=== PATIENT | female | born 1955 | race Caucasian/White ===

== ENCOUNTER 2016-11-07 17:42 | Emergency (ER) | payer MEDICARE, MEDICAID ==
[~2016-11-07] VITALS: Ht 152.4 cm; Wt 68.2 kg
[~2016-11-07 17:42] MED LIST: BENZ2TAB10 PO; LEVO100 PO; LITH300C3 PO; LORA0.5T2 PO; PROP10 PO; RISP2 PO; RISPC375 IM; TEMA15CA PO
[2016-11-07] MEDS ORDERED: HALOPERIDOL LACTATE 5 MG/ML VIAL IM ONE (19:15)
[2016-11-07] MEDS ORDERED: LORazepam 2 MG/ML VIAL IM ONE (19:15)
[2016-11-07 19:30] LABS: BASOPHILS % (AUTO) 0.6 % (0.0-2.0); EOSINOPHILS % (AUTO) 2.2 % (1.0-6.0); HEMATOCRIT 36.8 % (36-46); HEMOGLOBIN 11.9 g/dL (12.0-16.0); LYMPHOCYTES # (AUTO) 2.3 K/uL (1.0-4.8); LYMPHOCYTES % (AUTO) 20.9 % (22.0-44.0); MEAN CORPUSCULAR HEMOGLOBIN 30.2 pg (26.0-34.0); MEAN CORPUSCULAR HGB CONC 32.2 G/dL (31.0-37.0); MEAN CORPUSCULAR VOLUME 94 fL (80-100); MONOCYTES # (AUTO) 0.9 K/uL (0.1-1.0); MONOCYTES % (AUTO) 8.3 % (2.0-9.0); NEUTROPHILS # (AUTO) 7.6 K/uL (1.8-7.7); PLATELET COUNT (AUTO) 306 K/uL (150-450); RED BLOOD CELL COUNT(AUTO) 3.93 MIL/uL (4.00-5.20); WHITE BLOOD COUNT (AUTO) 11.2 K/uL (4.5-11.0)
[2016-11-07 19:39] LABS: ANION GAP 9 mmol/L (8-16); CARBON DIOXIDE 25 mmol/L (22-29); CHLORIDE 104 mmol/L (98-107); CREATININE 1.34 mg/dL (0.60-1.30); GLOMERULAR FILTR. RATE CALC 40 mL/min (>60); POTASSIUM 3.9 mmol/L (3.5-5.1); SODIUM SERUM 138 mmol/L (136-145); UREA NITROGEN, BLOOD 9 mg/dL (7-18)
[2016-11-07 19:45] LABS: ALANINE AMINOTRANSFERASE 34 U/L (12-78); ASPARTATE AMINOTRANSFERASE 28 U/L (15-37); BILIRUBIN,TOTAL 0.5 mg/dL (0.1-1.0); TOTAL PROTEIN, SERUM 7.5 g/dL (6.4-8.2)
[2016-11-07 20:06] VITALS: BP 117/69
[2016-11-10] MEDS ORDERED: LITH300C3 PO (11:03)
== END 2016-11-07 20:11 | disposition home or self-care (01) ==
LOC: EMS 17:43
DX: F20.0 Paranoid schizophrenia (principal); F15.10 Other stimulant abuse, uncomplicated; N28.9 Disorder of kidney and ureter, unspecified; I10 Essential (primary) hypertension; J44.9 Chronic obstructive pulmonary disease, unspecified; K21.9 Gastro-esophageal reflux disease without esophagitis; E03.9 Hypothyroidism, unspecified; F17.210 Nicotine dependence, cigarettes, uncomplicated; Z91.040 Latex allergy status
CPT/HCPCS: 36415; 80053; 85025; 96372; 99284; G0480; J1630; J2060

== ENCOUNTER 2016-12-15 17:16 | Emergency (ER) | payer OTHER, MEDICAID ==
[~2016-12-15] VITALS: Ht 152.4 cm; Wt 61.4 kg
[2016-12-15] MEDS ORDERED: RisperiDONE MICROSPHERES 37.5 MG/2 ML SYRINGE IM ONE (19:00)
[2016-12-15 19:24] VITALS: BP 140/85
== END 2016-12-15 19:27 | disposition home or self-care (01) ==
LOC: EMS 17:19
DX: F20.0 Paranoid schizophrenia (principal); F32.9 Major depressive disorder, single episode, unspecified; F41.9 Anxiety disorder, unspecified; D64.9 Anemia, unspecified; J44.9 Chronic obstructive pulmonary disease, unspecified; I10 Essential (primary) hypertension; E03.9 Hypothyroidism, unspecified; K21.9 Gastro-esophageal reflux disease without esophagitis; M19.90 Unspecified osteoarthritis, unspecified site; F31.9 Bipolar disorder, unspecified; Z79.899 Other long term (current) drug therapy
CPT/HCPCS: 96372; 99284; J2794

== ENCOUNTER 2017-06-11 02:47 | Emergency (ER) | payer MEDICARE, OTHER ==
[~2017-06-11] VITALS: Ht 152.4 cm; Wt 68.2 kg
[~2017-06-11 02:47] MED LIST changes: -PROP10 PO; +PROP10TA72 PO; -RISP2 PO
[2017-06-11 02:58] VITALS: BP 153/77
[2017-06-11] MEDS ORDERED: CYCLOBENZAPRINE HCL 10 MG TABLET PO ONE (04:00)
[2017-06-11] MEDS ORDERED: KETOROLAC TROMETHAMINE 60 MG/2 ML VIAL IM ONE (04:00)
== END 2017-06-11 06:57 | disposition home or self-care (01) ==
LOC: EMS 02:50
DX: S39.012A Strain of muscle, fascia and tendon of lower back, initial encounter (principal); G89.29 Other chronic pain; K21.9 Gastro-esophageal reflux disease without esophagitis; E03.9 Hypothyroidism, unspecified; F17.210 Nicotine dependence, cigarettes, uncomplicated; I10 Essential (primary) hypertension; J44.9 Chronic obstructive pulmonary disease, unspecified; F32.9 Major depressive disorder, single episode, unspecified; F41.9 Anxiety disorder, unspecified; Z90.49 Acquired absence of other specified parts of digestive tract; W06.XXXA Fall from bed, initial encounter; Y93.89 Activity, other specified; Y92.89 Other specified places as the place of occurrence of the external cause; Y99.8 Other external cause status
CPT/HCPCS: 81002; 96372; 99283; J1885

== ENCOUNTER → 2017-10-28 | Outpatient (CLI) | payer MEDICARE, OTHER | END | disposition home or self-care (01) | LOC: RADPV 14:01 | PROVIDERS: ATTEND Podiatrist Foot & Ankle Surgery | DX: M19.071 Primary osteoarthritis, right ankle and foot (principal) ==

== ENCOUNTER 2018-02-19 11:23 | Emergency (ER) | payer MEDICARE, MEDICAID ==
[~2018-02-19] VITALS: Ht 152.4 cm; Wt 68.2 kg
[2018-02-19 11:25] VITALS: BP 126/86
== END 2018-02-19 15:44 | disposition left against medical advice (07) ==
LOC: EMS 11:26
DX: F69 Unspecified disorder of adult personality and behavior (principal); F41.9 Anxiety disorder, unspecified; F31.9 Bipolar disorder, unspecified; J44.9 Chronic obstructive pulmonary disease, unspecified; K21.9 Gastro-esophageal reflux disease without esophagitis; I10 Essential (primary) hypertension; E03.9 Hypothyroidism, unspecified; F20.9 Schizophrenia, unspecified; F17.210 Nicotine dependence, cigarettes, uncomplicated; Z90.49 Acquired absence of other specified parts of digestive tract; Z90.721 Acquired absence of ovaries, unilateral; Z53.21 Procedure and treatment not carried out due to patient leaving prior to being seen by health care provider

== ENCOUNTER 2018-07-05 13:36 | Emergency (ER) | payer MEDICARE, OTHER, SELFPAY ==
[~2018-07-05] VITALS: Ht 157.5 cm; Wt 55.9 kg
[2018-07-05 13:57] VITALS: BP 111/70
== END 2018-07-05 18:51 | disposition left against medical advice (07) ==
LOC: EMS 13:38
DX: Z53.21 Procedure and treatment not carried out due to patient leaving prior to being seen by health care provider (principal)
CPT/HCPCS: 93005

== ENCOUNTER 2018-07-07 13:15 | Inpatient (IN) | payer MEDICARE, MEDICAID ==
[~2018-07-07] VITALS: Ht 152.4 cm; Wt 59.0 kg
[2018-07-07 15:00] VITALS: BP 146/77
[2018-07-07 18:33] VITALS: BP 110/73
[2018-07-07] MEDS: PROPRANOLOL HCL 10 MG TABLET PO SCH (18:37)
[2018-07-07] MEDS: LITHIUM CARBONATE 300 MG CAPSULE PO SCH (18:37)
[2018-07-07] MEDS: RisperiDONE MICROSPHERES 37.5 MG/2 ML SYRINGE IM SCH (19:06)
[2018-07-07] MEDS ORDERED: MAGNESIUM HYDROXIDE SUSPENSION 30 ML UDCUP PO PRN (19:30)
[2018-07-07] MEDS ORDERED: ALBUTEROL SULFATE HFA 90 MCG/PUFF 8 GM INHALER IH PRN (19:30)
[2018-07-07] MEDS ORDERED: BACITRACIN 28.4 GM OINTMENT TP PRN (19:30)
[2018-07-07] MEDS ORDERED: CloNIDine HCL 0.1 MG TABLET PO PRN (19:30)
[2018-07-07] MEDS ORDERED: BENZOCAINE/MENTHOL LOZENGE MM PRN (19:30)
[2018-07-07] MEDS ORDERED: LOPERAMIDE HCL 2 MG CAPSULE PO PRN (19:30)
[2018-07-07] MEDS ORDERED: MAG HYDROX/AL HYDROX/SIMETH ES 30 ML SUSPENSION UDCUP PO PRN (19:30)
[2018-07-07] MEDS ORDERED: PETROLATUM,WHITE 71 GM JELLY TP PRN (19:30)
[2018-07-07] MEDS ORDERED: ONDANSETRON HCL 4 MG TABLET PO PRN (19:30)
[2018-07-07] MEDS ORDERED: TEMAZEPAM 15 MG CAPSULE PO SCH (21:00)
[2018-07-07] MEDS ORDERED: LORazepam 0.5 MG TABLET PO SCH (21:00)
[2018-07-07] MEDS: BENZTROPINE MESYLATE 2 MG TABLET PO SCH (21:00)
[2018-07-08] MEDS: LEVOTHYROXINE SODIUM 100 MCG TABLET PO SCH (07:04)
[2018-07-08 07:33] LABS: LITHIUM 1.26 mmol/L (0.60-1.20)
[2018-07-08 07:48] LABS: CHOL/HDL RATIO 1.9 (3.9-5.7); FREE T4 (FREE THYROXINE) 1.27 ng/dL (0.76-1.46); THYROID STIMULATING HORMONE 0.16 uIU/mL (0.36-3.74)
[2018-07-08 08:16] VITALS: BP 152/72
[2018-07-08] MEDS: OMEPRAZOLE 20 MG CAPSULE PO SCH (08:48)
[2018-07-08] MEDS: DOCUSATE SODIUM 100 MG CAPSULE PO SCH (08:48)
[2018-07-08] MEDS: PROPRANOLOL HCL 10 MG TABLET PO SCH ×3 (08:48→16:05)
[2018-07-08] MEDS: LITHIUM CARBONATE 300 MG CAPSULE PO SCH ×2 (08:48→16:05)
[2018-07-08 16:10] VITALS: BP 110/62
[2018-07-08] MEDS: BENZTROPINE MESYLATE 2 MG TABLET PO SCH (19:53)
[2018-07-09] MEDS: LEVOTHYROXINE SODIUM 100 MCG TABLET PO SCH (06:57)
[2018-07-09 08:05] VITALS: BP 141/71
[2018-07-09] MEDS: OMEPRAZOLE 20 MG CAPSULE PO SCH (08:38)
[2018-07-09] MEDS: PROPRANOLOL HCL 10 MG TABLET PO SCH ×3 (08:38→17:30)
[2018-07-09] MEDS: DOCUSATE SODIUM 100 MG CAPSULE PO SCH (08:38)
[2018-07-09 17:11] VITALS: BP 118/65
[2018-07-09] MEDS: BENZTROPINE MESYLATE 2 MG TABLET PO SCH (20:13)
[2018-07-10] MEDS: LEVOTHYROXINE SODIUM 100 MCG TABLET PO SCH (06:40)
[2018-07-10] MEDS: PROPRANOLOL HCL 10 MG TABLET PO SCH ×3 (07:53→17:18)
[2018-07-10] MEDS: OMEPRAZOLE 20 MG CAPSULE PO SCH (07:54)
[2018-07-10] MEDS: DOCUSATE SODIUM 100 MG CAPSULE PO SCH (07:54)
[2018-07-10 08:56] VITALS: BP 122/97
[2018-07-10 16:41] VITALS: BP 115/80
[2018-07-10] MEDS: ZOLPIDEM TARTRATE 10 MG TABLET PO PRN (20:12)
[2018-07-10] MEDS: BENZTROPINE MESYLATE 2 MG TABLET PO SCH (20:15)
[2018-07-11 00:04] VITALS: BP 119/84
[2018-07-11] MEDS: LEVOTHYROXINE SODIUM 100 MCG TABLET PO SCH (06:56)
[2018-07-11] MEDS: LORazepam 2 MG TABLET PO PRN ×2 (08:13→16:58)
[2018-07-11] MEDS: HALOPERIDOL 5 MG TABLET PO PRN (08:13)
[2018-07-11 08:18] VITALS: BP 134/83
[2018-07-11] MEDS: OMEPRAZOLE 20 MG CAPSULE PO SCH (10:19)
[2018-07-11] MEDS: PROPRANOLOL HCL 10 MG TABLET PO SCH ×3 (10:19→16:36)
[2018-07-11] MEDS: DOCUSATE SODIUM 100 MG CAPSULE PO SCH (10:19)
[2018-07-11 12:20] VITALS: BP 123/69
[2018-07-11 16:23] VITALS: BP 132/78
[2018-07-11] MEDS: LITHIUM CARBONATE 300 MG CAPSULE PO SCH (20:08)
[2018-07-11] MEDS: ZOLPIDEM TARTRATE 10 MG TABLET PO PRN (20:08)
[2018-07-11] MEDS: BENZTROPINE MESYLATE 2 MG TABLET PO SCH (20:08)
[2018-07-12 00:13] VITALS: BP 137/67
[2018-07-12 01:30] LABS: APPEARANCE,URINE CLEAR (CLEAR); BILIRUBIN,URINE NEGATIVE (NEGATIVE); GLUCOSE, URINE (UA) NEGATIVE (NEGATIVE); KETONES,URINE NEGATIVE (NEGATIVE); LEUKOCYTE ESTERASE ,URINE TRACE (NEGATIVE); NITRATE,URINE NEGATIVE (NEGATIVE); OCCULT BLOOD,URINE NEGATIVE (NEGATIVE); PH,URINE 6.5 (5.0-8.0); PROTEIN,URINE NEGATIVE (NEGATIVE); UROBILINOGEN,URINE 0.2 mg/dL (<=1.0)
[2018-07-12 01:44] LABS: BACTERIA,URINE Few /HPF (None Seen); RBC,URINE 0-2 /HPF (0-2); SQUAMOUS EPITHELIAL CELL,UR Few /LPF (None Seen); WBC,URINE 0-2 /HPF (0-5)
[2018-07-12 06:08] LABS: BASOPHILS % (AUTO) 0.7 % (0.0-2.0); HEMATOCRIT 34.9 % (36-46); HEMOGLOBIN 11.9 g/dL (12.0-16.0); LYMPHOCYTES # (AUTO) 2.1 K/uL (1.0-4.8); LYMPHOCYTES % (AUTO) 23.5 % (22.0-44.0); MEAN CORPUSCULAR HGB CONC 34.2 G/dL (31.0-37.0); MEAN CORPUSCULAR VOLUME 93 fL (80-100); MONOCYTES # (AUTO) 0.7 K/uL (0.1-1.0); MONOCYTES % (AUTO) 7.9 % (2.0-9.0); NEUTROPHILS # (AUTO) 5.8 K/uL (1.8-7.7); NEUTROPHILS % (AUTO) 64.9 % (40.0-70.0); PLATELET COUNT (AUTO) 264 K/uL (150-450); RED BLOOD CELL COUNT(AUTO) 3.74 MIL/uL (4.00-5.20); RED CELL DISTRIBUTION WIDTH 12.2 % (11.5-14.5)
[2018-07-12 06:25] LABS: ALBUMIN 3.3 g/dL (3.4-5.0); BILIRUBIN,TOTAL 0.2 mg/dL (0.1-1.0); CALCIUM, TOTAL 9.7 mg/dL (8.8-10.5); CREATININE 1.09 mg/dL (0.60-1.30); POTASSIUM 4.2 mmol/L (3.5-5.1); TOTAL PROTEIN, SERUM 6.6 g/dL (6.4-8.2)
[2018-07-12] MEDS: LEVOTHYROXINE SODIUM 100 MCG TABLET PO SCH (07:02)
[2018-07-12 08:04] VITALS: BP 124/67
[2018-07-12] MEDS: OMEPRAZOLE 20 MG CAPSULE PO SCH (08:35)
[2018-07-12] MEDS: PROPRANOLOL HCL 10 MG TABLET PO SCH ×3 (08:35→16:17)
[2018-07-12] MEDS: DOCUSATE SODIUM 100 MG CAPSULE PO SCH (08:35)
[2018-07-12] MEDS: LORazepam 2 MG TABLET PO PRN ×2 (09:29→16:17)
[2018-07-12] MEDS: HALOPERIDOL 5 MG TABLET PO PRN ×2 (13:02→17:43)
[2018-07-12 16:00] VITALS: BP 135/71
[2018-07-12] MEDS: BENZTROPINE MESYLATE 2 MG TABLET PO SCH (20:55)
[2018-07-12] MEDS: LITHIUM CARBONATE 300 MG CAPSULE PO SCH (20:55)
[2018-07-13] MEDS: LEVOTHYROXINE SODIUM 100 MCG TABLET PO SCH (07:08)
[2018-07-13 08:54] VITALS: BP 123/96
[2018-07-13] MEDS: OMEPRAZOLE 20 MG CAPSULE PO SCH (09:22)
[2018-07-13] MEDS: DOCUSATE SODIUM 100 MG CAPSULE PO SCH (09:22)
[2018-07-13] MEDS: PROPRANOLOL HCL 10 MG TABLET PO SCH ×3 (09:23→17:00)
[2018-07-13 18:21] VITALS: BP 108/64
[2018-07-13] MEDS: IBUPROFEN 600 MG TABLET PO PRN (18:21)
[2018-07-13 19:11] VITALS: BP 105/55
[2018-07-13] MEDS: BENZTROPINE MESYLATE 2 MG TABLET PO SCH (21:36)
[2018-07-13] MEDS: LITHIUM CARBONATE 300 MG CAPSULE PO SCH (21:36)
[2018-07-13] MEDS: ZOLPIDEM TARTRATE 10 MG TABLET PO PRN (21:37)
[2018-07-14] MEDS: LORazepam 2 MG TABLET PO PRN (06:22)
[2018-07-14] MEDS: LEVOTHYROXINE SODIUM 100 MCG TABLET PO SCH (07:37)
[2018-07-14] MEDS: PROPRANOLOL HCL 10 MG TABLET PO SCH ×3 (08:55→16:32)
[2018-07-14] MEDS: DOCUSATE SODIUM 100 MG CAPSULE PO SCH (08:55)
[2018-07-14] MEDS: OMEPRAZOLE 20 MG CAPSULE PO SCH (08:55)
[2018-07-14 12:35] VITALS: BP 98/47
[2018-07-14 16:04] VITALS: BP 95/57
[2018-07-14] MEDS: LITHIUM CARBONATE 300 MG CAPSULE PO SCH (20:08)
[2018-07-14] MEDS: BENZTROPINE MESYLATE 2 MG TABLET PO SCH (20:08)
[2018-07-15 00:19] VITALS: BP 130/67
[2018-07-15] MEDS: LORazepam 2 MG TABLET PO PRN ×2 (00:21→08:41)
[2018-07-15] MEDS: IBUPROFEN 600 MG TABLET PO PRN (05:18)
[2018-07-15 05:20] VITALS: BP 101/48
[2018-07-15] MEDS: LEVOTHYROXINE SODIUM 100 MCG TABLET PO SCH (06:52)
[2018-07-15 08:00] VITALS: BP 119/72
[2018-07-15] MEDS: PROPRANOLOL HCL 10 MG TABLET PO SCH ×3 (08:41→16:33)
[2018-07-15] MEDS: OMEPRAZOLE 20 MG CAPSULE PO SCH (08:41)
[2018-07-15] MEDS: DOCUSATE SODIUM 100 MG CAPSULE PO SCH (08:41)
[2018-07-15 13:30] VITALS: BP 120/70
[2018-07-15 16:37] VITALS: BP 126/65
[2018-07-15] MEDS: LITHIUM CARBONATE 300 MG CAPSULE PO SCH (20:12)
[2018-07-15] MEDS: BENZTROPINE MESYLATE 2 MG TABLET PO SCH (20:12)
[2018-07-15] MEDS: ZOLPIDEM TARTRATE 10 MG TABLET PO PRN (21:16)
[2018-07-16] MEDS: LEVOTHYROXINE SODIUM 100 MCG TABLET PO SCH (07:27)
[2018-07-16 08:05] VITALS: BP 141/80
[2018-07-16] MEDS: DOCUSATE SODIUM 100 MG CAPSULE PO SCH (08:50)
[2018-07-16] MEDS: OMEPRAZOLE 20 MG CAPSULE PO SCH (08:50)
[2018-07-16] MEDS: PROPRANOLOL HCL 10 MG TABLET PO SCH ×3 (08:50→16:35)
[2018-07-16] MEDS: HALOPERIDOL 5 MG TABLET PO PRN (16:36)
[2018-07-16] MEDS: LORazepam 2 MG TABLET PO PRN (18:17)
[2018-07-16 18:32] VITALS: BP 145/91
[2018-07-16] MEDS: LITHIUM CARBONATE 300 MG CAPSULE PO SCH (20:38)
[2018-07-16] MEDS: BENZTROPINE MESYLATE 2 MG TABLET PO SCH (20:38)
[2018-07-16] MEDS: ZOLPIDEM TARTRATE 10 MG TABLET PO PRN (20:39)
[2018-07-17] MEDS: LEVOTHYROXINE SODIUM 100 MCG TABLET PO SCH (07:01)
[2018-07-17] MEDS: OMEPRAZOLE 20 MG CAPSULE PO SCH (08:22)
[2018-07-17] MEDS: PROPRANOLOL HCL 10 MG TABLET PO SCH ×3 (08:22→16:14)
[2018-07-17] MEDS: DOCUSATE SODIUM 100 MG CAPSULE PO SCH (08:22)
[2018-07-17 09:15] VITALS: BP 134/68
[2018-07-17] MEDS: ACETAMINOPHEN 325 MG TABLET PO PRN (12:18)
[2018-07-17 12:20] VITALS: BP 130/74
[2018-07-17 16:02] VITALS: BP 136/78
[2018-07-17] MEDS: LITHIUM CARBONATE 300 MG CAPSULE PO SCH (21:07)
[2018-07-17] MEDS: BENZTROPINE MESYLATE 2 MG TABLET PO SCH (21:07)
[2018-07-17] MEDS: HALOPERIDOL 5 MG TABLET PO PRN (21:41)
[2018-07-17] MEDS ORDERED: ZOLPIDEM TARTRATE 10 MG TABLET PO PRN (23:15)
[2018-07-17] MEDS: LORazepam 2 MG TABLET PO PRN (23:28)
[2018-07-18 02:49] VITALS: BP 124/74
[2018-07-18] MEDS: LEVOTHYROXINE SODIUM 100 MCG TABLET PO SCH (06:56)
[2018-07-18 08:19] VITALS: BP 110/71
[2018-07-18] MEDS: OMEPRAZOLE 20 MG CAPSULE PO SCH (08:31)
[2018-07-18] MEDS: DOCUSATE SODIUM 100 MG CAPSULE PO SCH (08:31)
[2018-07-18] MEDS: PROPRANOLOL HCL 10 MG TABLET PO SCH ×3 (08:31→16:10)
[2018-07-18] MEDS: IBUPROFEN 600 MG TABLET PO PRN (08:34)
[2018-07-18 12:31] VITALS: BP 112/65
[2018-07-18] MEDS: LORazepam 2 MG TABLET PO PRN ×2 (12:36→20:43)
[2018-07-18 16:45] VITALS: BP 126/60
[2018-07-18] MEDS: LITHIUM CARBONATE 300 MG CAPSULE PO SCH (20:00)
[2018-07-18] MEDS: BENZTROPINE MESYLATE 2 MG TABLET PO SCH (20:00)
[2018-07-19] VITALS (10 sets, daily range): BP systolic 104–123; BP diastolic 54–80
[2018-07-19] MEDS: ACETAMINOPHEN 325 MG TABLET PO PRN (00:55)
[2018-07-19] MEDS: LEVOTHYROXINE SODIUM 100 MCG TABLET PO SCH (06:47)
[2018-07-19] MEDS: PROPRANOLOL HCL 10 MG TABLET PO SCH ×3 (09:22→16:38)
[2018-07-19] MEDS: DOCUSATE SODIUM 100 MG CAPSULE PO SCH (09:22)
[2018-07-19] MEDS: IBUPROFEN 600 MG TABLET PO PRN (09:22)
[2018-07-19] MEDS: OMEPRAZOLE 20 MG CAPSULE PO SCH (09:22)
[2018-07-19] MEDS: BENZTROPINE MESYLATE 2 MG TABLET PO SCH (20:48)
[2018-07-19] MEDS: LITHIUM CARBONATE 300 MG CAPSULE PO SCH (20:48)
[2018-07-20 00:24] VITALS: BP 134/80
[2018-07-20] MEDS: IBUPROFEN 600 MG TABLET PO PRN (04:18)
[2018-07-20] MEDS: LEVOTHYROXINE SODIUM 100 MCG TABLET PO SCH (06:42)
[2018-07-20 08:00] VITALS: BP 139/78
[2018-07-20] MEDS: PROPRANOLOL HCL 10 MG TABLET PO SCH ×3 (08:31→17:39)
[2018-07-20] MEDS: DOCUSATE SODIUM 100 MG CAPSULE PO SCH (08:31)
[2018-07-20] MEDS: OMEPRAZOLE 20 MG CAPSULE PO SCH (08:31)
[2018-07-20 14:19] VITALS: BP 132/84
[2018-07-20] MEDS: LORazepam 2 MG TABLET PO PRN (14:20)
[2018-07-20 16:50] VITALS: BP 129/68
[2018-07-20] MEDS: BENZTROPINE MESYLATE 2 MG TABLET PO SCH (20:24)
[2018-07-20] MEDS: LITHIUM CARBONATE 300 MG CAPSULE PO SCH (20:24)
[2018-07-21 00:05] VITALS: BP 140/61
[2018-07-21] MEDS: IBUPROFEN 600 MG TABLET PO PRN (00:24)
[2018-07-21] MEDS: LEVOTHYROXINE SODIUM 100 MCG TABLET PO SCH (07:15)
[2018-07-21 08:50] VITALS: BP 128/74
[2018-07-21] MEDS: PROPRANOLOL HCL 10 MG TABLET PO SCH ×2 (09:01→13:11)
[2018-07-21] MEDS: DOCUSATE SODIUM 100 MG CAPSULE PO SCH (09:01)
[2018-07-21] MEDS: OMEPRAZOLE 20 MG CAPSULE PO SCH (09:01)
[2018-07-21] MEDS: LORazepam 2 MG TABLET PO PRN (09:04)
[2018-07-21] MEDS: RisperiDONE MICROSPHERES 37.5 MG/2 ML SYRINGE IM SCH (10:26)
[2018-07-21] MEDS ORDERED: OMEP20 PO ×2 (14:09→14:12)
[2018-07-21] MEDS ORDERED: DSS100 PO (14:10)
== END 2018-07-21 16:00 | disposition home or self-care (01) | DRG 885 ==
LOC: 3EX 14:32
PROVIDERS: ADMIT Psychiatry & Neurology Psychiatry; ATTEND Psychiatry & Neurology Psychiatry
DX: F25.9 Schizoaffective disorder, unspecified (principal); K21.9 Gastro-esophageal reflux disease without esophagitis; E03.9 Hypothyroidism, unspecified; I10 Essential (primary) hypertension; F32.9 Major depressive disorder, single episode, unspecified; G40.909 Epilepsy, unspecified, not intractable, without status epilepticus; K59.00 Constipation, unspecified; Z91.040 Latex allergy status; Z56.0 Unemployment, unspecified
CPT/HCPCS: 70450; 73521; 84436; 84439; 84443; 97116; 97161; 97166; 97530; 97535; G0378; J2794

== ENCOUNTER 2018-10-09 12:14 | Inpatient (IN) | payer MEDICARE, MEDICAID ==
[~2018-10-09] VITALS: Ht 149.9 cm; Wt 58.5 kg
[~2018-10-09 12:14] MED LIST changes: +DSS100 PO; -LORA0.5T2 PO; +OMEP20 PO; -TEMA15CA PO
[2018-10-09] MEDS ORDERED: LORazepam 2 MG/ML VIAL ONE (12:42)
[2018-10-09] MEDS ORDERED: DiphenhydrAMINE HCL 50 MG/ML VIAL ONE (12:42)
[2018-10-09] MEDS ORDERED: HALOPERIDOL LACTATE 5 MG/ML VIAL ONE (12:43)
[2018-10-09] MEDS ORDERED: LORazepam 2 MG/ML VIAL IM ONE (12:45)
[2018-10-09] MEDS ORDERED: HALOPERIDOL LACTATE 5 MG/ML VIAL IM ONE (12:45)
[2018-10-09] MEDS ORDERED: DiphenhydrAMINE HCL 50 MG/ML VIAL IM ONE (12:45)
[2018-10-09 13:43] VITALS: BP 144/73
[2018-10-09] MEDS ORDERED: TEMA15CA PO (14:39)
[2018-10-09] MEDS ORDERED: ATOR20TA86 PO (14:39)
[2018-10-09] MEDS ORDERED: LITH300C3 PO (14:40)
[2018-10-09] MEDS ORDERED: LORA0.5T2 PO (14:40)
[2018-10-09] MEDS ORDERED: -PHARMACY VACCINE NOTE- MISC ONE (14:45)
[2018-10-09 16:15] VITALS: BP 128/81
[2018-10-09] MEDS: PROPRANOLOL HCL 10 MG TABLET PO SCH (16:24)
[2018-10-09] MEDS: LORazepam 2 MG TABLET PO PRN (16:24)
[2018-10-09] MEDS: RisperiDONE MICROSPHERES 37.5 MG/2 ML SYRINGE IM SCH (16:25)
[2018-10-09] MEDS: LITHIUM CARBONATE 300 MG CAPSULE PO SCH (16:58)
[2018-10-09] MEDS: BENZTROPINE MESYLATE 2 MG TABLET PO SCH (21:00)
[2018-10-09] MEDS ORDERED: MAGNESIUM HYDROXIDE SUSPENSION 30 ML UDCUP PO PRN (21:15)
[2018-10-09] MEDS ORDERED: ONDANSETRON HCL 4 MG TABLET PO PRN (21:15)
[2018-10-09] MEDS ORDERED: ALBUTEROL SULFATE HFA 90 MCG/PUFF 8 GM INHALER IH PRN (21:15)
[2018-10-09] MEDS ORDERED: BACITRACIN 28.4 GM OINTMENT TP PRN (21:15)
[2018-10-09] MEDS ORDERED: MAG HYDROX/AL HYDROX/SIMETH ES 30 ML SUSPENSION UDCUP PO PRN (21:15)
[2018-10-09] MEDS ORDERED: PETROLATUM,WHITE 28 GM JELLY TP PRN (21:15)
[2018-10-09] MEDS ORDERED: BENZOCAINE/MENTHOL LOZENGE MM PRN (21:15)
[2018-10-09] MEDS ORDERED: CloNIDine HCL 0.1 MG TABLET PO PRN (21:15)
[2018-10-09] MEDS ORDERED: LOPERAMIDE HCL 2 MG CAPSULE PO PRN (21:15)
[2018-10-10 00:10] VITALS: BP 124/79
[2018-10-10] MEDS: HALOPERIDOL 5 MG TABLET PO PRN ×2 (00:53→12:41)
[2018-10-10] MEDS: LORazepam 2 MG TABLET PO PRN ×3 (00:53→12:41)
[2018-10-10] MEDS: LEVOTHYROXINE SODIUM 100 MCG TABLET PO SCH (07:19)
[2018-10-10] MEDS: DOCUSATE SODIUM 100 MG CAPSULE PO SCH (08:11)
[2018-10-10] MEDS: LITHIUM CARBONATE 300 MG CAPSULE PO SCH ×2 (08:12→16:57)
[2018-10-10] MEDS: OMEPRAZOLE 20 MG CAPSULE PO SCH (08:12)
[2018-10-10] MEDS: PROPRANOLOL HCL 10 MG TABLET PO SCH ×3 (08:12→16:57)
[2018-10-10 12:40] VITALS: BP 135/67
[2018-10-10 16:30] VITALS: BP 143/89
[2018-10-10] MEDS: ZOLPIDEM TARTRATE 10 MG TABLET PO PRN (20:43)
[2018-10-10] MEDS: BENZTROPINE MESYLATE 2 MG TABLET PO SCH (20:43)
[2018-10-10] MEDS: ATORVASTATIN CALCIUM 20 MG TABLET PO SCH (20:43)
[2018-10-11 00:30] VITALS: BP 131/86
[2018-10-11] MEDS: HALOPERIDOL 5 MG TABLET PO PRN ×2 (00:45→08:57)
[2018-10-11] MEDS: LORazepam 2 MG TABLET PO PRN ×4 (00:45→22:49)
[2018-10-11] MEDS: LEVOTHYROXINE SODIUM 100 MCG TABLET PO SCH (06:54)
[2018-10-11 08:10] VITALS: BP 112/62
[2018-10-11] MEDS: PROPRANOLOL HCL 10 MG TABLET PO SCH ×3 (08:13→16:41)
[2018-10-11] MEDS: LITHIUM CARBONATE 300 MG CAPSULE PO SCH ×2 (08:13→16:41)
[2018-10-11] MEDS: DOCUSATE SODIUM 100 MG CAPSULE PO SCH (08:13)
[2018-10-11] MEDS: ACETAMINOPHEN 325 MG TABLET PO PRN ×3 (08:14→20:40)
[2018-10-11] MEDS: OMEPRAZOLE 20 MG CAPSULE PO SCH (08:14)
[2018-10-11 12:40] VITALS: BP 136/62
[2018-10-11 16:16] VITALS: BP 140/73
[2018-10-11] MEDS: BENZTROPINE MESYLATE 2 MG TABLET PO SCH (20:40)
[2018-10-11] MEDS: ATORVASTATIN CALCIUM 20 MG TABLET PO SCH (20:40)
[2018-10-11] MEDS: ZOLPIDEM TARTRATE 10 MG TABLET PO PRN (20:55)
[2018-10-12 00:43] VITALS: BP 130/86
[2018-10-12] MEDS: IBUPROFEN 600 MG TABLET PO PRN (00:48)
[2018-10-12] MEDS: LEVOTHYROXINE SODIUM 100 MCG TABLET PO SCH (06:30)
[2018-10-12 09:00] VITALS: BP 136/84
[2018-10-12] MEDS: PROPRANOLOL HCL 10 MG TABLET PO SCH ×3 (09:00→17:25)
[2018-10-12] MEDS: LITHIUM CARBONATE 300 MG CAPSULE PO SCH ×2 (09:00→17:25)
[2018-10-12] MEDS: OMEPRAZOLE 20 MG CAPSULE PO SCH (09:00)
[2018-10-12] MEDS: LORazepam 2 MG TABLET PO PRN ×2 (09:01→23:00)
[2018-10-12] MEDS: DOCUSATE SODIUM 100 MG CAPSULE PO SCH (09:01)
[2018-10-12] MEDS ORDERED: LORazepam 2 MG/ML VIAL IM ONE (11:30)
[2018-10-12] MEDS ORDERED: HALOPERIDOL LACTATE 5 MG/ML VIAL IM ONE ×2 (11:30→11:45)
[2018-10-12 12:30] VITALS: BP 128/78
[2018-10-12 17:24] VITALS: BP 139/86
[2018-10-12] MEDS: BENZTROPINE MESYLATE 2 MG TABLET PO SCH (20:38)
[2018-10-12] MEDS: ATORVASTATIN CALCIUM 20 MG TABLET PO SCH (20:38)
[2018-10-13 00:08] VITALS: BP 129/82
[2018-10-13] MEDS: HALOPERIDOL 5 MG TABLET PO PRN ×2 (00:17→05:47)
[2018-10-13] MEDS: LORazepam 2 MG TABLET PO PRN ×3 (04:22→16:18)
[2018-10-13] MEDS: LEVOTHYROXINE SODIUM 100 MCG TABLET PO SCH (06:12)
[2018-10-13 08:13] VITALS: BP 140/90
[2018-10-13] MEDS: DOCUSATE SODIUM 100 MG CAPSULE PO SCH (08:13)
[2018-10-13] MEDS: PROPRANOLOL HCL 10 MG TABLET PO SCH ×3 (08:13→16:18)
[2018-10-13] MEDS: IBUPROFEN 600 MG TABLET PO PRN (08:13)
[2018-10-13] MEDS: LITHIUM CARBONATE 300 MG CAPSULE PO SCH ×2 (08:13→16:18)
[2018-10-13] MEDS: OMEPRAZOLE 20 MG CAPSULE PO SCH (08:13)
[2018-10-13 08:28] VITALS: BP 140/90
[2018-10-13 12:26] VITALS: BP 134/78
[2018-10-13 16:18] VITALS: BP 136/75
[2018-10-13] MEDS: ACETAMINOPHEN 325 MG TABLET PO PRN (16:18)
[2018-10-13] MEDS: BENZTROPINE MESYLATE 2 MG TABLET PO SCH (20:08)
[2018-10-13] MEDS: ATORVASTATIN CALCIUM 20 MG TABLET PO SCH (20:08)
[2018-10-13] MEDS: ZOLPIDEM TARTRATE 10 MG TABLET PO PRN (22:08)
[2018-10-14] MEDS: HALOPERIDOL 5 MG TABLET PO PRN (02:00)
[2018-10-14] MEDS: LORazepam 2 MG TABLET PO PRN ×2 (02:01→08:57)
[2018-10-14] MEDS: IBUPROFEN 600 MG TABLET PO PRN ×2 (05:32→18:05)
[2018-10-14 05:33] VITALS: BP 129/83
[2018-10-14] MEDS: LEVOTHYROXINE SODIUM 100 MCG TABLET PO SCH (05:45)
[2018-10-14 08:50] VITALS: BP 133/93
[2018-10-14] MEDS: OMEPRAZOLE 20 MG CAPSULE PO SCH (08:57)
[2018-10-14] MEDS: DOCUSATE SODIUM 100 MG CAPSULE PO SCH (08:57)
[2018-10-14] MEDS: PROPRANOLOL HCL 10 MG TABLET PO SCH ×3 (08:57→16:41)
[2018-10-14] MEDS: LITHIUM CARBONATE 300 MG CAPSULE PO SCH ×2 (08:57→16:41)
[2018-10-14 12:51] VITALS: BP 133/67
[2018-10-14] MEDS: ACETAMINOPHEN 325 MG TABLET PO PRN (12:51)
[2018-10-14 16:08] VITALS: BP 129/88
[2018-10-14 18:05] VITALS: BP 136/80
[2018-10-14] MEDS: BENZTROPINE MESYLATE 2 MG TABLET PO SCH (21:02)
[2018-10-14] MEDS: ATORVASTATIN CALCIUM 20 MG TABLET PO SCH (21:02)
[2018-10-15] MEDS: ZOLPIDEM TARTRATE 10 MG TABLET PO PRN (00:35)
[2018-10-15] MEDS: ACETAMINOPHEN 325 MG TABLET PO PRN ×2 (01:56→08:25)
[2018-10-15] MEDS: LEVOTHYROXINE SODIUM 100 MCG TABLET PO SCH (06:31)
[2018-10-15] MEDS: LORazepam 2 MG TABLET PO PRN ×2 (06:42→12:59)
[2018-10-15 08:25] VITALS: BP 121/88
[2018-10-15] MEDS: OMEPRAZOLE 20 MG CAPSULE PO SCH (08:25)
[2018-10-15] MEDS: LITHIUM CARBONATE 300 MG CAPSULE PO SCH ×2 (08:25→16:31)
[2018-10-15] MEDS: PROPRANOLOL HCL 10 MG TABLET PO SCH ×3 (08:25→16:31)
[2018-10-15] MEDS: DOCUSATE SODIUM 100 MG CAPSULE PO SCH (08:25)
[2018-10-15 08:59] LABS: LITHIUM 0.87 mmol/L (0.60-1.20)
[2018-10-15 09:29] LABS: APPEARANCE,URINE CLEAR (CLEAR); BILIRUBIN,URINE NEGATIVE (NEGATIVE); GLUCOSE, URINE (UA) NEGATIVE (NEGATIVE); KETONES,URINE NEGATIVE (NEGATIVE); LEUKOCYTE ESTERASE ,URINE NEGATIVE (NEGATIVE); NITRATE,URINE NEGATIVE (NEGATIVE); OCCULT BLOOD,URINE NEGATIVE (NEGATIVE); PH,URINE 6.5 (5.0-8.0); PROTEIN,URINE NEGATIVE (NEGATIVE); UROBILINOGEN,URINE 0.2 mg/dL (<=1.0)
[2018-10-15 09:31] LABS: ALBUMIN 4.1 g/dL (3.4-5.0); BILIRUBIN,TOTAL 0.3 mg/dL (0.1-1.0); CALCIUM, TOTAL 10.1 mg/dL (8.8-10.5); CHOL/HDL RATIO 2.1 (3.9-5.7); CREATININE 1.42 mg/dL (0.60-1.30); FREE T4 (FREE THYROXINE) 0.91 ng/dL (0.76-1.46); POTASSIUM 4.3 mmol/L (3.5-5.1); THYROID STIMULATING HORMONE 12.13 uIU/mL (0.36-3.74); TOTAL PROTEIN, SERUM 7.2 g/dL (6.4-8.2)
[2018-10-15 09:33] LABS: AMPHET/METH SCREEN,URINE NEGATIVE (NEGATIVE); BARBITURATE SCREEN, URINE NEGATIVE (NEGATIVE); BENZODIAZEPINES SCREEN,URINE NEGATIVE (NEGATIVE); CANNABINOID SCREEN,URINE NEGATIVE (NEGATIVE); COCAINE SCREEN,URINE NEGATIVE (NEGATIVE); METHADONE SCREEN, URINE NEGATIVE (NEGATIVE); OPIATE SCREEN,URINE NEGATIVE (NEGATIVE); PHENCYCLIDINE SCREEN,URINE NEGATIVE (NEGATIVE)
[2018-10-15 12:30] VITALS: BP 110/64
[2018-10-15] MEDS: IBUPROFEN 600 MG TABLET PO PRN (12:59)
[2018-10-15 16:09] VITALS: BP 118/79
[2018-10-15] MEDS ORDERED: LACTULOSE 20 GM/30 ML SOLUTION UDCUP PO ONE (18:00)
[2018-10-15] MEDS: ATORVASTATIN CALCIUM 20 MG TABLET PO SCH (20:35)
[2018-10-15] MEDS: BENZTROPINE MESYLATE 2 MG TABLET PO SCH (20:35)
[2018-10-16] MEDS: LEVOTHYROXINE SODIUM 125 MCG TABLET PO SCH (06:37)
[2018-10-16] MEDS ORDERED: LACTULOSE 20 GM/30 ML SOLUTION UDCUP PO ONE (09:00)
[2018-10-16 09:10] VITALS: BP 140/90
[2018-10-16] MEDS: OMEPRAZOLE 20 MG CAPSULE PO SCH (09:13)
[2018-10-16] MEDS: DOCUSATE SODIUM 100 MG CAPSULE PO SCH (09:13)
[2018-10-16] MEDS: PROPRANOLOL HCL 10 MG TABLET PO SCH ×3 (09:13→16:41)
[2018-10-16] MEDS: LORazepam 2 MG TABLET PO PRN (09:13)
[2018-10-16] MEDS: LITHIUM CARBONATE 300 MG CAPSULE PO SCH ×2 (09:13→16:41)
[2018-10-16 12:15] VITALS: BP 126/76
[2018-10-16 16:38] VITALS: BP 132/81
[2018-10-16] MEDS: BENZTROPINE MESYLATE 2 MG TABLET PO SCH (20:33)
[2018-10-16] MEDS: ATORVASTATIN CALCIUM 20 MG TABLET PO SCH (20:33)
[2018-10-16] MEDS: ZOLPIDEM TARTRATE 10 MG TABLET PO PRN (22:52)
[2018-10-17] MEDS: LORazepam 2 MG TABLET PO PRN ×2 (05:45→16:46)
[2018-10-17] MEDS: LEVOTHYROXINE SODIUM 125 MCG TABLET PO SCH (05:45)
[2018-10-17 08:20] VITALS: BP 126/86
[2018-10-17 08:28] LABS: BASOPHILS % (AUTO) 0.6 % (0.0-2.0); EOSINOPHILS % (AUTO) 2.4 % (1.0-6.0); HEMATOCRIT 34.5 % (36-46); HEMOGLOBIN 11.4 g/dL (12.0-16.0); LYMPHOCYTES # (AUTO) 1.9 K/uL (1.0-4.8); LYMPHOCYTES % (AUTO) 27.3 % (22.0-44.0); MEAN CORPUSCULAR HEMOGLOBIN 30.4 pg (26.0-34.0); MEAN CORPUSCULAR HGB CONC 33.1 G/dL (31.0-37.0); MEAN CORPUSCULAR VOLUME 92 fL (80-100); MONOCYTES # (AUTO) 0.6 K/uL (0.1-1.0); MONOCYTES % (AUTO) 8.5 % (2.0-9.0); NEUTROPHILS # (AUTO) 4.1 K/uL (1.8-7.7); NEUTROPHILS % (AUTO) 61.2 % (40.0-70.0); PLATELET COUNT (AUTO) 254 K/uL (150-450); RED BLOOD CELL COUNT(AUTO) 3.76 MIL/uL (4.00-5.20); RED CELL DISTRIBUTION WIDTH 12.7 % (11.5-14.5)
[2018-10-17] MEDS: PROPRANOLOL HCL 10 MG TABLET PO SCH ×3 (08:31→16:46)
[2018-10-17] MEDS: OMEPRAZOLE 20 MG CAPSULE PO SCH (08:31)
[2018-10-17] MEDS: LITHIUM CARBONATE 300 MG CAPSULE PO SCH ×2 (08:31→16:46)
[2018-10-17] MEDS: DOCUSATE SODIUM 100 MG CAPSULE PO SCH (08:32)
[2018-10-17 08:40] LABS: HEMOGLOBIN A1C 6.1 % (4.5-6.2)
[2018-10-17 11:14] LABS: CALCIUM, TOTAL 10.5 mg/dL (8.8-10.5); CHOL/HDL RATIO 2.2 (3.9-5.7); CREATININE 1.49 mg/dL (0.60-1.30); POTASSIUM 4.2 mmol/L (3.5-5.1)
[2018-10-17 12:30] VITALS: BP 127/80
[2018-10-17 16:21] VITALS: BP 127/88
[2018-10-17] MEDS: BENZTROPINE MESYLATE 2 MG TABLET PO SCH (20:22)
[2018-10-17] MEDS: ATORVASTATIN CALCIUM 20 MG TABLET PO SCH (20:22)
[2018-10-17] MEDS: ZOLPIDEM TARTRATE 10 MG TABLET PO PRN (22:48)
[2018-10-18] MEDS: IBUPROFEN 600 MG TABLET PO PRN (00:11)
[2018-10-18] MEDS: LORazepam 2 MG TABLET PO PRN ×2 (00:11→08:07)
[2018-10-18 04:05] VITALS: BP 130/66
[2018-10-18] MEDS: HALOPERIDOL 5 MG TABLET PO PRN (04:19)
[2018-10-18] MEDS: LEVOTHYROXINE SODIUM 125 MCG TABLET PO SCH (06:54)
[2018-10-18] MEDS: OMEPRAZOLE 20 MG CAPSULE PO SCH (08:07)
[2018-10-18] MEDS: PROPRANOLOL HCL 10 MG TABLET PO SCH ×3 (08:07→16:34)
[2018-10-18] MEDS: DOCUSATE SODIUM 100 MG CAPSULE PO SCH (08:07)
[2018-10-18] MEDS: LITHIUM CARBONATE 300 MG CAPSULE PO SCH ×2 (08:07→16:34)
[2018-10-18 08:26] VITALS: BP 122/77
[2018-10-18 12:20] VITALS: BP 121/80
[2018-10-18 16:33] VITALS: BP 119/76
[2018-10-18] MEDS: BENZTROPINE MESYLATE 2 MG TABLET PO SCH (20:41)
[2018-10-18] MEDS: ATORVASTATIN CALCIUM 20 MG TABLET PO SCH (20:41)
[2018-10-19 02:50] VITALS: BP 135/87
[2018-10-19] MEDS: LORazepam 2 MG TABLET PO PRN ×2 (03:04→09:03)
[2018-10-19] MEDS: LEVOTHYROXINE SODIUM 125 MCG TABLET PO SCH (07:05)
[2018-10-19 08:21] VITALS: BP 132/80
[2018-10-19] MEDS: OMEPRAZOLE 20 MG CAPSULE PO SCH (09:03)
[2018-10-19] MEDS: DOCUSATE SODIUM 100 MG CAPSULE PO SCH (09:03)
[2018-10-19] MEDS: PROPRANOLOL HCL 10 MG TABLET PO SCH ×3 (09:03→17:15)
[2018-10-19] MEDS: LITHIUM CARBONATE 300 MG CAPSULE PO SCH ×2 (09:03→17:15)
[2018-10-19 10:42] VITALS: BP 124/78
[2018-10-19] MEDS: ACETAMINOPHEN 325 MG TABLET PO PRN ×2 (10:42→22:49)
[2018-10-19 12:18] VITALS: BP 112/78
[2018-10-19 16:08] VITALS: BP 125/75
[2018-10-19] MEDS: BENZTROPINE MESYLATE 2 MG TABLET PO SCH (20:12)
[2018-10-19] MEDS: ATORVASTATIN CALCIUM 20 MG TABLET PO SCH (20:12)
[2018-10-19 22:49] VITALS: BP 118/74
[2018-10-19] MEDS: ZOLPIDEM TARTRATE 10 MG TABLET PO PRN (22:49)
[2018-10-20] MEDS: LORazepam 2 MG TABLET PO PRN (00:28)
[2018-10-20] MEDS: LEVOTHYROXINE SODIUM 125 MCG TABLET PO SCH (07:15)
[2018-10-20 09:05] VITALS: BP 111/61
[2018-10-20] MEDS: OMEPRAZOLE 20 MG CAPSULE PO SCH (09:08)
[2018-10-20] MEDS: PROPRANOLOL HCL 10 MG TABLET PO SCH ×3 (09:08→17:04)
[2018-10-20] MEDS: LITHIUM CARBONATE 300 MG CAPSULE PO SCH ×2 (09:08→17:04)
[2018-10-20] MEDS: DOCUSATE SODIUM 100 MG CAPSULE PO SCH (09:08)
[2018-10-20 12:30] VITALS: BP 112/66
[2018-10-20 16:04] VITALS: BP 119/76
[2018-10-20] MEDS: ACETAMINOPHEN 325 MG TABLET PO PRN (19:12)
[2018-10-20] MEDS: ATORVASTATIN CALCIUM 20 MG TABLET PO SCH (20:53)
[2018-10-20] MEDS: BENZTROPINE MESYLATE 2 MG TABLET PO SCH (20:53)
[2018-10-20] MEDS: ZOLPIDEM TARTRATE 10 MG TABLET PO PRN (23:09)
[2018-10-21 02:07] VITALS: BP 135/80
[2018-10-21] MEDS: LORazepam 2 MG TABLET PO PRN ×2 (02:12→08:26)
[2018-10-21] MEDS: HALOPERIDOL 5 MG TABLET PO PRN (02:12)
[2018-10-21] MEDS: LEVOTHYROXINE SODIUM 125 MCG TABLET PO SCH (06:42)
[2018-10-21 08:14] VITALS: BP 130/79
[2018-10-21] MEDS: LITHIUM CARBONATE 300 MG CAPSULE PO SCH ×2 (08:26→16:45)
[2018-10-21] MEDS: OMEPRAZOLE 20 MG CAPSULE PO SCH (08:26)
[2018-10-21] MEDS: PROPRANOLOL HCL 10 MG TABLET PO SCH ×3 (08:26→16:45)
[2018-10-21] MEDS: DOCUSATE SODIUM 100 MG CAPSULE PO SCH (08:26)
[2018-10-21] MEDS: ACETAMINOPHEN 325 MG TABLET PO PRN (08:35)
[2018-10-21 12:35] VITALS: BP 124/81
[2018-10-21 16:07] VITALS: BP 116/67
[2018-10-21] MEDS: BENZTROPINE MESYLATE 2 MG TABLET PO SCH (20:36)
[2018-10-21] MEDS: ATORVASTATIN CALCIUM 20 MG TABLET PO SCH (20:37)
[2018-10-21] MEDS: ZOLPIDEM TARTRATE 10 MG TABLET PO PRN (20:55)
[2018-10-22] MEDS: LEVOTHYROXINE SODIUM 125 MCG TABLET PO SCH (06:49)
[2018-10-22 08:26] VITALS: BP 115/85
[2018-10-22] MEDS: PROPRANOLOL HCL 10 MG TABLET PO SCH ×3 (09:11→16:19)
[2018-10-22] MEDS: LORazepam 2 MG TABLET PO PRN (09:11)
[2018-10-22] MEDS: OMEPRAZOLE 20 MG CAPSULE PO SCH (09:11)
[2018-10-22] MEDS: DOCUSATE SODIUM 100 MG CAPSULE PO SCH (09:11)
[2018-10-22] MEDS: LITHIUM CARBONATE 300 MG CAPSULE PO SCH ×2 (09:11→16:18)
[2018-10-22 12:19] VITALS: BP 132/75
[2018-10-22 16:32] VITALS: BP_SYST 113; BP_SYST 119; BP_DIAS 62; BP_DIAS 69
[2018-10-22 19:47] VITALS: BP 114/64
[2018-10-22] MEDS: ACETAMINOPHEN 325 MG TABLET PO PRN (19:47)
[2018-10-22] MEDS: BENZTROPINE MESYLATE 2 MG TABLET PO SCH (20:07)
[2018-10-22] MEDS: ATORVASTATIN CALCIUM 20 MG TABLET PO SCH (20:07)
[2018-10-23] MEDS: LEVOTHYROXINE SODIUM 125 MCG TABLET PO SCH (06:57)
[2018-10-23] MEDS: OMEPRAZOLE 20 MG CAPSULE PO SCH (08:03)
[2018-10-23] MEDS: LITHIUM CARBONATE 300 MG CAPSULE PO SCH ×2 (08:03→17:13)
[2018-10-23] MEDS: PROPRANOLOL HCL 10 MG TABLET PO SCH ×3 (08:03→17:13)
[2018-10-23] MEDS: LORazepam 2 MG TABLET PO PRN (08:04)
[2018-10-23] MEDS: DOCUSATE SODIUM 100 MG CAPSULE PO SCH (08:04)
[2018-10-23] MEDS: RisperiDONE MICROSPHERES 37.5 MG/2 ML SYRINGE IM SCH (09:14)
[2018-10-23 09:18] VITALS: BP 128/78
[2018-10-23 12:45] VITALS: BP 133/81
[2018-10-23 17:10] VITALS: BP 139/85
[2018-10-23] MEDS: BENZTROPINE MESYLATE 2 MG TABLET PO SCH (20:06)
[2018-10-23] MEDS: ATORVASTATIN CALCIUM 20 MG TABLET PO SCH (20:06)
[2018-10-24 00:05] VITALS: BP 129/87
[2018-10-24] MEDS: LORazepam 2 MG TABLET PO PRN (00:12)
[2018-10-24] MEDS: ZOLPIDEM TARTRATE 10 MG TABLET PO PRN ×2 (00:12→22:02)
[2018-10-24] MEDS: ACETAMINOPHEN 325 MG TABLET PO PRN ×3 (00:13→16:52)
[2018-10-24] MEDS: LEVOTHYROXINE SODIUM 125 MCG TABLET PO SCH (06:30)
[2018-10-24 08:19] LABS: BAND NEUTROPHILS % (MANUAL) 0 % (0-5)
[2018-10-24 08:25] VITALS: BP 140/77
[2018-10-24 08:43] LABS: HEMATOCRIT 35.6 % (36-46); HEMOGLOBIN 11.6 g/dL (12.0-16.0); MEAN CORPUSCULAR HEMOGLOBIN 30.2 pg (26.0-34.0); MEAN CORPUSCULAR HGB CONC 32.6 G/dL (31.0-37.0); MEAN CORPUSCULAR VOLUME 93 fL (80-100); PLATELET COUNT (AUTO) 261 K/uL (150-450); RED BLOOD CELL COUNT(AUTO) 3.85 MIL/uL (4.00-5.20); RED CELL DISTRIBUTION WIDTH 12.6 % (11.5-14.5)
[2018-10-24 08:53] LABS: LITHIUM 0.79 mmol/L (0.60-1.20)
[2018-10-24 09:08] LABS: CALCIUM, TOTAL 9.9 mg/dL (8.8-10.5); CREATININE 1.44 mg/dL (0.60-1.30); PHOSPHORUS 4.4 mg/dL (2.5-4.9); POTASSIUM 4.3 mmol/L (3.5-5.1)
[2018-10-24] MEDS: PROPRANOLOL HCL 10 MG TABLET PO SCH ×3 (09:09→16:52)
[2018-10-24] MEDS: OMEPRAZOLE 20 MG CAPSULE PO SCH (09:09)
[2018-10-24] MEDS: DOCUSATE SODIUM 100 MG CAPSULE PO SCH (09:09)
[2018-10-24] MEDS: LITHIUM CARBONATE 300 MG CAPSULE PO SCH ×2 (09:09→16:52)
[2018-10-24 09:16] LABS: BASOPHILS % (MANUAL) 1 % (0-2); EOSINOPHILS % (MANUAL) 2 % (1-6); LYMPHOCYTES % (MANUAL) 23 % (22-44); MONOCYTES % (MANUAL) 6 % (2-9); SEGMENTED NEUTROPHILS % 68 % (40-70)
[2018-10-24 10:53] VITALS: BP 126/82
[2018-10-24 16:48] VITALS: BP 139/90
[2018-10-24] MEDS: BENZTROPINE MESYLATE 2 MG TABLET PO SCH (20:37)
[2018-10-24] MEDS: ATORVASTATIN CALCIUM 20 MG TABLET PO SCH (20:37)
[2018-10-25 02:22] VITALS: BP 121/77
[2018-10-25] MEDS: LORazepam 2 MG TABLET PO PRN ×2 (02:23→15:40)
[2018-10-25] MEDS: ACETAMINOPHEN 325 MG TABLET PO PRN ×2 (02:23→16:09)
[2018-10-25] MEDS: LEVOTHYROXINE SODIUM 125 MCG TABLET PO SCH (05:57)
[2018-10-25 08:18] VITALS: BP 116/60
[2018-10-25] MEDS: LITHIUM CARBONATE 300 MG CAPSULE PO SCH ×2 (09:03→16:59)
[2018-10-25] MEDS: DOCUSATE SODIUM 100 MG CAPSULE PO SCH (09:03)
[2018-10-25] MEDS: PROPRANOLOL HCL 10 MG TABLET PO SCH ×3 (09:03→16:59)
[2018-10-25] MEDS: OMEPRAZOLE 20 MG CAPSULE PO SCH (09:03)
[2018-10-25 12:30] VITALS: BP 123/89
[2018-10-25 16:07] VITALS: BP 119/70
[2018-10-25 16:59] VITALS: BP 126/80
[2018-10-25] MEDS: BENZTROPINE MESYLATE 2 MG TABLET PO SCH (20:40)
[2018-10-25] MEDS: ATORVASTATIN CALCIUM 20 MG TABLET PO SCH (20:40)
[2018-10-26 04:06] VITALS: BP 101/67
[2018-10-26] MEDS: ACETAMINOPHEN 325 MG TABLET PO PRN ×3 (04:07→16:45)
[2018-10-26] MEDS: LEVOTHYROXINE SODIUM 125 MCG TABLET PO SCH (06:02)
[2018-10-26 08:35] VITALS: BP 120/70
[2018-10-26] MEDS: OMEPRAZOLE 20 MG CAPSULE PO SCH (08:39)
[2018-10-26] MEDS: LITHIUM CARBONATE 300 MG CAPSULE PO SCH ×2 (08:39→16:45)
[2018-10-26] MEDS: PROPRANOLOL HCL 10 MG TABLET PO SCH ×3 (08:39→16:45)
[2018-10-26] MEDS: DOCUSATE SODIUM 100 MG CAPSULE PO SCH (08:39)
[2018-10-26 12:40] VITALS: BP 123/78
[2018-10-26 16:45] VITALS: BP 115/83
[2018-10-26] MEDS: ATORVASTATIN CALCIUM 20 MG TABLET PO SCH (20:36)
[2018-10-26] MEDS: BENZTROPINE MESYLATE 2 MG TABLET PO SCH (20:36)
[2018-10-27] MEDS: LEVOTHYROXINE SODIUM 125 MCG TABLET PO SCH (06:55)
[2018-10-27] MEDS: OMEPRAZOLE 20 MG CAPSULE PO SCH (08:09)
[2018-10-27] MEDS: DOCUSATE SODIUM 100 MG CAPSULE PO SCH (08:09)
[2018-10-27] MEDS: LITHIUM CARBONATE 300 MG CAPSULE PO SCH ×2 (08:10→16:40)
[2018-10-27] MEDS: LORazepam 2 MG TABLET PO PRN (08:10)
[2018-10-27] MEDS: PROPRANOLOL HCL 10 MG TABLET PO SCH ×3 (08:10→16:40)
[2018-10-27 08:15] VITALS: BP 123/71
[2018-10-27 12:39] VITALS: BP 119/70
[2018-10-27] MEDS: ACETAMINOPHEN 325 MG TABLET PO PRN (12:40)
[2018-10-27 16:34] VITALS: BP 126/84
[2018-10-27] MEDS: BENZTROPINE MESYLATE 2 MG TABLET PO SCH (20:19)
[2018-10-27] MEDS: ATORVASTATIN CALCIUM 20 MG TABLET PO SCH (20:19)
[2018-10-28] MEDS: LEVOTHYROXINE SODIUM 125 MCG TABLET PO SCH (06:36)
[2018-10-28 07:00] VITALS: BP 110/72
[2018-10-28 08:13] VITALS: BP 111/77
[2018-10-28] MEDS: DOCUSATE SODIUM 100 MG CAPSULE PO SCH (08:46)
[2018-10-28] MEDS: LITHIUM CARBONATE 300 MG CAPSULE PO SCH ×2 (08:46→16:37)
[2018-10-28] MEDS: PROPRANOLOL HCL 10 MG TABLET PO SCH ×3 (08:46→16:36)
[2018-10-28] MEDS: OMEPRAZOLE 20 MG CAPSULE PO SCH (08:46)
[2018-10-28] MEDS: ACETAMINOPHEN 325 MG TABLET PO PRN ×2 (08:47→20:16)
[2018-10-28 12:15] VITALS: BP 117/62
[2018-10-28 16:11] VITALS: BP 128/69
[2018-10-28] MEDS: ZOLPIDEM TARTRATE 10 MG TABLET PO PRN (20:45)
[2018-10-28] MEDS: BENZTROPINE MESYLATE 2 MG TABLET PO SCH (20:45)
[2018-10-28] MEDS: ATORVASTATIN CALCIUM 20 MG TABLET PO SCH (20:45)
[2018-10-29 03:08] VITALS: BP 113/67
[2018-10-29] MEDS: LEVOTHYROXINE SODIUM 125 MCG TABLET PO SCH (06:38)
[2018-10-29] MEDS: DOCUSATE SODIUM 100 MG CAPSULE PO SCH (08:16)
[2018-10-29] MEDS: OMEPRAZOLE 20 MG CAPSULE PO SCH (08:16)
[2018-10-29] MEDS: PROPRANOLOL HCL 10 MG TABLET PO SCH ×3 (08:16→16:37)
[2018-10-29] MEDS: LITHIUM CARBONATE 300 MG CAPSULE PO SCH ×2 (08:16→16:37)
[2018-10-29 08:17] VITALS: BP 128/86
[2018-10-29] MEDS: ACETAMINOPHEN 325 MG TABLET PO PRN ×2 (08:17→17:29)
[2018-10-29 12:30] VITALS: BP 126/70
[2018-10-29 16:31] VITALS: BP 127/77
[2018-10-29] MEDS: ATORVASTATIN CALCIUM 20 MG TABLET PO SCH (20:48)
[2018-10-29] MEDS: ZOLPIDEM TARTRATE 10 MG TABLET PO PRN (20:48)
[2018-10-29] MEDS: BENZTROPINE MESYLATE 2 MG TABLET PO SCH (20:48)
[2018-10-30 01:45] VITALS: BP 116/70
[2018-10-30] MEDS: LEVOTHYROXINE SODIUM 125 MCG TABLET PO SCH (06:34)
[2018-10-30 08:20] VITALS: BP 130/73
[2018-10-30] MEDS: PROPRANOLOL HCL 10 MG TABLET PO SCH ×3 (08:46→16:40)
[2018-10-30] MEDS: DOCUSATE SODIUM 100 MG CAPSULE PO SCH (08:46)
[2018-10-30] MEDS: LITHIUM CARBONATE 300 MG CAPSULE PO SCH ×2 (08:46→16:40)
[2018-10-30] MEDS: OMEPRAZOLE 20 MG CAPSULE PO SCH (08:46)
[2018-10-30 12:13] VITALS: BP 135/72
[2018-10-30 16:37] VITALS: BP 157/81
[2018-10-30] MEDS: ATORVASTATIN CALCIUM 20 MG TABLET PO SCH (20:53)
[2018-10-30] MEDS: BENZTROPINE MESYLATE 2 MG TABLET PO SCH (20:53)
[2018-10-30] MEDS: ZOLPIDEM TARTRATE 10 MG TABLET PO PRN (23:14)
[2018-10-30] MEDS: ACETAMINOPHEN 325 MG TABLET PO PRN (23:41)
[2018-10-31 04:19] VITALS: BP 124/69
[2018-10-31] MEDS: LEVOTHYROXINE SODIUM 125 MCG TABLET PO SCH (06:36)
[2018-10-31] MEDS: LITHIUM CARBONATE 300 MG CAPSULE PO SCH ×2 (08:14→16:33)
[2018-10-31] MEDS: PROPRANOLOL HCL 10 MG TABLET PO SCH ×3 (08:14→16:33)
[2018-10-31] MEDS: OMEPRAZOLE 20 MG CAPSULE PO SCH (08:14)
[2018-10-31] MEDS: DOCUSATE SODIUM 100 MG CAPSULE PO SCH (08:14)
[2018-10-31 08:17] VITALS: BP 124/72
[2018-10-31 10:56] VITALS: BP 118/74
[2018-10-31] MEDS: ACETAMINOPHEN 325 MG TABLET PO PRN ×2 (10:56→16:42)
[2018-10-31 12:45] VITALS: BP 112/65
[2018-10-31 16:12] VITALS: BP 128/74
[2018-10-31] MEDS: ATORVASTATIN CALCIUM 20 MG TABLET PO SCH (20:35)
[2018-10-31] MEDS: BENZTROPINE MESYLATE 2 MG TABLET PO SCH (20:35)
[2018-10-31] MEDS: ZOLPIDEM TARTRATE 10 MG TABLET PO PRN (23:29)
[2018-11-01 00:11] VITALS: BP 134/72
[2018-11-01] MEDS: LEVOTHYROXINE SODIUM 125 MCG TABLET PO SCH (06:26)
[2018-11-01] MEDS: PROPRANOLOL HCL 10 MG TABLET PO SCH ×3 (08:51→16:43)
[2018-11-01] MEDS: DOCUSATE SODIUM 100 MG CAPSULE PO SCH (08:51)
[2018-11-01] MEDS: LITHIUM CARBONATE 300 MG CAPSULE PO SCH ×2 (08:51→16:43)
[2018-11-01] MEDS: OMEPRAZOLE 20 MG CAPSULE PO SCH (08:51)
[2018-11-01 09:07] VITALS: BP 119/89
[2018-11-01 12:10] VITALS: BP 111/70
[2018-11-01 16:39] VITALS: BP 140/77
[2018-11-01 20:09] VITALS: BP 128/72
[2018-11-01] MEDS: ATORVASTATIN CALCIUM 20 MG TABLET PO SCH (20:09)
[2018-11-01] MEDS: BENZTROPINE MESYLATE 2 MG TABLET PO SCH (20:09)
[2018-11-01] MEDS: ACETAMINOPHEN 325 MG TABLET PO PRN (20:09)
[2018-11-01] MEDS: ZOLPIDEM TARTRATE 10 MG TABLET PO PRN (21:17)
[2018-11-02 01:43] VITALS: BP 106/69
[2018-11-02] MEDS: LEVOTHYROXINE SODIUM 125 MCG TABLET PO SCH (05:24)
[2018-11-02] MEDS: ACETAMINOPHEN 325 MG TABLET PO PRN ×2 (06:02→16:18)
[2018-11-02 08:14] LABS: BAND NEUTROPHILS % (MANUAL) 0 % (0-5)
[2018-11-02 08:25] LABS: HEMATOCRIT 35.3 % (36-46); HEMOGLOBIN 11.5 g/dL (12.0-16.0); MEAN CORPUSCULAR HEMOGLOBIN 30.6 pg (26.0-34.0); MEAN CORPUSCULAR HGB CONC 32.6 G/dL (31.0-37.0); MEAN CORPUSCULAR VOLUME 94 fL (80-100); PLATELET COUNT (AUTO) 338 K/uL (150-450); RED BLOOD CELL COUNT(AUTO) 3.76 MIL/uL (4.00-5.20)
[2018-11-02 08:44] LABS: CALCIUM, TOTAL 9.8 mg/dL (8.8-10.5); CREATININE 1.54 mg/dL (0.60-1.30); MAGNESIUM 2.1 mg/dL (1.80-2.40); PHOSPHORUS 3.8 mg/dL (2.5-4.9)
[2018-11-02 08:50] VITALS: BP 112/64
[2018-11-02] MEDS: OMEPRAZOLE 20 MG CAPSULE PO SCH (08:50)
[2018-11-02] MEDS: PROPRANOLOL HCL 10 MG TABLET PO SCH ×3 (08:50→16:18)
[2018-11-02] MEDS: LITHIUM CARBONATE 300 MG CAPSULE PO SCH ×2 (08:50→16:18)
[2018-11-02] MEDS: DOCUSATE SODIUM 100 MG CAPSULE PO SCH (08:50)
[2018-11-02 09:20] LABS: EOSINOPHILS % (MANUAL) 3 % (1-6); LYMPHOCYTES % (MANUAL) 22 % (22-44); MONOCYTES % (MANUAL) 8 % (2-9); SEGMENTED NEUTROPHILS % 67 % (40-70)
[2018-11-02 12:25] VITALS: BP 132/74
[2018-11-02 16:18] VITALS: BP 129/82
[2018-11-02] MEDS: ATORVASTATIN CALCIUM 20 MG TABLET PO SCH (20:47)
[2018-11-02] MEDS: BENZTROPINE MESYLATE 2 MG TABLET PO SCH (20:47)
[2018-11-02] MEDS: ZOLPIDEM TARTRATE 10 MG TABLET PO PRN (21:11)
[2018-11-03 06:00] VITALS: BP 106/60
[2018-11-03] MEDS: LEVOTHYROXINE SODIUM 125 MCG TABLET PO SCH (06:22)
[2018-11-03 08:18] VITALS: BP 136/75
[2018-11-03] MEDS: OMEPRAZOLE 20 MG CAPSULE PO SCH (08:21)
[2018-11-03] MEDS: PROPRANOLOL HCL 10 MG TABLET PO SCH ×3 (08:21→16:15)
[2018-11-03] MEDS: DOCUSATE SODIUM 100 MG CAPSULE PO SCH (08:21)
[2018-11-03] MEDS: LITHIUM CARBONATE 300 MG CAPSULE PO SCH ×2 (08:21→16:15)
[2018-11-03 12:20] VITALS: BP 110/72
[2018-11-03 14:07] VITALS: BP 116/70
[2018-11-03] MEDS: ACETAMINOPHEN 325 MG TABLET PO PRN (14:07)
[2018-11-03 16:21] VITALS: BP 121/67
[2018-11-03] MEDS: ATORVASTATIN CALCIUM 20 MG TABLET PO SCH (20:27)
[2018-11-03] MEDS: BENZTROPINE MESYLATE 2 MG TABLET PO SCH (20:27)
[2018-11-03] MEDS: ZOLPIDEM TARTRATE 10 MG TABLET PO PRN (20:36)
[2018-11-04] MEDS: LEVOTHYROXINE SODIUM 125 MCG TABLET PO SCH (07:06)
[2018-11-04 07:28] LABS: BASOPHILS % (AUTO) 0.5 % (0.0-2.0); EOSINOPHILS % (AUTO) 2.5 % (1.0-6.0); HEMATOCRIT 32.3 % (36-46); HEMOGLOBIN 10.8 g/dL (12.0-16.0); LYMPHOCYTES # (AUTO) 1.8 K/uL (1.0-4.8); LYMPHOCYTES % (AUTO) 29.8 % (22.0-44.0); MEAN CORPUSCULAR HEMOGLOBIN 30.9 pg (26.0-34.0); MEAN CORPUSCULAR HGB CONC 33.5 G/dL (31.0-37.0); MEAN CORPUSCULAR VOLUME 92 fL (80-100); MONOCYTES # (AUTO) 0.6 K/uL (0.1-1.0); MONOCYTES % (AUTO) 9.4 % (2.0-9.0); NEUTROPHILS # (AUTO) 3.6 K/uL (1.8-7.7); NEUTROPHILS % (AUTO) 57.8 % (40.0-70.0); PLATELET COUNT (AUTO) 302 K/uL (150-450)
[2018-11-04 07:43] LABS: CALCIUM, TOTAL 9.8 mg/dL (8.8-10.5); CREATININE 1.51 mg/dL (0.60-1.30); MAGNESIUM 2.3 mg/dL (1.80-2.40); PHOSPHORUS 4.1 mg/dL (2.5-4.9); POTASSIUM 5.1 mmol/L (3.5-5.1)
[2018-11-04 08:04] LABS: APPEARANCE,URINE CLEAR (CLEAR); BILIRUBIN,URINE NEGATIVE (NEGATIVE); GLUCOSE, URINE (UA) NEGATIVE (NEGATIVE); KETONES,URINE NEGATIVE (NEGATIVE); LEUKOCYTE ESTERASE ,URINE NEGATIVE (NEGATIVE); NITRATE,URINE NEGATIVE (NEGATIVE); OCCULT BLOOD,URINE NEGATIVE (NEGATIVE); PROTEIN,URINE NEGATIVE (NEGATIVE); UROBILINOGEN,URINE 0.2 mg/dL (<=1.0)
[2018-11-04 08:07] VITALS: BP 129/73
[2018-11-04] MEDS: LITHIUM CARBONATE 300 MG CAPSULE PO SCH ×2 (08:41→16:20)
[2018-11-04] MEDS: DOCUSATE SODIUM 100 MG CAPSULE PO SCH (08:41)
[2018-11-04] MEDS: PROPRANOLOL HCL 10 MG TABLET PO SCH ×3 (08:41→16:20)
[2018-11-04] MEDS: OMEPRAZOLE 20 MG CAPSULE PO SCH (08:41)
[2018-11-04] MEDS: ACETAMINOPHEN 325 MG TABLET PO PRN (08:55)
[2018-11-04 13:05] VITALS: BP 116/78
[2018-11-04 16:40] VITALS: BP 114/73
[2018-11-04] MEDS: BENZTROPINE MESYLATE 2 MG TABLET PO SCH (20:34)
[2018-11-04] MEDS: ZOLPIDEM TARTRATE 10 MG TABLET PO PRN (20:34)
[2018-11-04] MEDS: ATORVASTATIN CALCIUM 20 MG TABLET PO SCH (20:34)
[2018-11-05 04:15] VITALS: BP 126/74
[2018-11-05] MEDS: LEVOTHYROXINE SODIUM 125 MCG TABLET PO SCH (06:59)
[2018-11-05] MEDS: LITHIUM CARBONATE 300 MG CAPSULE PO SCH ×2 (08:08→16:12)
[2018-11-05] MEDS: DOCUSATE SODIUM 100 MG CAPSULE PO SCH (08:08)
[2018-11-05] MEDS: OMEPRAZOLE 20 MG CAPSULE PO SCH (08:09)
[2018-11-05] MEDS: PROPRANOLOL HCL 10 MG TABLET PO SCH ×3 (08:09→16:12)
[2018-11-05 08:18] VITALS: BP 131/73
[2018-11-05 12:10] VITALS: BP 132/80
[2018-11-05 16:34] VITALS: BP 132/64
[2018-11-05] MEDS: BENZTROPINE MESYLATE 2 MG TABLET PO SCH (20:33)
[2018-11-05] MEDS: ATORVASTATIN CALCIUM 20 MG TABLET PO SCH (20:33)
[2018-11-05] MEDS: ZOLPIDEM TARTRATE 10 MG TABLET PO PRN (20:55)
[2018-11-06 01:14] VITALS: BP 126/70
[2018-11-06] MEDS: LEVOTHYROXINE SODIUM 125 MCG TABLET PO SCH (07:07)
[2018-11-06 08:32] VITALS: BP 100/74
[2018-11-06] MEDS: LITHIUM CARBONATE 300 MG CAPSULE PO SCH ×2 (09:16→16:24)
[2018-11-06] MEDS: DOCUSATE SODIUM 100 MG CAPSULE PO SCH (09:16)
[2018-11-06] MEDS: OMEPRAZOLE 20 MG CAPSULE PO SCH (09:16)
[2018-11-06] MEDS: PROPRANOLOL HCL 10 MG TABLET PO SCH ×3 (09:20→16:23)
[2018-11-06 10:58] VITALS: BP 125/75
[2018-11-06] MEDS: ACETAMINOPHEN 325 MG TABLET PO PRN (10:58)
[2018-11-06 16:27] VITALS: BP 141/84
[2018-11-06] MEDS: RisperiDONE MICROSPHERES 37.5 MG/2 ML SYRINGE IM SCH (17:04)
[2018-11-06] MEDS: BENZTROPINE MESYLATE 2 MG TABLET PO SCH (20:26)
[2018-11-06] MEDS: ATORVASTATIN CALCIUM 20 MG TABLET PO SCH (20:27)
[2018-11-06] MEDS: ZOLPIDEM TARTRATE 10 MG TABLET PO PRN (20:52)
[2018-11-07 02:10] VITALS: BP 127/75
[2018-11-07] MEDS: LEVOTHYROXINE SODIUM 125 MCG TABLET PO SCH (06:45)
[2018-11-07 08:26] VITALS: BP 136/70
[2018-11-07] MEDS: OMEPRAZOLE 20 MG CAPSULE PO SCH (09:39)
[2018-11-07] MEDS: LITHIUM CARBONATE 300 MG CAPSULE PO SCH ×2 (09:39→16:38)
[2018-11-07] MEDS: PROPRANOLOL HCL 10 MG TABLET PO SCH ×3 (09:39→16:38)
[2018-11-07] MEDS: DOCUSATE SODIUM 100 MG CAPSULE PO SCH (09:39)
[2018-11-07 10:00] VITALS: BP 117/66
[2018-11-07] MEDS: ACETAMINOPHEN 325 MG TABLET PO PRN (10:08)
[2018-11-07 16:16] VITALS: BP 113/69
[2018-11-07] MEDS: ATORVASTATIN CALCIUM 20 MG TABLET PO SCH (21:08)
[2018-11-07] MEDS: BENZTROPINE MESYLATE 2 MG TABLET PO SCH (21:09)
[2018-11-07] MEDS: ZOLPIDEM TARTRATE 10 MG TABLET PO PRN (21:09)
[2018-11-08 00:12] VITALS: BP 119/72
[2018-11-08] MEDS: LEVOTHYROXINE SODIUM 125 MCG TABLET PO SCH (07:15)
[2018-11-08 08:14] VITALS: BP 110/85
[2018-11-08] MEDS: DOCUSATE SODIUM 100 MG CAPSULE PO SCH (08:48)
[2018-11-08] MEDS: LITHIUM CARBONATE 300 MG CAPSULE PO SCH ×2 (08:48→17:06)
[2018-11-08] MEDS: OMEPRAZOLE 20 MG CAPSULE PO SCH (08:48)
[2018-11-08] MEDS: PROPRANOLOL HCL 10 MG TABLET PO SCH ×3 (08:48→17:06)
[2018-11-08 12:10] VITALS: BP 132/84
[2018-11-08 16:17] VITALS: BP 130/74
[2018-11-08] MEDS: ACETAMINOPHEN 325 MG TABLET PO PRN (17:26)
[2018-11-08] MEDS: BENZTROPINE MESYLATE 2 MG TABLET PO SCH (20:27)
[2018-11-08] MEDS: ATORVASTATIN CALCIUM 20 MG TABLET PO SCH (20:27)
[2018-11-08] MEDS: ZOLPIDEM TARTRATE 10 MG TABLET PO PRN (20:35)
[2018-11-09 04:48] VITALS: BP 117/80
[2018-11-09] MEDS: LEVOTHYROXINE SODIUM 125 MCG TABLET PO SCH (06:41)
[2018-11-09 08:24] VITALS: BP 140/93
[2018-11-09] MEDS: DOCUSATE SODIUM 100 MG CAPSULE PO SCH (08:34)
[2018-11-09] MEDS: PROPRANOLOL HCL 10 MG TABLET PO SCH ×3 (08:34→16:33)
[2018-11-09] MEDS: LITHIUM CARBONATE 300 MG CAPSULE PO SCH ×2 (08:34→16:33)
[2018-11-09] MEDS: OMEPRAZOLE 20 MG CAPSULE PO SCH (08:34)
[2018-11-09] MEDS: ACETAMINOPHEN 325 MG TABLET PO PRN ×2 (08:47→16:49)
[2018-11-09 12:35] VITALS: BP 121/74
[2018-11-09 16:43] VITALS: BP 139/78
[2018-11-09] MEDS: BENZTROPINE MESYLATE 2 MG TABLET PO SCH (20:46)
[2018-11-09] MEDS: ATORVASTATIN CALCIUM 20 MG TABLET PO SCH (20:46)
[2018-11-09] MEDS: ZOLPIDEM TARTRATE 10 MG TABLET PO PRN (20:46)
[2018-11-10 00:10] VITALS: BP 111/69
[2018-11-10] MEDS: LEVOTHYROXINE SODIUM 125 MCG TABLET PO SCH (06:53)
[2018-11-10 08:20] VITALS: BP 110/69
[2018-11-10] MEDS: DOCUSATE SODIUM 100 MG CAPSULE PO SCH (08:29)
[2018-11-10] MEDS: OMEPRAZOLE 20 MG CAPSULE PO SCH (08:29)
[2018-11-10] MEDS: LITHIUM CARBONATE 300 MG CAPSULE PO SCH ×2 (08:29→16:55)
[2018-11-10] MEDS: PROPRANOLOL HCL 10 MG TABLET PO SCH ×3 (08:29→16:55)
[2018-11-10] MEDS: ACETAMINOPHEN 325 MG TABLET PO PRN ×2 (09:04→14:30)
[2018-11-10 12:20] VITALS: BP 136/77
[2018-11-10 14:30] VITALS: BP 114/76
[2018-11-10 16:17] VITALS: BP 111/74
[2018-11-10] MEDS: ZOLPIDEM TARTRATE 10 MG TABLET PO PRN (20:22)
[2018-11-10] MEDS: ATORVASTATIN CALCIUM 20 MG TABLET PO SCH (20:22)
[2018-11-10] MEDS: BENZTROPINE MESYLATE 2 MG TABLET PO SCH (20:22)
[2018-11-11 06:31] VITALS: BP 120/74
[2018-11-11] MEDS: LEVOTHYROXINE SODIUM 125 MCG TABLET PO SCH (06:49)
[2018-11-11] MEDS: OMEPRAZOLE 20 MG CAPSULE PO SCH (08:20)
[2018-11-11] MEDS: DOCUSATE SODIUM 100 MG CAPSULE PO SCH (08:20)
[2018-11-11] MEDS: LITHIUM CARBONATE 300 MG CAPSULE PO SCH ×2 (08:20→16:05)
[2018-11-11] MEDS: PROPRANOLOL HCL 10 MG TABLET PO SCH ×3 (08:20→16:04)
[2018-11-11 08:25] VITALS: BP 117/74
[2018-11-11] MEDS: ACETAMINOPHEN 325 MG TABLET PO PRN ×2 (08:32→16:05)
[2018-11-11 12:25] VITALS: BP 132/77
[2018-11-11 16:05] VITALS: BP 136/76
[2018-11-11] MEDS: ATORVASTATIN CALCIUM 20 MG TABLET PO SCH (20:16)
[2018-11-11] MEDS: BENZTROPINE MESYLATE 2 MG TABLET PO SCH (20:16)
[2018-11-11] MEDS: ZOLPIDEM TARTRATE 10 MG TABLET PO PRN (20:33)
[2018-11-12 06:01] VITALS: BP 106/66
[2018-11-12] MEDS: LEVOTHYROXINE SODIUM 125 MCG TABLET PO SCH (06:18)
[2018-11-12 08:09] VITALS: BP 124/75
[2018-11-12] MEDS: PROPRANOLOL HCL 10 MG TABLET PO SCH ×3 (08:23→16:15)
[2018-11-12] MEDS: DOCUSATE SODIUM 100 MG CAPSULE PO SCH (08:23)
[2018-11-12] MEDS: LITHIUM CARBONATE 300 MG CAPSULE PO SCH ×2 (08:23→16:15)
[2018-11-12] MEDS: OMEPRAZOLE 20 MG CAPSULE PO SCH (08:23)
[2018-11-12] MEDS: ACETAMINOPHEN 325 MG TABLET PO PRN ×2 (08:45→16:15)
[2018-11-12 12:19] VITALS: BP 116/60
[2018-11-12 16:15] VITALS: BP 135/71
[2018-11-12] MEDS: BENZTROPINE MESYLATE 2 MG TABLET PO SCH (20:50)
[2018-11-12] MEDS: ZOLPIDEM TARTRATE 10 MG TABLET PO PRN (20:50)
[2018-11-12] MEDS: ATORVASTATIN CALCIUM 20 MG TABLET PO SCH (20:50)
[2018-11-13 02:40] VITALS: BP 136/67
[2018-11-13] MEDS: LEVOTHYROXINE SODIUM 125 MCG TABLET PO SCH (07:14)
[2018-11-13 08:00] VITALS: BP 109/71
[2018-11-13] MEDS: PROPRANOLOL HCL 10 MG TABLET PO SCH ×3 (08:50→16:39)
[2018-11-13] MEDS: DOCUSATE SODIUM 100 MG CAPSULE PO SCH (08:51)
[2018-11-13] MEDS: LITHIUM CARBONATE 300 MG CAPSULE PO SCH ×2 (08:51→16:39)
[2018-11-13] MEDS: OMEPRAZOLE 20 MG CAPSULE PO SCH (08:51)
[2018-11-13 10:06] VITALS: BP 111/77
[2018-11-13] MEDS: ACETAMINOPHEN 325 MG TABLET PO PRN ×3 (10:07→20:53)
[2018-11-13 16:00] VITALS: BP 124/83
[2018-11-13] MEDS: ATORVASTATIN CALCIUM 20 MG TABLET PO SCH (20:41)
[2018-11-13] MEDS: BENZTROPINE MESYLATE 2 MG TABLET PO SCH (20:41)
[2018-11-13] MEDS: ZOLPIDEM TARTRATE 10 MG TABLET PO PRN (20:53)
[2018-11-14 01:27] VITALS: BP 144/78
[2018-11-14] MEDS: LEVOTHYROXINE SODIUM 125 MCG TABLET PO SCH (06:49)
[2018-11-14] MEDS: PROPRANOLOL HCL 10 MG TABLET PO SCH ×2 (08:15→12:21)
[2018-11-14] MEDS: DOCUSATE SODIUM 100 MG CAPSULE PO SCH (08:15)
[2018-11-14] MEDS: OMEPRAZOLE 20 MG CAPSULE PO SCH (08:15)
[2018-11-14] MEDS: LITHIUM CARBONATE 300 MG CAPSULE PO SCH (08:15)
[2018-11-14 08:19] VITALS: BP 128/74
[2018-11-14] MEDS: ACETAMINOPHEN 325 MG TABLET PO PRN ×2 (08:19→12:55)
[2018-11-14] MEDS ORDERED: DSS100 PO ×2 (08:31→12:41)
[2018-11-14 12:20] VITALS: BP 128/72
== END 2018-11-14 15:30 | disposition home or self-care (01) | DRG 885 ==
LOC: B2X 12:42
PROVIDERS: ADMIT Psychiatry & Neurology Psychiatry; ATTEND Psychiatry & Neurology Psychiatry
DX: F25.9 Schizoaffective disorder, unspecified (principal); N18.3 Chronic kidney disease, stage 3 (moderate); E03.9 Hypothyroidism, unspecified; D72.829 Elevated white blood cell count, unspecified; G40.909 Epilepsy, unspecified, not intractable, without status epilepticus; I12.9 Hypertensive chronic kidney disease with stage 1 through stage 4 chronic kidney disease, or unspecified chronic kidney disease; K21.9 Gastro-esophageal reflux disease without esophagitis; K59.00 Constipation, unspecified
CPT/HCPCS: 80307; 83036; 83735; 84100; 84439; 84443; 85007; 85032; 87081; G0482; J1200; J1630; J2060; J2794

== ENCOUNTER 2019-08-22 14:54 | Inpatient (IN) | payer MEDICARE, MEDICAID ==
[~2019-08-22] VITALS: Ht 152.4 cm; Wt 58.1 kg
[~2019-08-22 14:54] MED LIST changes: +ATOR20TA86 PO
[2019-08-22] MEDS ORDERED: HALOPERIDOL 5 MG TABLET PO PRN (15:45)
[2019-08-22 16:30] VITALS: BP 113/75
[2019-08-23] MEDS ORDERED: PETROLATUM,WHITE 28 GM JELLY TP PRN (06:00)
[2019-08-23] MEDS ORDERED: ONDANSETRON HCL 4 MG TABLET PO PRN (06:00)
[2019-08-23] MEDS ORDERED: IBUPROFEN 600 MG TABLET PO PRN (06:00)
[2019-08-23] MEDS ORDERED: ACETAMINOPHEN 325 MG TABLET PO PRN (06:00)
[2019-08-23] MEDS ORDERED: BACITRACIN 28.4 GM OINTMENT TP PRN (06:00)
[2019-08-23] MEDS ORDERED: ALBUTEROL SULFATE HFA 90 MCG/PUFF 8 GM INHALER IH PRN (06:00)
[2019-08-23] MEDS ORDERED: CloNIDine HCL 0.1 MG TABLET PO PRN (06:00)
[2019-08-23] MEDS ORDERED: MAGNESIUM HYDROXIDE SUSPENSION 30 ML UDCUP PO PRN (06:00)
[2019-08-23] MEDS ORDERED: BENZOCAINE/MENTHOL LOZENGE MM PRN (06:00)
[2019-08-23] MEDS ORDERED: MAG HYDROX/AL HYDROX/SIMETH ES 30 ML SUSPENSION UDCUP PO PRN (06:00)
[2019-08-23] MEDS ORDERED: OMEPRAZOLE 20 MG CAPSULE PO PRN (06:00)
[2019-08-23] MEDS ORDERED: DOCUSATE SODIUM 100 MG CAPSULE PO PRN (06:00)
[2019-08-23] MEDS ORDERED: LOPERAMIDE HCL 2 MG CAPSULE PO PRN (06:00)
[2019-08-23] MEDS: LEVOTHYROXINE SODIUM 125 MCG TABLET PO SCH (06:44)
[2019-08-23 06:55] VITALS: BP 153/98
[2019-08-23 07:58] LABS: BASOPHILS % (AUTO) 0.6 % (0.0-2.0); EOSINOPHILS % (AUTO) 2.5 % (1.0-6.0); HEMOGLOBIN 10.6 g/dL (12.0-16.0); LYMPHOCYTES # (AUTO) 2.4 K/uL (1.0-4.8); LYMPHOCYTES % (AUTO) 29.6 % (22.0-44.0); MEAN CORPUSCULAR HEMOGLOBIN 31.9 pg (26.0-34.0); MEAN CORPUSCULAR HGB CONC 33.1 G/dL (31.0-37.0); MEAN CORPUSCULAR VOLUME 97 fL (80-100); MONOCYTES # (AUTO) 0.6 K/uL (0.1-1.0); MONOCYTES % (AUTO) 7.5 % (2.0-9.0); NEUTROPHILS # (AUTO) 4.9 K/uL (1.8-7.7); NEUTROPHILS % (AUTO) 59.8 % (40.0-70.0); PLATELET COUNT (AUTO) 297 K/uL (150-450); RED BLOOD CELL COUNT(AUTO) 3.31 MIL/uL (4.00-5.20); RED CELL DISTRIBUTION WIDTH 15.4 % (11.5-14.5)
[2019-08-23 08:20] LABS: ALBUMIN 3.5 g/dL (3.4-5.0); BILIRUBIN,TOTAL 0.3 mg/dL (0.1-1.0); CALCIUM, TOTAL 9.6 mg/dL (8.8-10.5); CREATININE 1.37 mg/dL (0.60-1.30); FREE T4 (FREE THYROXINE) 1.08 ng/dL (0.76-1.46); POTASSIUM 4.8 mmol/L (3.5-5.1); THYROID STIMULATING HORMONE 13.68 uIU/mL (0.36-3.74); TOTAL PROTEIN, SERUM 6.5 g/dL (6.4-8.2)
[2019-08-23 08:24] LABS: HEMOGLOBIN A1C 5.7 % (3.8-5.6)
[2019-08-23 08:48] VITALS: BP 124/82
[2019-08-23] MEDS ORDERED: OMEPRAZOLE 20 MG CAPSULE PO SCH (09:00)
[2019-08-23] MEDS: PROPRANOLOL HCL 10 MG TABLET PO SCH ×3 (09:04→17:44)
[2019-08-23] MEDS: DOCUSATE SODIUM 100 MG CAPSULE PO SCH (09:05)
[2019-08-23] MEDS: LITHIUM CARBONATE 300 MG CAPSULE PO SCH ×2 (09:06→17:44)
[2019-08-23] MEDS: LORazepam 2 MG TABLET PO PRN (09:46)
[2019-08-23 17:44] VITALS: BP 143/81
[2019-08-23] MEDS: BENZTROPINE MESYLATE 2 MG TABLET PO SCH (20:38)
[2019-08-23] MEDS: ATORVASTATIN CALCIUM 20 MG TABLET PO SCH (20:38)
[2019-08-23] MEDS: ZOLPIDEM TARTRATE 10 MG TABLET PO PRN (22:44)
[2019-08-24 00:45] VITALS: BP 125/72
[2019-08-24] MEDS: LORazepam 2 MG TABLET PO PRN ×2 (00:59→21:19)
[2019-08-24] MEDS: LEVOTHYROXINE SODIUM 125 MCG TABLET PO SCH (06:26)
[2019-08-24 08:20] VITALS: BP 153/77
[2019-08-24] MEDS: PROPRANOLOL HCL 10 MG TABLET PO SCH ×3 (08:48→16:09)
[2019-08-24] MEDS: LITHIUM CARBONATE 300 MG CAPSULE PO SCH ×2 (08:49→16:09)
[2019-08-24] MEDS: DOCUSATE SODIUM 100 MG CAPSULE PO SCH (08:49)
[2019-08-24] MEDS ORDERED: ATORVASTATIN CALCIUM 20 MG TABLET PO SCH (09:00)
[2019-08-24 17:17] VITALS: BP 127/80
[2019-08-24] MEDS: BENZTROPINE MESYLATE 2 MG TABLET PO SCH (20:34)
[2019-08-24] MEDS: ATORVASTATIN CALCIUM 20 MG TABLET PO SCH (20:34)
[2019-08-25 00:49] VITALS: BP 125/72
[2019-08-25] MEDS: ZOLPIDEM TARTRATE 10 MG TABLET PO PRN ×2 (02:42→21:50)
[2019-08-25] MEDS: LEVOTHYROXINE SODIUM 125 MCG TABLET PO SCH (06:29)
[2019-08-25 08:24] VITALS: BP 133/80
[2019-08-25] MEDS: PROPRANOLOL HCL 10 MG TABLET PO SCH ×3 (08:50→18:15)
[2019-08-25] MEDS: LITHIUM CARBONATE 300 MG CAPSULE PO SCH ×2 (08:50→18:15)
[2019-08-25] MEDS: DOCUSATE SODIUM 100 MG CAPSULE PO SCH (08:50)
[2019-08-25] MEDS: LORazepam 2 MG TABLET PO PRN (09:23)
[2019-08-25 16:27] VITALS: BP 134/83
[2019-08-25] MEDS: BENZTROPINE MESYLATE 2 MG TABLET PO SCH (21:50)
[2019-08-25] MEDS: ATORVASTATIN CALCIUM 20 MG TABLET PO SCH (21:50)
[2019-08-26 02:37] VITALS: BP 128/82
[2019-08-26 03:46] VITALS: BP 134/90
[2019-08-26] MEDS: LORazepam 2 MG TABLET PO PRN ×2 (03:54→21:42)
[2019-08-26] MEDS: LEVOTHYROXINE SODIUM 125 MCG TABLET PO SCH (06:48)
[2019-08-26 08:00] VITALS: BP 112/84
[2019-08-26] MEDS: LITHIUM CARBONATE 300 MG CAPSULE PO SCH ×2 (10:06→16:42)
[2019-08-26] MEDS: DOCUSATE SODIUM 100 MG CAPSULE PO SCH (10:06)
[2019-08-26] MEDS: PROPRANOLOL HCL 10 MG TABLET PO SCH ×3 (10:06→16:42)
[2019-08-26 16:21] VITALS: BP 110/65
[2019-08-26] MEDS: ATORVASTATIN CALCIUM 20 MG TABLET PO SCH (21:27)
[2019-08-26] MEDS: BENZTROPINE MESYLATE 2 MG TABLET PO SCH (21:27)
[2019-08-27 01:53] VITALS: BP 133/82
[2019-08-27] MEDS: LEVOTHYROXINE SODIUM 125 MCG TABLET PO SCH (06:45)
[2019-08-27 09:03] VITALS: BP 138/71
[2019-08-27] MEDS: DOCUSATE SODIUM 100 MG CAPSULE PO SCH (09:10)
[2019-08-27] MEDS: LITHIUM CARBONATE 300 MG CAPSULE PO SCH ×2 (09:10→16:43)
[2019-08-27] MEDS: PROPRANOLOL HCL 10 MG TABLET PO SCH ×3 (10:12→16:43)
[2019-08-27 16:12] VITALS: BP 141/90
[2019-08-27] MEDS: LORazepam 2 MG TABLET PO PRN (18:30)
[2019-08-27] MEDS: ATORVASTATIN CALCIUM 20 MG TABLET PO SCH (20:38)
[2019-08-27] MEDS: BENZTROPINE MESYLATE 2 MG TABLET PO SCH (20:38)
[2019-08-28 01:50] VITALS: BP 141/94
[2019-08-28] MEDS: LORazepam 2 MG TABLET PO PRN (01:52)
[2019-08-28] MEDS: LEVOTHYROXINE SODIUM 125 MCG TABLET PO SCH (06:18)
[2019-08-28 08:17] VITALS: BP 140/90
[2019-08-28] MEDS: LITHIUM CARBONATE 300 MG CAPSULE PO SCH ×2 (09:07→16:16)
[2019-08-28] MEDS: PROPRANOLOL HCL 10 MG TABLET PO SCH ×3 (09:07→16:16)
[2019-08-28] MEDS: DOCUSATE SODIUM 100 MG CAPSULE PO SCH (09:07)
[2019-08-28 16:25] VITALS: BP 128/79
[2019-08-28] MEDS: ATORVASTATIN CALCIUM 20 MG TABLET PO SCH (20:16)
[2019-08-28] MEDS: BENZTROPINE MESYLATE 2 MG TABLET PO SCH (20:16)
[2019-08-29 04:28] VITALS: BP 138/90
[2019-08-29] MEDS: LORazepam 2 MG TABLET PO PRN (04:35)
[2019-08-29] MEDS: LEVOTHYROXINE SODIUM 125 MCG TABLET PO SCH (06:19)
[2019-08-29 08:45] VITALS: BP 161/75
[2019-08-29] MEDS: LITHIUM CARBONATE 300 MG CAPSULE PO SCH ×2 (08:48→16:40)
[2019-08-29] MEDS: DOCUSATE SODIUM 100 MG CAPSULE PO SCH (08:48)
[2019-08-29] MEDS: PROPRANOLOL HCL 10 MG TABLET PO SCH ×3 (08:48→16:40)
[2019-08-29 16:17] VITALS: BP 141/70
[2019-08-29] MEDS: BENZTROPINE MESYLATE 2 MG TABLET PO SCH (20:37)
[2019-08-29] MEDS: ATORVASTATIN CALCIUM 20 MG TABLET PO SCH (20:37)
[2019-08-30 00:47] VITALS: BP 141/73
[2019-08-30] MEDS: LEVOTHYROXINE SODIUM 125 MCG TABLET PO SCH (06:27)
[2019-08-30] MEDS: PROPRANOLOL HCL 10 MG TABLET PO SCH ×3 (08:48→16:36)
[2019-08-30] MEDS: LITHIUM CARBONATE 300 MG CAPSULE PO SCH ×2 (08:48→16:36)
[2019-08-30] MEDS: DOCUSATE SODIUM 100 MG CAPSULE PO SCH (08:48)
[2019-08-30] MEDS: MULTIVITAMINS WITH IRON TABLET PO SCH (08:48)
[2019-08-30 08:51] VITALS: BP 142/83
[2019-08-30 16:27] VITALS: BP 143/87
[2019-08-30] MEDS: LORazepam 2 MG TABLET PO PRN (18:59)
[2019-08-30] MEDS: ATORVASTATIN CALCIUM 20 MG TABLET PO SCH (20:38)
[2019-08-30] MEDS: BENZTROPINE MESYLATE 2 MG TABLET PO SCH (20:38)
[2019-08-31] MEDS: LORazepam 2 MG TABLET PO PRN (00:13)
[2019-08-31] MEDS: ZOLPIDEM TARTRATE 10 MG TABLET PO PRN (00:13)
[2019-08-31 00:36] VITALS: BP 140/75
[2019-08-31] MEDS: LEVOTHYROXINE SODIUM 125 MCG TABLET PO SCH (06:33)
[2019-08-31] MEDS: DOCUSATE SODIUM 100 MG CAPSULE PO SCH (08:25)
[2019-08-31] MEDS: LITHIUM CARBONATE 300 MG CAPSULE PO SCH ×2 (08:25→16:42)
[2019-08-31] MEDS: PROPRANOLOL HCL 10 MG TABLET PO SCH ×3 (08:25→16:42)
[2019-08-31] MEDS: MULTIVITAMINS WITH IRON TABLET PO SCH (08:25)
[2019-08-31 08:45] VITALS: BP 135/87
[2019-08-31 17:33] VITALS: BP 138/82
[2019-08-31] MEDS: ATORVASTATIN CALCIUM 20 MG TABLET PO SCH (20:45)
[2019-08-31] MEDS: BENZTROPINE MESYLATE 2 MG TABLET PO SCH (20:46)
[2019-09-01 00:23] VITALS: BP 127/85
[2019-09-01] MEDS: ZOLPIDEM TARTRATE 10 MG TABLET PO PRN ×2 (00:25→23:46)
[2019-09-01] MEDS: LORazepam 2 MG TABLET PO PRN (00:25)
[2019-09-01 00:49] VITALS: BP 127/104
[2019-09-01] MEDS: LEVOTHYROXINE SODIUM 125 MCG TABLET PO SCH (06:05)
[2019-09-01 08:11] VITALS: BP 124/61
[2019-09-01] MEDS: DOCUSATE SODIUM 100 MG CAPSULE PO SCH (08:56)
[2019-09-01] MEDS: MULTIVITAMINS WITH IRON TABLET PO SCH (08:56)
[2019-09-01] MEDS: LITHIUM CARBONATE 300 MG CAPSULE PO SCH ×2 (08:56→16:36)
[2019-09-01] MEDS: PROPRANOLOL HCL 10 MG TABLET PO SCH ×3 (08:56→16:37)
[2019-09-01 16:06] VITALS: BP 138/97
[2019-09-01] MEDS: ATORVASTATIN CALCIUM 20 MG TABLET PO SCH (20:41)
[2019-09-01] MEDS: BENZTROPINE MESYLATE 2 MG TABLET PO SCH (20:41)
[2019-09-02 00:15] VITALS: BP 136/86
[2019-09-02 03:00] VITALS: BP 130/85
[2019-09-02] MEDS: LORazepam 2 MG TABLET PO PRN (03:18)
[2019-09-02] MEDS: LEVOTHYROXINE SODIUM 125 MCG TABLET PO SCH (06:41)
[2019-09-02] MEDS: PROPRANOLOL HCL 10 MG TABLET PO SCH ×3 (09:51→16:40)
[2019-09-02] MEDS: LITHIUM CARBONATE 300 MG CAPSULE PO SCH ×2 (09:51→16:40)
[2019-09-02] MEDS: MULTIVITAMINS WITH IRON TABLET PO SCH (09:51)
[2019-09-02] MEDS: DOCUSATE SODIUM 100 MG CAPSULE PO SCH (09:51)
[2019-09-02 16:08] VITALS: BP 124/78
[2019-09-02] MEDS: ATORVASTATIN CALCIUM 20 MG TABLET PO SCH (20:31)
[2019-09-02] MEDS: BENZTROPINE MESYLATE 2 MG TABLET PO SCH (20:31)
[2019-09-03 01:52] VITALS: BP 108/62
[2019-09-03] MEDS: LEVOTHYROXINE SODIUM 125 MCG TABLET PO SCH (06:30)
[2019-09-03 08:07] VITALS: BP 135/89
[2019-09-03] MEDS: LITHIUM CARBONATE 300 MG CAPSULE PO SCH ×2 (10:12→16:57)
[2019-09-03] MEDS: DOCUSATE SODIUM 100 MG CAPSULE PO SCH (10:12)
[2019-09-03] MEDS: PROPRANOLOL HCL 10 MG TABLET PO SCH ×3 (10:12→16:57)
[2019-09-03] MEDS: MULTIVITAMINS WITH IRON TABLET PO SCH (10:12)
[2019-09-03 16:26] VITALS: BP 140/84
[2019-09-03] MEDS: ATORVASTATIN CALCIUM 20 MG TABLET PO SCH (20:32)
[2019-09-03] MEDS: BENZTROPINE MESYLATE 2 MG TABLET PO SCH (20:32)
[2019-09-04 01:49] VITALS: BP 137/78
[2019-09-04] MEDS: ZOLPIDEM TARTRATE 10 MG TABLET PO PRN (01:50)
[2019-09-04] MEDS: LEVOTHYROXINE SODIUM 125 MCG TABLET PO SCH (06:28)
[2019-09-04 08:24] VITALS: BP 140/79
[2019-09-04] MEDS: LITHIUM CARBONATE 300 MG CAPSULE PO SCH ×2 (08:26→16:34)
[2019-09-04] MEDS: MULTIVITAMINS WITH IRON TABLET PO SCH (08:26)
[2019-09-04] MEDS: DOCUSATE SODIUM 100 MG CAPSULE PO SCH (08:26)
[2019-09-04] MEDS: PROPRANOLOL HCL 10 MG TABLET PO SCH ×3 (08:26→16:34)
[2019-09-04] MEDS: LORazepam 2 MG TABLET PO PRN ×2 (13:02→18:17)
[2019-09-04 16:15] VITALS: BP 121/73
[2019-09-04] MEDS: BENZTROPINE MESYLATE 2 MG TABLET PO SCH (20:37)
[2019-09-04] MEDS: ATORVASTATIN CALCIUM 20 MG TABLET PO SCH (20:37)
[2019-09-05 01:07] VITALS: BP 149/67
[2019-09-05] MEDS: LEVOTHYROXINE SODIUM 125 MCG TABLET PO SCH (06:50)
[2019-09-05 08:27] VITALS: BP 131/84
[2019-09-05] MEDS: LORazepam 2 MG TABLET PO PRN (08:43)
[2019-09-05] MEDS: MULTIVITAMINS WITH IRON TABLET PO SCH (09:00)
[2019-09-05] MEDS: PROPRANOLOL HCL 10 MG TABLET PO SCH ×3 (09:50→16:36)
[2019-09-05] MEDS: LITHIUM CARBONATE 300 MG CAPSULE PO SCH ×2 (09:50→16:36)
[2019-09-05] MEDS: DOCUSATE SODIUM 100 MG CAPSULE PO SCH (09:51)
[2019-09-05 16:33] VITALS: BP 126/84
[2019-09-05] MEDS: BENZTROPINE MESYLATE 2 MG TABLET PO SCH (20:33)
[2019-09-05] MEDS: ATORVASTATIN CALCIUM 20 MG TABLET PO SCH (20:33)
[2019-09-06 00:33] VITALS: BP 125/107
[2019-09-06 00:55] VITALS: BP 146/105
[2019-09-06] MEDS: LEVOTHYROXINE SODIUM 125 MCG TABLET PO SCH (07:02)
[2019-09-06 07:15] VITALS: BP 135/100
[2019-09-06] MEDS: LITHIUM CARBONATE 300 MG CAPSULE PO SCH ×2 (08:12→16:31)
[2019-09-06] MEDS: PROPRANOLOL HCL 10 MG TABLET PO SCH ×3 (08:12→16:32)
[2019-09-06] MEDS: MULTIVITAMINS WITH IRON TABLET PO SCH (08:12)
[2019-09-06] MEDS: DOCUSATE SODIUM 100 MG CAPSULE PO SCH (08:12)
[2019-09-06 08:13] VITALS: BP 120/88
[2019-09-06] MEDS ORDERED: RisperiDONE MICROSPHERES 37.5 MG/2 ML SYRINGE IM ONE (16:00)
[2019-09-06 16:15] VITALS: BP 112/79
[2019-09-06] MEDS: ATORVASTATIN CALCIUM 20 MG TABLET PO SCH (20:34)
[2019-09-06] MEDS: BENZTROPINE MESYLATE 2 MG TABLET PO SCH (20:34)
[2019-09-07 00:39] VITALS: BP 122/77
[2019-09-07] MEDS: LEVOTHYROXINE SODIUM 125 MCG TABLET PO SCH (07:16)
[2019-09-07 08:14] VITALS: BP 130/75
[2019-09-07] MEDS: MULTIVITAMINS WITH IRON TABLET PO SCH (09:23)
[2019-09-07] MEDS: PROPRANOLOL HCL 10 MG TABLET PO SCH ×3 (09:23→16:07)
[2019-09-07] MEDS: LITHIUM CARBONATE 300 MG CAPSULE PO SCH ×2 (09:23→16:07)
[2019-09-07] MEDS: DOCUSATE SODIUM 100 MG CAPSULE PO SCH (09:23)
[2019-09-07 16:27] VITALS: BP 136/72
[2019-09-07] MEDS: LORazepam 2 MG TABLET PO PRN (17:41)
[2019-09-07] MEDS: ATORVASTATIN CALCIUM 20 MG TABLET PO SCH (21:01)
[2019-09-07] MEDS: BENZTROPINE MESYLATE 2 MG TABLET PO SCH (21:01)
[2019-09-08 00:42] VITALS: BP 125/76
[2019-09-08] MEDS: LEVOTHYROXINE SODIUM 125 MCG TABLET PO SCH (06:46)
[2019-09-08 08:54] VITALS: BP 95/51
[2019-09-08 09:00] VITALS: BP 127/83
[2019-09-08] MEDS: MULTIVITAMINS WITH IRON TABLET PO SCH (09:11)
[2019-09-08] MEDS: DOCUSATE SODIUM 100 MG CAPSULE PO SCH (09:11)
[2019-09-08] MEDS: PROPRANOLOL HCL 10 MG TABLET PO SCH ×2 (09:11→12:57)
[2019-09-08] MEDS: LITHIUM CARBONATE 300 MG CAPSULE PO SCH (09:11)
== END 2019-09-08 13:20 | disposition home or self-care (01) | DRG 885 ==
LOC: B2X 16:20
PROVIDERS: ADMIT Psychiatry & Neurology Psychiatry; ATTEND Psychiatry & Neurology Psychiatry
DX: F25.9 Schizoaffective disorder, unspecified (principal); F41.9 Anxiety disorder, unspecified; K21.9 Gastro-esophageal reflux disease without esophagitis; R25.1 Tremor, unspecified; Z59.0 Homelessness
CPT/HCPCS: 83036; 84436; 84439; 84443; J2794

== ENCOUNTER 2020-01-23 16:01 | Inpatient (IN) | payer MEDICARE, MEDICAID ==
[~2020-01-23] VITALS: Ht 152.4 cm; Wt 51.1 kg
[~2020-01-23 16:01] MED LIST changes: +AMLO2.5T96 PO; -DSS100 PO; -LEVO100 PO; +LEVO125 PO; +MVITFE PO; -PROP10TA72 PO
[2020-01-23] MEDS ORDERED: BENZTROPINE MESYLATE 1 MG/ML 2 ML VIAL IM ONE (16:15)
[2020-01-23 16:40] LABS: BASOPHILS % (AUTO) 0.1 % (0.0-2.0); EOSINOPHILS % (AUTO) 0.9 % (1.0-6.0); HEMATOCRIT 36.1 % (36-46); LYMPHOCYTES # (AUTO) 1.8 K/uL (1.0-4.8); LYMPHOCYTES % (AUTO) 14.2 % (22.0-44.0); MEAN CORPUSCULAR HGB CONC 33.3 G/dL (31.0-37.0); MEAN CORPUSCULAR VOLUME 96 fL (80-100); MONOCYTES # (AUTO) 0.8 K/uL (0.1-1.0); MONOCYTES % (AUTO) 6.4 % (2.0-9.0); NEUTROPHILS # (AUTO) 9.8 K/uL (1.8-7.7); NEUTROPHILS % (AUTO) 78.4 % (40.0-70.0); PLATELET COUNT (AUTO) 255 K/uL (150-450); RED BLOOD CELL COUNT(AUTO) 3.77 MIL/uL (4.00-5.20); RED CELL DISTRIBUTION WIDTH 14.1 % (11.5-14.5)
[2020-01-23 16:50] LABS: ANION GAP 9 mmol/L (8-16); CALCIUM, TOTAL 10.4 mg/dL (8.8-10.5); CARBON DIOXIDE 23 mmol/L (22-29); CHLORIDE 106 mmol/L (98-107); CREATININE 1.84 mg/dL (0.60-1.30); GLOMERULAR FILTR. RATE CALC 28 mL/min (>60); GLUCOSE,RANDOM 115 mg/dL (70-110); POTASSIUM 3.7 mmol/L (3.5-5.1); SODIUM SERUM 138 mmol/L (136-145); UREA NITROGEN, BLOOD 12 mg/dL (7-18)
[2020-01-23 16:57] LABS: ALANINE AMINOTRANSFERASE 25 U/L (12-78); ALBUMIN 4.2 g/dL (3.4-5.0); ALKALINE PHOSPHATASE 123 U/L (46-116); ASPARTATE AMINOTRANSFERASE 14 U/L (15-37); BILIRUBIN,TOTAL 0.4 mg/dL (0.1-1.0); TOTAL PROTEIN, SERUM 8.2 g/dL (6.4-8.2)
[2020-01-23] MEDS ORDERED: LORazepam 1 MG TABLET PO PRN (21:30)
[2020-01-23] MEDS ORDERED: OLANZapine 5 MG RAPDIS TABLET PO PRN (21:30)
[2020-01-23] MEDS ORDERED: LORazepam 2 MG TABLET PO PRN (21:30)
[2020-01-24 01:41] VITALS: BP 137/94
[2020-01-24] MEDS ORDERED: -PHARMACY VACCINE NOTE- MISC ONE (02:45)
[2020-01-24] MEDS ORDERED: PNEUMOCOCCAL VACCINE POLYVALENT 0.5 ML VIAL [PPSV23] IM ONE (02:45)
[2020-01-24 06:32] LABS: CHOL/HDL RATIO 2.3 (3.9-5.7)
[2020-01-24] MEDS ORDERED: ONDANSETRON HCL 4 MG TABLET PO PRN (07:45)
[2020-01-24] MEDS ORDERED: ALBUTEROL SULFATE HFA 90 MCG/PUFF 8 GM INHALER IH PRN (07:45)
[2020-01-24] MEDS ORDERED: IBUPROFEN 600 MG TABLET PO PRN (07:45)
[2020-01-24] MEDS ORDERED: DOCUSATE SODIUM 100 MG CAPSULE PO PRN (07:45)
[2020-01-24] MEDS ORDERED: MAG HYDROX/AL HYDROX/SIMETH ES 30 ML SUSPENSION UDCUP PO PRN (07:45)
[2020-01-24] MEDS ORDERED: MAGNESIUM HYDROXIDE SUSPENSION 30 ML UDCUP PO PRN (07:45)
[2020-01-24] MEDS ORDERED: BACITRACIN 28.4 GM OINTMENT TP PRN (07:45)
[2020-01-24] MEDS ORDERED: PETROLATUM,WHITE 28 GM JELLY TP PRN (07:45)
[2020-01-24] MEDS ORDERED: ACETAMINOPHEN 325 MG TABLET PO PRN (07:45)
[2020-01-24] MEDS ORDERED: LOPERAMIDE HCL 2 MG CAPSULE PO PRN (07:45)
[2020-01-24] MEDS ORDERED: CloNIDine HCL 0.1 MG TABLET PO PRN (07:45)
[2020-01-24] MEDS ORDERED: OMEPRAZOLE 20 MG CAPSULE PO PRN (07:45)
[2020-01-24] MEDS ORDERED: BENZOCAINE/MENTHOL LOZENGE MM PRN (07:45)
[2020-01-24 08:00] VITALS: BP 118/81
[2020-01-24] MEDS: MULTIVITAMINS WITH IRON TABLET PO SCH (08:37)
[2020-01-24] MEDS: AmLODIPine BESYLATE 2.5 MG TABLET PO SCH (08:37)
[2020-01-24] MEDS: BENZTROPINE MESYLATE 1 MG TABLET PO SCH (16:18)
[2020-01-24] MEDS: LITHIUM CARBONATE 300 MG CAPSULE PO SCH (16:18)
[2020-01-24 16:48] VITALS: BP 109/64
[2020-01-24] MEDS: ATORVASTATIN CALCIUM 20 MG TABLET PO SCH (20:12)
[2020-01-25 06:38] LABS: CALCIUM, TOTAL 10.3 mg/dL (8.8-10.5); CREATININE 1.51 mg/dL (0.60-1.30); POTASSIUM 4.5 mmol/L (3.5-5.1)
[2020-01-25] MEDS: LEVOTHYROXINE SODIUM 125 MCG TABLET PO SCH (06:40)
[2020-01-25 08:00] VITALS: BP 117/72
[2020-01-25] MEDS: LITHIUM CARBONATE 300 MG CAPSULE PO SCH ×2 (08:49→20:15)
[2020-01-25] MEDS: BENZTROPINE MESYLATE 1 MG TABLET PO SCH ×2 (08:49→16:19)
[2020-01-25] MEDS: MULTIVITAMINS WITH IRON TABLET PO SCH (08:49)
[2020-01-25] MEDS: AmLODIPine BESYLATE 2.5 MG TABLET PO SCH (08:49)
[2020-01-25 09:43] LABS: GLUCOMETER DEV NAME(LOC) 3EX.; GLUCOSE,POINT OF CARE 105 MG/DL (70-110)
[2020-01-25 16:47] VITALS: BP 130/81
[2020-01-25] MEDS: ATORVASTATIN CALCIUM 20 MG TABLET PO SCH (20:15)
[2020-01-26] MEDS: LEVOTHYROXINE SODIUM 125 MCG TABLET PO SCH (06:48)
[2020-01-26 08:00] VITALS: BP 128/79
[2020-01-26] MEDS: BENZTROPINE MESYLATE 1 MG TABLET PO SCH ×2 (08:28→16:40)
[2020-01-26] MEDS: MULTIVITAMINS WITH IRON TABLET PO SCH (08:29)
[2020-01-26] MEDS: AmLODIPine BESYLATE 2.5 MG TABLET PO SCH (10:12)
[2020-01-26 16:08] VITALS: BP 119/75
[2020-01-26] MEDS: LITHIUM CARBONATE 300 MG CAPSULE PO SCH (20:07)
[2020-01-26] MEDS: ATORVASTATIN CALCIUM 20 MG TABLET PO SCH (20:07)
[2020-01-27] MEDS: LEVOTHYROXINE SODIUM 125 MCG TABLET PO SCH (07:16)
[2020-01-27 08:00] VITALS: BP 133/77
[2020-01-27] MEDS: MULTIVITAMINS WITH IRON TABLET PO SCH (08:36)
[2020-01-27] MEDS: AmLODIPine BESYLATE 2.5 MG TABLET PO SCH (08:36)
[2020-01-27] MEDS: BENZTROPINE MESYLATE 1 MG TABLET PO SCH ×2 (08:36→17:21)
[2020-01-27 16:30] VITALS: BP 124/74
[2020-01-27] MEDS: LITHIUM CARBONATE 300 MG CAPSULE PO SCH (20:40)
[2020-01-27] MEDS: ATORVASTATIN CALCIUM 20 MG TABLET PO SCH (20:40)
[2020-01-28 07:11] LABS: MAGNESIUM 2.1 mg/dL (1.80-2.40); PHOSPHORUS 4.3 mg/dL (2.5-4.9)
[2020-01-28] MEDS: LEVOTHYROXINE SODIUM 125 MCG TABLET PO SCH (07:11)
[2020-01-28 08:00] VITALS: BP 117/69
[2020-01-28] MEDS: MULTIVITAMINS WITH IRON TABLET PO SCH (09:08)
[2020-01-28] MEDS: BENZTROPINE MESYLATE 1 MG TABLET PO SCH ×2 (09:08→16:59)
[2020-01-28] MEDS: AmLODIPine BESYLATE 2.5 MG TABLET PO SCH (09:09)
[2020-01-28 17:02] VITALS: BP 119/74
[2020-01-28] MEDS: ATORVASTATIN CALCIUM 20 MG TABLET PO SCH (20:13)
[2020-01-28] MEDS: LITHIUM CARBONATE 300 MG CAPSULE PO SCH (20:13)
[2020-01-29] MEDS: LEVOTHYROXINE SODIUM 125 MCG TABLET PO SCH (06:32)
[2020-01-29 08:00] VITALS: BP 109/78
[2020-01-29] MEDS: AmLODIPine BESYLATE 2.5 MG TABLET PO SCH (08:43)
[2020-01-29] MEDS: BENZTROPINE MESYLATE 1 MG TABLET PO SCH ×2 (08:43→16:08)
[2020-01-29] MEDS: MULTIVITAMINS WITH IRON TABLET PO SCH (08:43)
[2020-01-29 16:00] VITALS: BP 109/74
[2020-01-29] MEDS: LITHIUM CARBONATE 300 MG CAPSULE PO SCH (20:17)
[2020-01-29] MEDS: ATORVASTATIN CALCIUM 20 MG TABLET PO SCH (20:17)
[2020-01-30] MEDS: LEVOTHYROXINE SODIUM 125 MCG TABLET PO SCH (06:46)
[2020-01-30 09:00] VITALS: BP 107/74
[2020-01-30] MEDS: BENZTROPINE MESYLATE 1 MG TABLET PO SCH ×2 (09:57→16:04)
[2020-01-30] MEDS: AmLODIPine BESYLATE 2.5 MG TABLET PO SCH (09:58)
[2020-01-30] MEDS: MULTIVITAMINS WITH IRON TABLET PO SCH (09:58)
[2020-01-30 16:00] VITALS: BP 95/54
[2020-01-30] MEDS: LITHIUM CARBONATE 300 MG CAPSULE PO SCH (20:16)
[2020-01-30] MEDS: ATORVASTATIN CALCIUM 20 MG TABLET PO SCH (20:16)
[2020-01-31 06:34] LABS: HEMATOCRIT 33.9 % (36-46); HEMOGLOBIN 11.7 g/dL (12.0-16.0); MEAN CORPUSCULAR HEMOGLOBIN 32.9 pg (26.0-34.0); MEAN CORPUSCULAR HGB CONC 34.6 G/dL (31.0-37.0); MEAN CORPUSCULAR VOLUME 95 fL (80-100); PLATELET COUNT (AUTO) 284 K/uL (150-450); RED BLOOD CELL COUNT(AUTO) 3.57 MIL/uL (4.00-5.20); RED CELL DISTRIBUTION WIDTH 13.2 % (11.5-14.5)
[2020-01-31] MEDS: LEVOTHYROXINE SODIUM 125 MCG TABLET PO SCH (06:34)
[2020-01-31 07:00] LABS: CALCIUM, TOTAL 9.7 mg/dL (8.8-10.5); CREATININE 1.59 mg/dL (0.60-1.30); MAGNESIUM 2.1 mg/dL (1.80-2.40); PHOSPHORUS 3.4 mg/dL (2.5-4.9); POTASSIUM 4.4 mmol/L (3.5-5.1)
[2020-01-31 07:32] LABS: BAND NEUTROPHILS % (MANUAL) 1 % (0-5); EOSINOPHILS % (MANUAL) 2 % (1-6); LYMPHOCYTES % (MANUAL) 35 % (22-44); MONOCYTES % (MANUAL) 1 % (2-9); SEGMENTED NEUTROPHILS % 61 % (40-70)
[2020-01-31 08:00] VITALS: BP 108/65
[2020-01-31] MEDS: AmLODIPine BESYLATE 2.5 MG TABLET PO SCH (08:01)
[2020-01-31] MEDS: MULTIVITAMINS WITH IRON TABLET PO SCH (08:01)
[2020-01-31] MEDS: BENZTROPINE MESYLATE 1 MG TABLET PO SCH ×2 (08:01→16:41)
[2020-01-31 16:19] VITALS: BP 119/76
[2020-01-31] MEDS: LITHIUM CARBONATE 300 MG CAPSULE PO SCH (20:03)
[2020-01-31] MEDS: ATORVASTATIN CALCIUM 20 MG TABLET PO SCH (20:03)
[2020-02-01] MEDS: LEVOTHYROXINE SODIUM 125 MCG TABLET PO SCH (06:31)
[2020-02-01] MEDS: BENZTROPINE MESYLATE 1 MG TABLET PO SCH ×2 (08:15→16:20)
[2020-02-01] MEDS: AmLODIPine BESYLATE 2.5 MG TABLET PO SCH (08:15)
[2020-02-01] MEDS: MULTIVITAMINS WITH IRON TABLET PO SCH (08:15)
[2020-02-01 16:40] VITALS: BP 114/74
[2020-02-01] MEDS: ATORVASTATIN CALCIUM 20 MG TABLET PO SCH (20:04)
[2020-02-01] MEDS: LITHIUM CARBONATE 300 MG CAPSULE PO SCH (20:04)
[2020-02-02] MEDS: LEVOTHYROXINE SODIUM 125 MCG TABLET PO SCH (07:00)
[2020-02-02] MEDS: BENZTROPINE MESYLATE 1 MG TABLET PO SCH ×2 (08:40→16:14)
[2020-02-02] MEDS: MULTIVITAMINS WITH MINERALS, THERAPEUTIC TABLET PO SCH (08:40)
[2020-02-02] MEDS: AmLODIPine BESYLATE 2.5 MG TABLET PO SCH (08:41)
[2020-02-02 09:40] VITALS: BP 91/64
[2020-02-02 16:00] VITALS: BP 98/61
[2020-02-02] MEDS: ATORVASTATIN CALCIUM 20 MG TABLET PO SCH (20:11)
[2020-02-02] MEDS: LITHIUM CARBONATE 300 MG CAPSULE PO SCH (20:11)
[2020-02-03] MEDS: LEVOTHYROXINE SODIUM 125 MCG TABLET PO SCH (06:20)
[2020-02-03 08:00] VITALS: BP 112/52
[2020-02-03] MEDS: BENZTROPINE MESYLATE 1 MG TABLET PO SCH ×2 (08:38→16:11)
[2020-02-03] MEDS: MULTIVITAMINS WITH MINERALS, THERAPEUTIC TABLET PO SCH (08:38)
[2020-02-03] MEDS: AmLODIPine BESYLATE 2.5 MG TABLET PO SCH (08:39)
[2020-02-03 16:47] VITALS: BP 99/62
[2020-02-03] MEDS: ATORVASTATIN CALCIUM 20 MG TABLET PO SCH (20:11)
[2020-02-03] MEDS: LITHIUM CARBONATE 300 MG CAPSULE PO SCH (20:12)
[2020-02-03] MEDS ORDERED: BENZ1TAB10 PO (21:46)
[2020-02-03] MEDS ORDERED: LITH300C3 PO (21:47)
[2020-02-04] MEDS: LEVOTHYROXINE SODIUM 125 MCG TABLET PO SCH (06:27)
[2020-02-04] MEDS: MULTIVITAMINS WITH MINERALS, THERAPEUTIC TABLET PO SCH (08:06)
[2020-02-04] MEDS: BENZTROPINE MESYLATE 1 MG TABLET PO SCH ×2 (08:06→16:59)
[2020-02-04] MEDS: AmLODIPine BESYLATE 2.5 MG TABLET PO SCH (08:06)
[2020-02-04] MEDS ORDERED: MULT-1239 PO (08:50)
[2020-02-04 09:23] VITALS: BP 108/63
[2020-02-06] MEDS ORDERED: RisperiDONE MICROSPHERES 37.5 MG/2 ML SYRINGE IM SCH (09:00)
== END 2020-02-04 18:45 | disposition home or self-care (01) | DRG 885 ==
LOC: EMS 16:01 → 3EX 21:32
PROVIDERS: ADMIT Psychiatry & Neurology Psychiatry; ATTEND Psychiatry & Neurology Psychiatry
DX: F31.9 Bipolar disorder, unspecified (principal); N18.4 Chronic kidney disease, stage 4 (severe); F20.9 Schizophrenia, unspecified; K21.9 Gastro-esophageal reflux disease without esophagitis; F41.9 Anxiety disorder, unspecified; E03.9 Hypothyroidism, unspecified; J43.9 Emphysema, unspecified; R73.03 Prediabetes; I12.9 Hypertensive chronic kidney disease with stage 1 through stage 4 chronic kidney disease, or unspecified chronic kidney disease; F17.210 Nicotine dependence, cigarettes, uncomplicated; M19.90 Unspecified osteoarthritis, unspecified site; K59.00 Constipation, unspecified; G47.00 Insomnia, unspecified; E78.5 Hyperlipidemia, unspecified; F19.10 Other psychoactive substance abuse, uncomplicated; R25.1 Tremor, unspecified; Z59.0 Homelessness; Z82.3 Family history of stroke
CPT/HCPCS: 70450; 83735; 84100; 85007; G0378; G0480; J0515

== ENCOUNTER 2020-07-05 08:20 | Inpatient (IN) | payer MEDICARE ==
[~2020-07-05] VITALS: Ht 154.9 cm; Wt 54.9 kg
[~2020-07-05 08:20] MED LIST changes: +BENZ1TAB10 PO; -BENZ2TAB10 PO; +MULT-1239 PO; -MVITFE PO; -OMEP20 PO
[2020-07-05 09:43] LABS: BASOPHILS % (AUTO) 0.4 % (0.0-2.0); EOSINOPHILS % (AUTO) 2.2 % (1.0-6.0); HEMOGLOBIN 12.9 g/dL (12.0-16.0); LYMPHOCYTES # (AUTO) 2.4 K/uL (1.0-4.8); LYMPHOCYTES % (AUTO) 24.9 % (22.0-44.0); MEAN CORPUSCULAR HEMOGLOBIN 32.5 pg (26.0-34.0); MEAN CORPUSCULAR HGB CONC 33.1 G/dL (31.0-37.0); MEAN CORPUSCULAR VOLUME 98 fL (80-100); MONOCYTES # (AUTO) 0.5 K/uL (0.1-1.0); MONOCYTES % (AUTO) 5.2 % (2.0-9.0); NEUTROPHILS # (AUTO) 6.4 K/uL (1.8-7.7); NEUTROPHILS % (AUTO) 67.3 % (40.0-70.0); PLATELET COUNT (AUTO) 343 K/uL (150-450); RED BLOOD CELL COUNT(AUTO) 3.98 MIL/uL (4.00-5.20); RED CELL DISTRIBUTION WIDTH 13.4 % (11.5-14.5)
[2020-07-05 10:00] LABS: ANION GAP 14 mmol/L (8-16); CARBON DIOXIDE 24 mmol/L (22-29); CHLORIDE 103 mmol/L (98-107); CREATININE 1.94 mg/dL (0.60-1.30); GLOMERULAR FILTR. RATE CALC 26 mL/min (>60); GLUCOSE,RANDOM 103 mg/dL (70-110); POTASSIUM 4.1 mmol/L (3.5-5.1); SODIUM SERUM 141 mmol/L (136-145); UREA NITROGEN, BLOOD 20 mg/dL (7-18)
[2020-07-05 10:06] LABS: ALANINE AMINOTRANSFERASE 99 U/L (12-78); ALBUMIN 4.9 g/dL (3.4-5.0); ALKALINE PHOSPHATASE 74 U/L (46-116); ASPARTATE AMINOTRANSFERASE 121 U/L (15-37); BILIRUBIN,TOTAL 0.5 mg/dL (0.1-1.0); TOTAL PROTEIN, SERUM 8.5 g/dL (6.4-8.2)
[2020-07-05 10:24] LABS: COVID AG,FIA SOURCE NASOPHARYNGEAL
[2020-07-05] MEDS ORDERED: LORazepam 2 MG TABLET PO PRN (11:00)
[2020-07-05] MEDS ORDERED: PNEUMOCOCCAL VACCINE POLYVALENT 0.5 ML VIAL [PPSV23] IM ONE (13:45)
[2020-07-05 16:00] VITALS: BP 139/82
[2020-07-06] MEDS ORDERED: LEVOTHYROXINE SODIUM 125 MCG TABLET PO ONE (06:30)
[2020-07-06 08:49] VITALS: BP 131/89
[2020-07-06] MEDS: AmLODIPine BESYLATE 5 MG TABLET PO SCH (09:17)
[2020-07-06] MEDS: ATORVASTATIN CALCIUM 20 MG TABLET PO SCH (09:17)
[2020-07-06] MEDS: LITHIUM CARBONATE 300 MG CAPSULE PO SCH (16:44)
[2020-07-06] MEDS: BENZTROPINE MESYLATE 1 MG TABLET PO SCH (16:44)
[2020-07-06 18:43] VITALS: BP 122/75
[2020-07-06] MEDS: RisperiDONE MICROSPHERES 37.5 MG/2 ML SYRINGE IM SCH (19:24)
[2020-07-07] MEDS: HALOPERIDOL 5 MG TABLET PO PRN (08:08)
[2020-07-07] MEDS: ATORVASTATIN CALCIUM 20 MG TABLET PO SCH (08:08)
[2020-07-07] MEDS: BENZTROPINE MESYLATE 1 MG TABLET PO SCH ×2 (08:08→16:44)
[2020-07-07] MEDS: LITHIUM CARBONATE 300 MG CAPSULE PO SCH ×2 (08:08→16:44)
[2020-07-07] MEDS: AmLODIPine BESYLATE 5 MG TABLET PO SCH (08:10)
[2020-07-07 08:31] LABS: CHOL/HDL RATIO 1.5 (3.9-5.7)
[2020-07-07 16:00] VITALS: BP 130/69
[2020-07-08] VITALS (8 sets, daily range): BP systolic 128–155; BP diastolic 71–90
[2020-07-08] MEDS: ATORVASTATIN CALCIUM 20 MG TABLET PO SCH (08:59)
[2020-07-08] MEDS: LITHIUM CARBONATE 300 MG CAPSULE PO SCH ×2 (08:59→16:00)
[2020-07-08] MEDS: BENZTROPINE MESYLATE 1 MG TABLET PO SCH ×2 (09:00→16:00)
[2020-07-08] MEDS: AmLODIPine BESYLATE 5 MG TABLET PO SCH (09:01)
[2020-07-08] MEDS: ZOLPIDEM TARTRATE 10 MG TABLET PO PRN (20:29)
[2020-07-09 01:13] VITALS: BP 140/79
[2020-07-09 08:36] VITALS: BP 145/88
[2020-07-09] MEDS: ATORVASTATIN CALCIUM 20 MG TABLET PO SCH (08:45)
[2020-07-09] MEDS: BENZTROPINE MESYLATE 1 MG TABLET PO SCH ×2 (08:45→16:38)
[2020-07-09] MEDS: AmLODIPine BESYLATE 5 MG TABLET PO SCH (08:45)
[2020-07-09] MEDS: LITHIUM CARBONATE 300 MG CAPSULE PO SCH ×2 (08:45→16:38)
[2020-07-09 16:00] VITALS: BP 106/65
[2020-07-09] MEDS ORDERED: PETROLATUM,WHITE 28 GM JELLY TP PRN (16:45)
[2020-07-09] MEDS ORDERED: BENZOCAINE/MENTHOL LOZENGE PO PRN (16:45)
[2020-07-09] MEDS ORDERED: BACITRACIN 28 GM OINTMENT TP PRN (16:45)
[2020-07-09] MEDS ORDERED: DOCUSATE SODIUM 100 MG CAPSULE PO PRN (16:45)
[2020-07-09] MEDS ORDERED: ALBUTEROL SULFATE HFA 90 MCG/PUFF 8 GM INHALER IH PRN (16:45)
[2020-07-09] MEDS ORDERED: IBUPROFEN 600 MG TABLET PO PRN (16:45)
[2020-07-09] MEDS ORDERED: MAGNESIUM HYDROXIDE SUSPENSION 30 ML UDCUP PO PRN (16:45)
[2020-07-09] MEDS ORDERED: CloNIDine HCL 0.1 MG TABLET PO PRN (16:45)
[2020-07-09] MEDS ORDERED: LOPERAMIDE HCL 2 MG CAPSULE PO PRN (16:45)
[2020-07-10 02:00] VITALS: BP 116/71
[2020-07-10 02:28] LABS: COVID AG,FIA SOURCE NASAL SWAB
[2020-07-10 08:25] VITALS: BP 131/72
[2020-07-10] MEDS: BENZTROPINE MESYLATE 1 MG TABLET PO SCH ×2 (09:15→17:24)
[2020-07-10] MEDS: AmLODIPine BESYLATE 5 MG TABLET PO SCH (09:15)
[2020-07-10] MEDS: ATORVASTATIN CALCIUM 20 MG TABLET PO SCH (09:15)
[2020-07-10] MEDS: LITHIUM CARBONATE 300 MG CAPSULE PO SCH ×2 (09:16→17:24)
[2020-07-10] MEDS: OMEPRAZOLE 20 MG CAPSULE PO PRN (15:13)
[2020-07-10 16:01] VITALS: BP 141/81
[2020-07-10 23:40] LABS: APPEARANCE,URINE CLEAR (CLEAR); BILIRUBIN,URINE NEGATIVE (NEGATIVE); GLUCOSE, URINE (UA) NEGATIVE (NEGATIVE); KETONES,URINE NEGATIVE (NEGATIVE); LEUKOCYTE ESTERASE ,URINE NEGATIVE (NEGATIVE); NITRATE,URINE NEGATIVE (NEGATIVE); OCCULT BLOOD,URINE NEGATIVE (NEGATIVE); PH,URINE 6.5 (5.0-8.0); PROTEIN,URINE TRACE (NEGATIVE); UROBILINOGEN,URINE 0.2 mg/dL (<=1.0)
[2020-07-11 06:11] VITALS: BP 110/65
[2020-07-11 07:32] LABS: ALBUMIN 3.4 g/dL (3.4-5.0); BILIRUBIN,TOTAL 0.3 mg/dL (0.1-1.0); CALCIUM, TOTAL 9.7 mg/dL (8.8-10.5); CREATININE 2.02 mg/dL (0.60-1.30); PHOSPHORUS 2.9 mg/dL (2.5-4.9); POTASSIUM 4.4 mmol/L (3.5-5.1); TOTAL PROTEIN, SERUM 6.7 g/dL (6.4-8.2)
[2020-07-11 08:00] VITALS: BP 167/94
[2020-07-11] MEDS: AmLODIPine BESYLATE 5 MG TABLET PO SCH (08:51)
[2020-07-11] MEDS: ATORVASTATIN CALCIUM 20 MG TABLET PO SCH (08:51)
[2020-07-11] MEDS: BENZTROPINE MESYLATE 1 MG TABLET PO SCH ×2 (08:51→16:51)
[2020-07-11] MEDS: LITHIUM CARBONATE 300 MG CAPSULE PO SCH ×2 (08:51→16:51)
[2020-07-11 16:35] VITALS: BP 136/77
[2020-07-12] MEDS: ATORVASTATIN CALCIUM 20 MG TABLET PO SCH (08:39)
[2020-07-12] MEDS: LITHIUM CARBONATE 300 MG CAPSULE PO SCH ×2 (08:39→16:09)
[2020-07-12] MEDS: BENZTROPINE MESYLATE 1 MG TABLET PO SCH ×2 (08:41→16:09)
[2020-07-12] MEDS: AmLODIPine BESYLATE 5 MG TABLET PO SCH (08:41)
[2020-07-12 08:42] VITALS: BP 142/80
[2020-07-12 16:26] VITALS: BP 119/72
[2020-07-12] MEDS: ZOLPIDEM TARTRATE 10 MG TABLET PO PRN (20:15)
[2020-07-13 08:56] VITALS: BP 123/54
[2020-07-13] MEDS: ATORVASTATIN CALCIUM 20 MG TABLET PO SCH (09:34)
[2020-07-13] MEDS: BENZTROPINE MESYLATE 1 MG TABLET PO SCH ×2 (09:35→16:02)
[2020-07-13] MEDS: LITHIUM CARBONATE 300 MG CAPSULE PO SCH ×2 (09:35→16:02)
[2020-07-13] MEDS: AmLODIPine BESYLATE 5 MG TABLET PO SCH (09:35)
[2020-07-13 16:18] VITALS: BP 131/76
[2020-07-14] MEDS: BENZTROPINE MESYLATE 1 MG TABLET PO SCH ×2 (08:27→16:18)
[2020-07-14] MEDS: ATORVASTATIN CALCIUM 20 MG TABLET PO SCH (08:27)
[2020-07-14] MEDS: AmLODIPine BESYLATE 5 MG TABLET PO SCH (08:27)
[2020-07-14] MEDS: LITHIUM CARBONATE 300 MG CAPSULE PO SCH ×2 (08:27→16:17)
[2020-07-14 08:49] VITALS: BP 140/66
[2020-07-14 11:05] LABS: CALCIUM, TOTAL 10.1 mg/dL (8.8-10.5); CREATININE 1.78 mg/dL (0.60-1.30); MAGNESIUM 2.4 mg/dL (1.80-2.40); PHOSPHORUS 2.9 mg/dL (2.5-4.9); POTASSIUM 4.5 mmol/L (3.5-5.1)
[2020-07-14] MEDS: MAG HYDROX/AL HYDROX/SIMETH ES 30 ML SUSPENSION UDCUP PO PRN (14:58)
[2020-07-14 16:42] VITALS: BP 123/73
[2020-07-15 09:35] VITALS: BP 114/61
[2020-07-15] MEDS: LITHIUM CARBONATE 300 MG CAPSULE PO SCH ×2 (10:04→16:10)
[2020-07-15] MEDS: AmLODIPine BESYLATE 5 MG TABLET PO SCH (10:04)
[2020-07-15] MEDS: ATORVASTATIN CALCIUM 20 MG TABLET PO SCH (10:04)
[2020-07-15] MEDS: BENZTROPINE MESYLATE 1 MG TABLET PO SCH ×2 (10:04→16:13)
[2020-07-15 16:00] VITALS: BP 112/66
[2020-07-16 08:38] VITALS: BP 109/51
[2020-07-16] MEDS: ATORVASTATIN CALCIUM 20 MG TABLET PO SCH (09:22)
[2020-07-16] MEDS: AmLODIPine BESYLATE 5 MG TABLET PO SCH (09:22)
[2020-07-16] MEDS: LITHIUM CARBONATE 300 MG CAPSULE PO SCH ×2 (09:22→16:02)
[2020-07-16] MEDS: BENZTROPINE MESYLATE 1 MG TABLET PO SCH ×2 (09:23→16:02)
[2020-07-16 13:55] LABS: COVID AG,FIA SOURCE NASOPHARYNGEAL
[2020-07-16 16:30] VITALS: BP 127/67
[2020-07-17 03:05] VITALS: BP 127/72
[2020-07-17 07:46] LABS: CALCIUM, TOTAL 10.1 mg/dL (8.8-10.5); CREATININE 1.77 mg/dL (0.60-1.30); POTASSIUM 4.9 mmol/L (3.5-5.1)
[2020-07-17] MEDS: AmLODIPine BESYLATE 5 MG TABLET PO SCH (09:01)
[2020-07-17] MEDS: LITHIUM CARBONATE 300 MG CAPSULE PO SCH ×2 (09:02→16:46)
[2020-07-17] MEDS: BENZTROPINE MESYLATE 1 MG TABLET PO SCH ×2 (09:02→16:46)
[2020-07-17] MEDS: ATORVASTATIN CALCIUM 20 MG TABLET PO SCH (09:02)
[2020-07-17 09:31] VITALS: BP 103/58
[2020-07-17 12:37] VITALS: BP 102/63
[2020-07-17 16:00] VITALS: BP 126/77
[2020-07-18 00:16] VITALS: BP 116/70
[2020-07-18] MEDS: BENZTROPINE MESYLATE 1 MG TABLET PO SCH ×2 (09:45→17:04)
[2020-07-18] MEDS: LITHIUM CARBONATE 300 MG CAPSULE PO SCH ×2 (09:46→17:04)
[2020-07-18] MEDS: ATORVASTATIN CALCIUM 20 MG TABLET PO SCH (09:46)
[2020-07-18] MEDS: AmLODIPine BESYLATE 5 MG TABLET PO SCH (09:46)
[2020-07-18 10:40] VITALS: BP 125/79
[2020-07-19 03:27] VITALS: BP 118/68
[2020-07-19] MEDS: LEVOTHYROXINE SODIUM 125 MCG TABLET PO SCH (06:19)
[2020-07-19 08:00] VITALS: BP 129/77
[2020-07-19] MEDS: AmLODIPine BESYLATE 5 MG TABLET PO SCH (09:09)
[2020-07-19] MEDS: BENZTROPINE MESYLATE 1 MG TABLET PO SCH ×2 (09:10→16:32)
[2020-07-19] MEDS: LITHIUM CARBONATE 300 MG CAPSULE PO SCH ×2 (09:10→16:32)
[2020-07-19] MEDS: ATORVASTATIN CALCIUM 20 MG TABLET PO SCH (09:10)
[2020-07-19 23:30] VITALS: BP 128/62
[2020-07-19] MEDS: LORazepam 2 MG TABLET PO PRN (23:38)
[2020-07-19] MEDS: ZOLPIDEM TARTRATE 10 MG TABLET PO PRN (23:38)
[2020-07-20] MEDS: LEVOTHYROXINE SODIUM 125 MCG TABLET PO SCH (06:09)
[2020-07-20 08:00] VITALS: BP 142/71
[2020-07-20] MEDS: BENZTROPINE MESYLATE 1 MG TABLET PO SCH ×2 (08:52→16:26)
[2020-07-20] MEDS: ATORVASTATIN CALCIUM 20 MG TABLET PO SCH (08:52)
[2020-07-20] MEDS: LITHIUM CARBONATE 300 MG CAPSULE PO SCH ×2 (08:52→16:23)
[2020-07-20] MEDS: AmLODIPine BESYLATE 5 MG TABLET PO SCH (08:52)
[2020-07-20] MEDS: LORazepam 2 MG TABLET PO PRN ×2 (08:55→16:34)
[2020-07-20] MEDS: MAG HYDROX/AL HYDROX/SIMETH ES 30 ML SUSPENSION UDCUP PO PRN (09:21)
[2020-07-20] MEDS: RisperiDONE MICROSPHERES 37.5 MG/2 ML SYRINGE IM SCH (09:28)
[2020-07-20 16:13] VITALS: BP 133/70
[2020-07-20 20:15] VITALS: BP 115/90
[2020-07-20 20:45] VITALS: BP 119/62
[2020-07-21] MEDS: LEVOTHYROXINE SODIUM 125 MCG TABLET PO SCH (06:33)
[2020-07-21] MEDS: HALOPERIDOL 5 MG TABLET PO PRN (07:02)
[2020-07-21] MEDS: LORazepam 2 MG TABLET PO PRN (07:02)
[2020-07-21 09:25] VITALS: BP 99/52
[2020-07-21] MEDS: BENZTROPINE MESYLATE 1 MG TABLET PO SCH ×2 (09:53→17:14)
[2020-07-21] MEDS: LITHIUM CARBONATE 300 MG CAPSULE PO SCH ×2 (09:53→17:13)
[2020-07-21] MEDS: ATORVASTATIN CALCIUM 20 MG TABLET PO SCH (09:53)
[2020-07-21 10:08] VITALS: BP 100/63
[2020-07-21] MEDS: AmLODIPine BESYLATE 5 MG TABLET PO SCH (10:08)
[2020-07-21 16:15] VITALS: BP 101/60
[2020-07-21 19:08] LABS: CREATININE 1.89 mg/dL (0.60-1.30)
[2020-07-21 19:43] LABS: LITHIUM 1.29 mmol/L (0.60-1.20)
[2020-07-22 01:19] VITALS: BP 113/60
[2020-07-22] MEDS: LORazepam 2 MG TABLET PO PRN (05:35)
[2020-07-22] MEDS: LEVOTHYROXINE SODIUM 125 MCG TABLET PO SCH (06:32)
[2020-07-22 08:29] VITALS: BP 117/91
[2020-07-22] MEDS: AmLODIPine BESYLATE 5 MG TABLET PO SCH (09:46)
[2020-07-22] MEDS: ATORVASTATIN CALCIUM 20 MG TABLET PO SCH (09:46)
[2020-07-22] MEDS: BENZTROPINE MESYLATE 1 MG TABLET PO SCH ×2 (09:46→16:02)
[2020-07-22 16:06] VITALS: BP 115/78
[2020-07-23 00:30] VITALS: BP 137/75
[2020-07-23] MEDS: LEVOTHYROXINE SODIUM 125 MCG TABLET PO SCH (06:56)
[2020-07-23 08:00] VITALS: BP 134/81
[2020-07-23] MEDS: AmLODIPine BESYLATE 5 MG TABLET PO SCH (08:56)
[2020-07-23] MEDS: BENZTROPINE MESYLATE 1 MG TABLET PO SCH ×2 (08:56→16:05)
[2020-07-23] MEDS: ATORVASTATIN CALCIUM 20 MG TABLET PO SCH (08:56)
[2020-07-23] MEDS: LORazepam 2 MG TABLET PO PRN (08:57)
[2020-07-23 12:57] LABS: COVID AG,FIA SOURCE NASOPHARYNGEAL
[2020-07-23 16:05] VITALS: BP 126/82
[2020-07-23] MEDS: ZOLPIDEM TARTRATE 10 MG TABLET PO PRN (21:04)
[2020-07-24] MEDS: LEVOTHYROXINE SODIUM 125 MCG TABLET PO SCH (06:34)
[2020-07-24] MEDS: ATORVASTATIN CALCIUM 20 MG TABLET PO SCH (09:02)
[2020-07-24] MEDS: AmLODIPine BESYLATE 5 MG TABLET PO SCH (09:02)
[2020-07-24] MEDS: BENZTROPINE MESYLATE 1 MG TABLET PO SCH ×2 (09:02→16:21)
[2020-07-24 09:09] VITALS: BP 126/63
[2020-07-24 16:03] VITALS: BP 109/65
[2020-07-25] MEDS: LEVOTHYROXINE SODIUM 125 MCG TABLET PO SCH (06:37)
[2020-07-25 08:00] VITALS: BP 115/63
[2020-07-25] MEDS: ATORVASTATIN CALCIUM 20 MG TABLET PO SCH (09:25)
[2020-07-25] MEDS: AmLODIPine BESYLATE 5 MG TABLET PO SCH (09:25)
[2020-07-25] MEDS: BENZTROPINE MESYLATE 1 MG TABLET PO SCH ×2 (09:25→16:27)
[2020-07-25] MEDS: HALOPERIDOL 5 MG TABLET PO PRN (09:28)
[2020-07-25] MEDS: LORazepam 2 MG TABLET PO PRN (09:28)
[2020-07-25 16:00] VITALS: BP 127/69
[2020-07-26 00:40] VITALS: BP 116/72
[2020-07-26] MEDS: LORazepam 2 MG TABLET PO PRN (00:44)
[2020-07-26] MEDS: LEVOTHYROXINE SODIUM 125 MCG TABLET PO SCH (06:17)
[2020-07-26 08:00] VITALS: BP 117/75
[2020-07-26] MEDS: ATORVASTATIN CALCIUM 20 MG TABLET PO SCH (08:26)
[2020-07-26] MEDS: AmLODIPine BESYLATE 5 MG TABLET PO SCH (08:26)
[2020-07-26] MEDS: BENZTROPINE MESYLATE 1 MG TABLET PO SCH ×2 (08:26→16:37)
[2020-07-26 16:01] VITALS: BP 126/76
[2020-07-27] MEDS: LEVOTHYROXINE SODIUM 125 MCG TABLET PO SCH (06:20)
[2020-07-27 08:00] VITALS: BP 124/71
[2020-07-27] MEDS: ATORVASTATIN CALCIUM 20 MG TABLET PO SCH (10:59)
[2020-07-27] MEDS: HALOPERIDOL 5 MG TABLET PO PRN (11:00)
[2020-07-27] MEDS: BENZTROPINE MESYLATE 1 MG TABLET PO SCH ×2 (11:01→16:51)
[2020-07-27] MEDS: AmLODIPine BESYLATE 5 MG TABLET PO SCH (11:01)
[2020-07-27 16:32] VITALS: BP 106/54
[2020-07-28] MEDS: LEVOTHYROXINE SODIUM 125 MCG TABLET PO SCH (06:36)
[2020-07-28 08:00] VITALS: BP 134/82
[2020-07-28] MEDS: BENZTROPINE MESYLATE 1 MG TABLET PO SCH ×2 (10:28→16:43)
[2020-07-28] MEDS: ATORVASTATIN CALCIUM 20 MG TABLET PO SCH (10:28)
[2020-07-28] MEDS: AmLODIPine BESYLATE 5 MG TABLET PO SCH (10:28)
[2020-07-28 16:00] VITALS: BP 132/85
[2020-07-29] MEDS: LEVOTHYROXINE SODIUM 125 MCG TABLET PO SCH (06:53)
[2020-07-29 08:30] VITALS: BP 113/57
[2020-07-29] MEDS: ATORVASTATIN CALCIUM 20 MG TABLET PO SCH (09:37)
[2020-07-29] MEDS: BENZTROPINE MESYLATE 1 MG TABLET PO SCH ×2 (09:37→16:24)
[2020-07-29] MEDS: AmLODIPine BESYLATE 5 MG TABLET PO SCH (09:37)
[2020-07-29 16:19] VITALS: BP 106/61
[2020-07-30] MEDS: LORazepam 2 MG TABLET PO PRN ×2 (00:22→08:37)
[2020-07-30] MEDS: HALOPERIDOL 5 MG TABLET PO PRN ×2 (00:22→08:37)
[2020-07-30] MEDS: LEVOTHYROXINE SODIUM 125 MCG TABLET PO SCH (06:31)
[2020-07-30] MEDS: ATORVASTATIN CALCIUM 20 MG TABLET PO SCH (08:19)
[2020-07-30] MEDS: BENZTROPINE MESYLATE 1 MG TABLET PO SCH ×2 (08:20→16:27)
[2020-07-30] MEDS: AmLODIPine BESYLATE 5 MG TABLET PO SCH (08:20)
[2020-07-30 08:35] VITALS: BP 112/64
[2020-07-30 16:24] LABS: COVID AG,FIA SOURCE NASOPHARYNGEAL
[2020-07-30 16:35] VITALS: BP 102/65
[2020-07-31] MEDS: LEVOTHYROXINE SODIUM 125 MCG TABLET PO SCH (07:17)
[2020-07-31 08:00] VITALS: BP 116/65
[2020-07-31] MEDS: ATORVASTATIN CALCIUM 20 MG TABLET PO SCH (08:41)
[2020-07-31] MEDS: BENZTROPINE MESYLATE 1 MG TABLET PO SCH ×2 (08:42→16:15)
[2020-07-31] MEDS: AmLODIPine BESYLATE 5 MG TABLET PO SCH (08:42)
[2020-07-31 16:11] VITALS: BP 106/68
[2020-07-31] MEDS: LORazepam 2 MG TABLET PO PRN (22:28)
[2020-07-31] MEDS: HALOPERIDOL 5 MG TABLET PO PRN (22:28)
[2020-08-01] MEDS: ONDANSETRON HCL 4 MG TABLET PO PRN (02:20)
[2020-08-01 02:30] VITALS: BP 167/99
[2020-08-01 05:51] VITALS: BP 140/91
[2020-08-01] MEDS: LEVOTHYROXINE SODIUM 125 MCG TABLET PO SCH (06:59)
[2020-08-01 07:18] LABS: HEMATOCRIT 29.9 % (36-46); HEMOGLOBIN 10.5 g/dL (12.0-16.0); MEAN CORPUSCULAR HEMOGLOBIN 33.8 pg (26.0-34.0); MEAN CORPUSCULAR HGB CONC 34.9 G/dL (31.0-37.0); MEAN CORPUSCULAR VOLUME 97 fL (80-100); PLATELET COUNT (AUTO) 227 K/uL (150-450); RED BLOOD CELL COUNT(AUTO) 3.09 MIL/uL (4.00-5.20); RED CELL DISTRIBUTION WIDTH 13.3 % (11.5-14.5)
[2020-08-01 08:07] VITALS: BP 143/83
[2020-08-01] MEDS: AmLODIPine BESYLATE 5 MG TABLET PO SCH (08:14)
[2020-08-01] MEDS: ATORVASTATIN CALCIUM 20 MG TABLET PO SCH (08:14)
[2020-08-01] MEDS: BENZTROPINE MESYLATE 1 MG TABLET PO SCH ×2 (08:14→16:19)
[2020-08-01] MEDS: LORazepam 2 MG TABLET PO PRN ×2 (08:16→16:19)
[2020-08-01 08:34] LABS: CALCIUM, TOTAL 9.3 mg/dL (8.8-10.5); CREATININE 1.51 mg/dL (0.60-1.30); MAGNESIUM 2.1 mg/dL (1.80-2.40); PHOSPHORUS 4.1 mg/dL (2.5-4.9); POTASSIUM 4.2 mmol/L (3.5-5.1)
[2020-08-01 11:07] LABS: BAND NEUTROPHILS % (MANUAL) 1 % (0-5); LYMPHOCYTES % (MANUAL) 18 % (22-44); MONOCYTES % (MANUAL) 2 % (2-9); SEGMENTED NEUTROPHILS % 79 % (40-70)
[2020-08-01] MEDS: HALOPERIDOL 5 MG TABLET PO PRN (16:19)
[2020-08-01 16:41] VITALS: BP 134/80
[2020-08-02 04:18] VITALS: BP 112/89
[2020-08-02] MEDS: LEVOTHYROXINE SODIUM 125 MCG TABLET PO SCH (07:00)
[2020-08-02] MEDS: AmLODIPine BESYLATE 5 MG TABLET PO SCH (08:26)
[2020-08-02] MEDS: ATORVASTATIN CALCIUM 20 MG TABLET PO SCH (08:26)
[2020-08-02] MEDS: BENZTROPINE MESYLATE 1 MG TABLET PO SCH ×2 (08:26→17:19)
[2020-08-02 08:30] VITALS: BP 120/83
[2020-08-02] MEDS: LORazepam 2 MG TABLET PO PRN (08:55)
[2020-08-02 17:46] VITALS: BP 121/71
[2020-08-03] MEDS: LEVOTHYROXINE SODIUM 125 MCG TABLET PO SCH (07:19)
[2020-08-03] MEDS: ATORVASTATIN CALCIUM 20 MG TABLET PO SCH (08:07)
[2020-08-03] MEDS: BENZTROPINE MESYLATE 1 MG TABLET PO SCH ×2 (08:07→16:11)
[2020-08-03 08:08] VITALS: BP 110/62
[2020-08-03] MEDS: AmLODIPine BESYLATE 5 MG TABLET PO SCH (08:08)
[2020-08-03] MEDS: RisperiDONE MICROSPHERES 37.5 MG/2 ML SYRINGE IM SCH (09:00)
[2020-08-03 16:19] VITALS: BP 133/81
[2020-08-03 20:42] VITALS: BP 129/79
[2020-08-04] MEDS: LEVOTHYROXINE SODIUM 125 MCG TABLET PO SCH (06:33)
[2020-08-04] MEDS: AmLODIPine BESYLATE 5 MG TABLET PO SCH (08:09)
[2020-08-04] MEDS: ATORVASTATIN CALCIUM 20 MG TABLET PO SCH (08:09)
[2020-08-04] MEDS: BENZTROPINE MESYLATE 1 MG TABLET PO SCH ×2 (08:09→16:57)
[2020-08-04 08:46] VITALS: BP 137/85
[2020-08-04 16:10] VITALS: BP 121/75
[2020-08-05] MEDS: LEVOTHYROXINE SODIUM 125 MCG TABLET PO SCH (06:30)
[2020-08-05] MEDS: HALOPERIDOL 5 MG TABLET PO PRN (09:59)
[2020-08-05] MEDS: BENZTROPINE MESYLATE 1 MG TABLET PO SCH ×2 (09:59→16:44)
[2020-08-05] MEDS: AmLODIPine BESYLATE 5 MG TABLET PO SCH (09:59)
[2020-08-05] MEDS: ATORVASTATIN CALCIUM 20 MG TABLET PO SCH (09:59)
[2020-08-05 16:00] VITALS: BP 117/69
[2020-08-06 00:55] VITALS: BP 121/73
[2020-08-06] MEDS: LORazepam 2 MG TABLET PO PRN (00:57)
[2020-08-06] MEDS: LEVOTHYROXINE SODIUM 125 MCG TABLET PO SCH (06:25)
[2020-08-06] MEDS: ATORVASTATIN CALCIUM 20 MG TABLET PO SCH (08:05)
[2020-08-06] MEDS: AmLODIPine BESYLATE 5 MG TABLET PO SCH (08:05)
[2020-08-06] MEDS: BENZTROPINE MESYLATE 1 MG TABLET PO SCH ×2 (08:05→16:33)
[2020-08-06] MEDS: HALOPERIDOL 5 MG TABLET PO PRN ×2 (08:08→12:45)
[2020-08-06 09:20] VITALS: BP 127/78
[2020-08-06 13:33] LABS: COVID AG,FIA SOURCE NASOPHARYNGEAL
[2020-08-06 16:03] VITALS: BP 124/69
[2020-08-07] MEDS: LEVOTHYROXINE SODIUM 125 MCG TABLET PO SCH (07:04)
[2020-08-07] MEDS: AmLODIPine BESYLATE 5 MG TABLET PO SCH (08:24)
[2020-08-07] MEDS: BENZTROPINE MESYLATE 1 MG TABLET PO SCH ×2 (08:24→16:35)
[2020-08-07] MEDS: LORazepam 2 MG TABLET PO PRN (08:24)
[2020-08-07] MEDS: ATORVASTATIN CALCIUM 20 MG TABLET PO SCH (08:24)
[2020-08-07 08:44] VITALS: BP 135/79
[2020-08-07 16:04] VITALS: BP 140/76
[2020-08-08] MEDS: LEVOTHYROXINE SODIUM 125 MCG TABLET PO SCH (06:56)
[2020-08-08] MEDS: ATORVASTATIN CALCIUM 20 MG TABLET PO SCH (08:16)
[2020-08-08] MEDS: LORazepam 2 MG TABLET PO PRN (08:17)
[2020-08-08] MEDS: BENZTROPINE MESYLATE 1 MG TABLET PO SCH ×2 (08:17→17:26)
[2020-08-08] MEDS: AmLODIPine BESYLATE 5 MG TABLET PO SCH (08:17)
[2020-08-08 08:30] VITALS: BP 105/59
[2020-08-08 16:15] VITALS: BP 120/79
[2020-08-09] MEDS: LEVOTHYROXINE SODIUM 125 MCG TABLET PO SCH (06:56)
[2020-08-09 08:12] VITALS: BP 120/66
[2020-08-09] MEDS: AmLODIPine BESYLATE 5 MG TABLET PO SCH (08:12)
[2020-08-09] MEDS: HALOPERIDOL 5 MG TABLET PO PRN (08:12)
[2020-08-09] MEDS: ATORVASTATIN CALCIUM 20 MG TABLET PO SCH (08:12)
[2020-08-09] MEDS: BENZTROPINE MESYLATE 1 MG TABLET PO SCH ×2 (08:12→16:59)
[2020-08-09 16:03] VITALS: BP 146/78
[2020-08-09] MEDS: DIVALPROEX SODIUM 250 MG DR TABLET PO SCH (16:59)
[2020-08-10] MEDS: LEVOTHYROXINE SODIUM 125 MCG TABLET PO SCH (06:36)
[2020-08-10] MEDS: HALOPERIDOL 5 MG TABLET PO PRN (07:57)
[2020-08-10] MEDS: AmLODIPine BESYLATE 5 MG TABLET PO SCH (07:57)
[2020-08-10] MEDS: BENZTROPINE MESYLATE 1 MG TABLET PO SCH ×2 (07:57→16:28)
[2020-08-10] MEDS: ATORVASTATIN CALCIUM 20 MG TABLET PO SCH (07:58)
[2020-08-10] MEDS: DIVALPROEX SODIUM 250 MG DR TABLET PO SCH ×2 (07:58→16:28)
[2020-08-10 08:32] VITALS: BP 129/68
[2020-08-10 16:15] VITALS: BP 120/77
[2020-08-10] MEDS: ACETAMINOPHEN 325 MG TABLET PO PRN (20:05)
[2020-08-11 03:38] VITALS: BP 126/74
[2020-08-11] MEDS: LORazepam 2 MG TABLET PO PRN ×2 (03:38→08:25)
[2020-08-11] MEDS: LEVOTHYROXINE SODIUM 125 MCG TABLET PO SCH (06:34)
[2020-08-11 08:04] VITALS: BP 128/89
[2020-08-11] MEDS: AmLODIPine BESYLATE 5 MG TABLET PO SCH (08:25)
[2020-08-11] MEDS: BENZTROPINE MESYLATE 1 MG TABLET PO SCH ×2 (08:25→17:26)
[2020-08-11] MEDS: HALOPERIDOL 5 MG TABLET PO PRN (08:25)
[2020-08-11] MEDS: ATORVASTATIN CALCIUM 20 MG TABLET PO SCH (08:42)
[2020-08-11] MEDS: DIVALPROEX SODIUM 250 MG DR TABLET PO SCH ×2 (08:42→17:25)
[2020-08-11 17:56] VITALS: BP 126/76
[2020-08-12] MEDS: LEVOTHYROXINE SODIUM 125 MCG TABLET PO SCH (06:51)
[2020-08-12] MEDS: ATORVASTATIN CALCIUM 20 MG TABLET PO SCH (08:15)
[2020-08-12] MEDS: BENZTROPINE MESYLATE 1 MG TABLET PO SCH ×2 (08:15→16:19)
[2020-08-12] MEDS: AmLODIPine BESYLATE 5 MG TABLET PO SCH (08:15)
[2020-08-12] MEDS: DIVALPROEX SODIUM 250 MG DR TABLET PO SCH ×2 (08:15→16:19)
[2020-08-12 08:21] VITALS: BP 107/63
[2020-08-12 16:57] VITALS: BP 136/82
[2020-08-13] MEDS: LEVOTHYROXINE SODIUM 125 MCG TABLET PO SCH (06:52)
[2020-08-13 07:13] LABS: BASOPHILS % (AUTO) 0.6 % (0.0-2.0); EOSINOPHILS % (AUTO) 2.9 % (1.0-6.0); HEMATOCRIT 30.5 % (36-46); HEMOGLOBIN 10.5 g/dL (12.0-16.0); LYMPHOCYTES # (AUTO) 1.3 K/uL (1.0-4.8); LYMPHOCYTES % (AUTO) 26.6 % (22.0-44.0); MEAN CORPUSCULAR HEMOGLOBIN 33.2 pg (26.0-34.0); MEAN CORPUSCULAR HGB CONC 34.3 G/dL (31.0-37.0); MEAN CORPUSCULAR VOLUME 97 fL (80-100); MONOCYTES # (AUTO) 0.5 K/uL (0.1-1.0); MONOCYTES % (AUTO) 10.5 % (2.0-9.0); NEUTROPHILS % (AUTO) 59.4 % (40.0-70.0); PLATELET COUNT (AUTO) 181 K/uL (150-450); RED BLOOD CELL COUNT(AUTO) 3.15 MIL/uL (4.00-5.20); RED CELL DISTRIBUTION WIDTH 12.9 % (11.5-14.5)
[2020-08-13 07:38] LABS: ALANINE AMINOTRANSFERASE 21 U/L (12-78); ALBUMIN 3.5 g/dL (3.4-5.0); ALKALINE PHOSPHATASE 64 U/L (46-116); ANION GAP 9 mmol/L (8-16); ASPARTATE AMINOTRANSFERASE 12 U/L (15-37); BILIRUBIN,TOTAL 0.3 mg/dL (0.1-1.0); CALCIUM, TOTAL 9.4 mg/dL (8.8-10.5); CARBON DIOXIDE 25 mmol/L (22-29); CHLORIDE 111 mmol/L (98-107); CHOL/HDL RATIO 1.8 (3.9-5.7); CHOLESTEROL 119 mg/dL (131-200); CREATININE 1.48 mg/dL (0.60-1.30); GLOMERULAR FILTR. RATE CALC 35 mL/min (>60); GLUCOSE,RANDOM 91 mg/dL (70-110); HDL CHOLESTEROL 68 mg/dL (40-60); LDL CHOL (CALC.) 42 mg/dL (0-130); POTASSIUM 4.5 mmol/L (3.5-5.1); SODIUM SERUM 145 mmol/L (136-145); TOTAL PROTEIN, SERUM 6.9 g/dL (6.4-8.2); TRIGLYCERIDES 44 mg/dL (15-150); UREA NITROGEN, BLOOD 26 mg/dL (7-18); VALPROIC ACID 37 mcg/mL (50-100)
[2020-08-13 07:56] LABS: LITHIUM < 0.20 mmol/L (0.60-1.20)
[2020-08-13 08:14] LABS: HEMOGLOBIN A1C 5.8 % (3.8-5.6)
[2020-08-13 08:24] VITALS: BP 130/91
[2020-08-13] MEDS: ATORVASTATIN CALCIUM 20 MG TABLET PO SCH (08:58)
[2020-08-13] MEDS: DIVALPROEX SODIUM 250 MG DR TABLET PO SCH ×2 (08:58→16:01)
[2020-08-13] MEDS: BENZTROPINE MESYLATE 1 MG TABLET PO SCH ×2 (09:00→16:01)
[2020-08-13] MEDS: AmLODIPine BESYLATE 5 MG TABLET PO SCH (09:00)
[2020-08-13 09:26] LABS: THYROID STIMULATING HORMONE 7.69 uIU/mL (0.36-3.74)
[2020-08-13 14:40] LABS: COVID AG,FIA SOURCE NASOPHARYNGEAL
[2020-08-13] MEDS: ACETAMINOPHEN 325 MG TABLET PO PRN (16:01)
[2020-08-13 17:04] VITALS: BP 134/80
[2020-08-14 01:31] VITALS: BP 133/81
[2020-08-14] MEDS: LORazepam 2 MG TABLET PO PRN (01:58)
[2020-08-14] MEDS: LEVOTHYROXINE SODIUM 150 MCG TABLET PO SCH (06:16)
[2020-08-14] MEDS: AmLODIPine BESYLATE 5 MG TABLET PO SCH (08:46)
[2020-08-14] MEDS: ATORVASTATIN CALCIUM 20 MG TABLET PO SCH (08:46)
[2020-08-14] MEDS: BENZTROPINE MESYLATE 1 MG TABLET PO SCH ×2 (08:46→17:20)
[2020-08-14] MEDS: DIVALPROEX SODIUM 250 MG DR TABLET PO SCH ×2 (08:46→17:20)
[2020-08-14 12:42] VITALS: BP 126/82
[2020-08-14 16:45] VITALS: BP 132/79
[2020-08-15 04:07] VITALS: BP 121/79
[2020-08-15] MEDS: LEVOTHYROXINE SODIUM 150 MCG TABLET PO SCH (06:58)
[2020-08-15 09:00] VITALS: BP 137/83
[2020-08-15] MEDS: DIVALPROEX SODIUM 250 MG DR TABLET PO SCH ×2 (09:15→16:38)
[2020-08-15] MEDS: ATORVASTATIN CALCIUM 20 MG TABLET PO SCH (09:15)
[2020-08-15] MEDS: AmLODIPine BESYLATE 5 MG TABLET PO SCH (09:16)
[2020-08-15] MEDS: BENZTROPINE MESYLATE 1 MG TABLET PO SCH ×2 (09:16→16:38)
[2020-08-15 16:00] VITALS: BP 128/81
[2020-08-15 19:17] VITALS: BP 138/80
[2020-08-16] MEDS: LEVOTHYROXINE SODIUM 150 MCG TABLET PO SCH (06:50)
[2020-08-16] MEDS: AmLODIPine BESYLATE 5 MG TABLET PO SCH (07:39)
[2020-08-16] MEDS: ATORVASTATIN CALCIUM 20 MG TABLET PO SCH (07:39)
[2020-08-16] MEDS: HALOPERIDOL 5 MG TABLET PO PRN (07:39)
[2020-08-16] MEDS: BENZTROPINE MESYLATE 1 MG TABLET PO SCH ×2 (07:40→16:21)
[2020-08-16] MEDS: DIVALPROEX SODIUM 250 MG DR TABLET PO SCH ×2 (07:40→16:21)
[2020-08-16 08:10] VITALS: BP 127/90
[2020-08-16] MEDS: OMEPRAZOLE 20 MG CAPSULE PO PRN (15:15)
[2020-08-16 16:06] VITALS: BP 122/81
[2020-08-17] MEDS: LEVOTHYROXINE SODIUM 150 MCG TABLET PO SCH (06:41)
[2020-08-17] MEDS: DIVALPROEX SODIUM 250 MG DR TABLET PO SCH ×2 (08:14→16:31)
[2020-08-17] MEDS: BENZTROPINE MESYLATE 1 MG TABLET PO SCH ×2 (08:14→16:31)
[2020-08-17] MEDS: ATORVASTATIN CALCIUM 20 MG TABLET PO SCH (08:14)
[2020-08-17] MEDS: AmLODIPine BESYLATE 5 MG TABLET PO SCH (08:14)
[2020-08-17] MEDS: RisperiDONE MICROSPHERES 37.5 MG/2 ML SYRINGE IM SCH (08:15)
[2020-08-17 09:19] VITALS: BP 148/79
[2020-08-17] MEDS: HALOPERIDOL 5 MG TABLET PO PRN ×2 (10:07→22:42)
[2020-08-17] MEDS: ONDANSETRON HCL 4 MG TABLET PO PRN (16:32)
[2020-08-17 16:35] VITALS: BP 138/86
[2020-08-18] MEDS: MAG HYDROX/AL HYDROX/SIMETH ES 30 ML SUSPENSION UDCUP PO PRN (02:26)
[2020-08-18 05:05] VITALS: BP 136/78
[2020-08-18] MEDS: HALOPERIDOL 5 MG TABLET PO PRN ×3 (05:50→15:49)
[2020-08-18] MEDS: LEVOTHYROXINE SODIUM 150 MCG TABLET PO SCH (06:47)
[2020-08-18 08:00] VITALS: BP 118/73
[2020-08-18] MEDS: BENZTROPINE MESYLATE 1 MG TABLET PO SCH ×2 (08:08→16:31)
[2020-08-18] MEDS: DIVALPROEX SODIUM 250 MG DR TABLET PO SCH ×2 (08:08→16:31)
[2020-08-18] MEDS: AmLODIPine BESYLATE 5 MG TABLET PO SCH (08:08)
[2020-08-18] MEDS: ATORVASTATIN CALCIUM 20 MG TABLET PO SCH (08:08)
[2020-08-18 16:14] VITALS: BP 138/86
[2020-08-18] MEDS: OMEPRAZOLE 20 MG CAPSULE PO PRN (20:59)
[2020-08-19] MEDS: HALOPERIDOL 5 MG TABLET PO PRN ×3 (00:40→21:06)
[2020-08-19] MEDS: LEVOTHYROXINE SODIUM 150 MCG TABLET PO SCH (06:35)
[2020-08-19] MEDS: ATORVASTATIN CALCIUM 20 MG TABLET PO SCH (08:17)
[2020-08-19] MEDS: DIVALPROEX SODIUM 250 MG DR TABLET PO SCH ×2 (08:17→16:15)
[2020-08-19] MEDS: AmLODIPine BESYLATE 5 MG TABLET PO SCH (08:17)
[2020-08-19] MEDS: ONDANSETRON HCL 4 MG TABLET PO PRN (08:17)
[2020-08-19] MEDS: BENZTROPINE MESYLATE 1 MG TABLET PO SCH ×2 (08:17→16:15)
[2020-08-19 16:06] VITALS: BP 140/80
[2020-08-20 05:10] VITALS: BP 121/85
[2020-08-20] MEDS: LEVOTHYROXINE SODIUM 150 MCG TABLET PO SCH (06:51)
[2020-08-20] MEDS: BENZTROPINE MESYLATE 1 MG TABLET PO SCH ×2 (08:08→16:18)
[2020-08-20] MEDS: ATORVASTATIN CALCIUM 20 MG TABLET PO SCH (08:08)
[2020-08-20] MEDS: DIVALPROEX SODIUM 250 MG DR TABLET PO SCH (08:08)
[2020-08-20] MEDS: ONDANSETRON HCL 4 MG TABLET PO PRN (08:08)
[2020-08-20] MEDS: AmLODIPine BESYLATE 5 MG TABLET PO SCH (08:08)
[2020-08-20] MEDS: HALOPERIDOL 5 MG TABLET PO PRN ×3 (08:08→18:54)
[2020-08-20 08:26] VITALS: BP 125/80
[2020-08-20 09:05] VITALS: BP 125/80
[2020-08-20] MEDS: ACETAMINOPHEN 325 MG TABLET PO PRN (09:10)
[2020-08-20 16:06] VITALS: BP 139/80
[2020-08-20] MEDS: DIVALPROEX SODIUM 500 MG DR TABLET PO SCH (16:19)
[2020-08-21 01:20] VITALS: BP 158/88
[2020-08-21] MEDS: HALOPERIDOL 5 MG TABLET PO PRN ×3 (02:27→20:38)
[2020-08-21 04:19] VITALS: BP 134/90
[2020-08-21] MEDS: ACETAMINOPHEN 325 MG TABLET PO PRN (04:19)
[2020-08-21] MEDS: LEVOTHYROXINE SODIUM 150 MCG TABLET PO SCH (06:02)
[2020-08-21 08:00] VITALS: BP 147/76
[2020-08-21] MEDS: AmLODIPine BESYLATE 5 MG TABLET PO SCH (09:12)
[2020-08-21] MEDS: ATORVASTATIN CALCIUM 20 MG TABLET PO SCH (09:12)
[2020-08-21] MEDS: DIVALPROEX SODIUM 500 MG DR TABLET PO SCH ×2 (09:12→16:11)
[2020-08-21] MEDS: BENZTROPINE MESYLATE 1 MG TABLET PO SCH ×2 (09:12→16:11)
[2020-08-21 16:31] VITALS: BP 134/86
[2020-08-22] MEDS: LEVOTHYROXINE SODIUM 150 MCG TABLET PO SCH (06:26)
[2020-08-22] MEDS: HALOPERIDOL 5 MG TABLET PO PRN ×3 (06:47→20:12)
[2020-08-22] MEDS: DIVALPROEX SODIUM 500 MG DR TABLET PO SCH ×2 (08:17→16:22)
[2020-08-22] MEDS: ATORVASTATIN CALCIUM 20 MG TABLET PO SCH (08:17)
[2020-08-22] MEDS: BENZTROPINE MESYLATE 1 MG TABLET PO SCH ×2 (08:17→16:22)
[2020-08-22] MEDS: AmLODIPine BESYLATE 5 MG TABLET PO SCH (08:17)
[2020-08-23] MEDS: LEVOTHYROXINE SODIUM 150 MCG TABLET PO SCH (06:12)
[2020-08-23] MEDS: ATORVASTATIN CALCIUM 20 MG TABLET PO SCH (07:57)
[2020-08-23] MEDS: DIVALPROEX SODIUM 500 MG DR TABLET PO SCH ×2 (07:57→16:02)
[2020-08-23] MEDS: AmLODIPine BESYLATE 5 MG TABLET PO SCH (07:57)
[2020-08-23] MEDS: BENZTROPINE MESYLATE 1 MG TABLET PO SCH ×2 (07:57→16:02)
[2020-08-23 08:45] VITALS: BP 125/75
[2020-08-23 16:06] VITALS: BP 142/81
[2020-08-23] MEDS: HALOPERIDOL 5 MG TABLET PO PRN (19:28)
[2020-08-24] MEDS: LEVOTHYROXINE SODIUM 150 MCG TABLET PO SCH (06:18)
[2020-08-24 08:15] VITALS: BP 159/91
[2020-08-24] MEDS: ATORVASTATIN CALCIUM 20 MG TABLET PO SCH (08:20)
[2020-08-24] MEDS: DIVALPROEX SODIUM 500 MG DR TABLET PO SCH ×2 (08:20→16:11)
[2020-08-24] MEDS: AmLODIPine BESYLATE 5 MG TABLET PO SCH (08:21)
[2020-08-24] MEDS: BENZTROPINE MESYLATE 1 MG TABLET PO SCH ×2 (08:21→16:11)
[2020-08-24 16:07] VITALS: BP 131/82
[2020-08-25] MEDS: HALOPERIDOL 5 MG TABLET PO PRN (01:51)
[2020-08-25] MEDS: LEVOTHYROXINE SODIUM 150 MCG TABLET PO SCH (06:17)
[2020-08-25] MEDS: BENZTROPINE MESYLATE 1 MG TABLET PO SCH ×2 (08:13→16:28)
[2020-08-25] MEDS: AmLODIPine BESYLATE 5 MG TABLET PO SCH (08:13)
[2020-08-25] MEDS: DIVALPROEX SODIUM 500 MG DR TABLET PO SCH ×2 (08:13→16:28)
[2020-08-25] MEDS: ATORVASTATIN CALCIUM 20 MG TABLET PO SCH (08:13)
[2020-08-25 08:24] VITALS: BP 130/55
[2020-08-25 18:22] VITALS: BP 123/85
[2020-08-26 01:32] VITALS: BP 153/100
[2020-08-26] MEDS: HALOPERIDOL 5 MG TABLET PO PRN ×2 (01:32→23:36)
[2020-08-26] MEDS: MAG HYDROX/AL HYDROX/SIMETH ES 30 ML SUSPENSION UDCUP PO PRN (04:41)
[2020-08-26] MEDS: LEVOTHYROXINE SODIUM 150 MCG TABLET PO SCH (06:21)
[2020-08-26] MEDS: AmLODIPine BESYLATE 5 MG TABLET PO SCH (08:25)
[2020-08-26] MEDS: ATORVASTATIN CALCIUM 20 MG TABLET PO SCH (08:25)
[2020-08-26] MEDS: BENZTROPINE MESYLATE 1 MG TABLET PO SCH ×2 (08:25→16:19)
[2020-08-26] MEDS: DIVALPROEX SODIUM 500 MG DR TABLET PO SCH ×2 (08:25→16:19)
[2020-08-26 08:46] LABS: APPEARANCE,URINE CLEAR (CLEAR); BILIRUBIN,URINE NEGATIVE (NEGATIVE); GLUCOSE, URINE (UA) NEGATIVE (NEGATIVE); KETONES,URINE NEGATIVE (NEGATIVE); LEUKOCYTE ESTERASE ,URINE NEGATIVE (NEGATIVE); NITRATE,URINE NEGATIVE (NEGATIVE); OCCULT BLOOD,URINE NEGATIVE (NEGATIVE); PH,URINE 6.5 (5.0-8.0); PROTEIN,URINE NEGATIVE (NEGATIVE); UROBILINOGEN,URINE 0.2 mg/dL (<=1.0)
[2020-08-26 12:00] VITALS: BP 100/78
[2020-08-26] MEDS: ACETAMINOPHEN 325 MG TABLET PO PRN ×2 (15:58→23:46)
[2020-08-26 16:00] VITALS: BP 134/82
[2020-08-26 23:45] VITALS: BP 130/74
[2020-08-27] MEDS: LEVOTHYROXINE SODIUM 150 MCG TABLET PO SCH (05:45)
[2020-08-27] MEDS: ACETAMINOPHEN 325 MG TABLET PO PRN (05:45)
[2020-08-27 05:49] VITALS: BP 147/85
[2020-08-27 08:00] VITALS: BP 156/104
[2020-08-27] MEDS: ATORVASTATIN CALCIUM 20 MG TABLET PO SCH (08:33)
[2020-08-27] MEDS: DIVALPROEX SODIUM 500 MG DR TABLET PO SCH ×2 (08:33→16:33)
[2020-08-27] MEDS: BENZTROPINE MESYLATE 1 MG TABLET PO SCH ×2 (08:34→16:33)
[2020-08-27] MEDS: AmLODIPine BESYLATE 5 MG TABLET PO SCH (08:34)
[2020-08-27 16:00] VITALS: BP 128/82
[2020-08-27] MEDS: HALOPERIDOL 5 MG TABLET PO PRN ×2 (19:00→23:10)
[2020-08-28 00:10] VITALS: BP 152/76
[2020-08-28] MEDS: ACETAMINOPHEN 325 MG TABLET PO PRN ×2 (00:10→09:11)
[2020-08-28] MEDS: LEVOTHYROXINE SODIUM 150 MCG TABLET PO SCH (06:25)
[2020-08-28] MEDS: HALOPERIDOL 5 MG TABLET PO PRN ×2 (09:11→16:18)
[2020-08-28] MEDS: AmLODIPine BESYLATE 5 MG TABLET PO SCH (09:11)
[2020-08-28] MEDS: DIVALPROEX SODIUM 500 MG DR TABLET PO SCH ×2 (09:11→16:17)
[2020-08-28] MEDS: ATORVASTATIN CALCIUM 20 MG TABLET PO SCH (09:11)
[2020-08-28] MEDS: BENZTROPINE MESYLATE 1 MG TABLET PO SCH ×2 (09:11→16:17)
[2020-08-28] MEDS: ONDANSETRON HCL 4 MG TABLET PO PRN (09:11)
[2020-08-28 09:39] VITALS: BP 153/96
[2020-08-28 16:38] VITALS: BP 146/78
[2020-08-29 05:25] VITALS: BP 143/71
[2020-08-29] MEDS: ACETAMINOPHEN 325 MG TABLET PO PRN (05:29)
[2020-08-29] MEDS: MAG HYDROX/AL HYDROX/SIMETH ES 30 ML SUSPENSION UDCUP PO PRN (05:56)
[2020-08-29] MEDS: LEVOTHYROXINE SODIUM 150 MCG TABLET PO SCH (06:33)
[2020-08-29 09:17] VITALS: BP 114/70
[2020-08-29] MEDS: BENZTROPINE MESYLATE 1 MG TABLET PO SCH ×2 (09:25→16:33)
[2020-08-29] MEDS: ATORVASTATIN CALCIUM 20 MG TABLET PO SCH (09:25)
[2020-08-29] MEDS: AmLODIPine BESYLATE 5 MG TABLET PO SCH (09:25)
[2020-08-29] MEDS: DIVALPROEX SODIUM 500 MG DR TABLET PO SCH ×2 (09:25→16:33)
[2020-08-30 01:00] VITALS: BP 142/64
[2020-08-30] MEDS: ACETAMINOPHEN 325 MG TABLET PO PRN (01:03)
[2020-08-30] MEDS: HALOPERIDOL 5 MG TABLET PO PRN ×2 (01:04→08:14)
[2020-08-30] MEDS: LEVOTHYROXINE SODIUM 150 MCG TABLET PO SCH (07:15)
[2020-08-30] MEDS: BENZTROPINE MESYLATE 1 MG TABLET PO SCH ×2 (08:12→16:25)
[2020-08-30] MEDS: DIVALPROEX SODIUM 500 MG DR TABLET PO SCH ×2 (08:12→16:25)
[2020-08-30] MEDS: ATORVASTATIN CALCIUM 20 MG TABLET PO SCH (08:12)
[2020-08-30] MEDS: AmLODIPine BESYLATE 5 MG TABLET PO SCH (08:12)
[2020-08-30] MEDS: OMEPRAZOLE 20 MG CAPSULE PO PRN (08:12)
[2020-08-30 08:50] VITALS: BP 103/67
[2020-08-30 16:00] VITALS: BP 148/91
[2020-08-30] MEDS: FUROSEMIDE 20 MG TABLET PO SCH (16:25)
[2020-08-31 01:40] VITALS: BP 152/99
[2020-08-31] MEDS: HALOPERIDOL 5 MG TABLET PO PRN ×2 (01:48→08:50)
[2020-08-31] MEDS: ACETAMINOPHEN 325 MG TABLET PO PRN (02:59)
[2020-08-31] MEDS: LEVOTHYROXINE SODIUM 150 MCG TABLET PO SCH (07:19)
[2020-08-31 08:44] VITALS: BP 124/91
[2020-08-31] MEDS: BENZTROPINE MESYLATE 1 MG TABLET PO SCH ×2 (08:49→16:27)
[2020-08-31] MEDS: AmLODIPine BESYLATE 5 MG TABLET PO SCH (08:49)
[2020-08-31] MEDS: DIVALPROEX SODIUM 500 MG DR TABLET PO SCH ×2 (08:49→16:27)
[2020-08-31] MEDS: ATORVASTATIN CALCIUM 20 MG TABLET PO SCH (08:49)
[2020-08-31] MEDS: FUROSEMIDE 20 MG TABLET PO SCH (08:50)
[2020-08-31] MEDS: RisperiDONE MICROSPHERES 37.5 MG/2 ML SYRINGE IM SCH (08:51)
[2020-08-31 16:09] VITALS: BP 121/81
[2020-08-31] MEDS: MAG HYDROX/AL HYDROX/SIMETH ES 30 ML SUSPENSION UDCUP PO PRN (19:26)
[2020-09-01] MEDS: HALOPERIDOL 5 MG TABLET PO PRN (01:10)
[2020-09-01 02:49] VITALS: BP 126/78
[2020-09-01] MEDS: LEVOTHYROXINE SODIUM 150 MCG TABLET PO SCH (07:00)
[2020-09-01] MEDS: FUROSEMIDE 20 MG TABLET PO SCH (08:49)
[2020-09-01] MEDS: BENZTROPINE MESYLATE 1 MG TABLET PO SCH ×2 (08:49→16:25)
[2020-09-01] MEDS: AmLODIPine BESYLATE 5 MG TABLET PO SCH (08:49)
[2020-09-01] MEDS: DIVALPROEX SODIUM 500 MG DR TABLET PO SCH ×2 (08:49→16:25)
[2020-09-01] MEDS: ATORVASTATIN CALCIUM 20 MG TABLET PO SCH (08:50)
[2020-09-01 19:19] VITALS: BP 153/80
[2020-09-02] MEDS: HALOPERIDOL 5 MG TABLET PO PRN ×2 (01:39→08:13)
[2020-09-02] MEDS: LEVOTHYROXINE SODIUM 150 MCG TABLET PO SCH (06:38)
[2020-09-02 06:54] LABS: BASOPHILS % (AUTO) 0.7 % (0.0-2.0); EOSINOPHILS % (AUTO) 3.3 % (1.0-6.0); HEMATOCRIT 29.5 % (36-46); HEMOGLOBIN 10.1 g/dL (12.0-16.0); LYMPHOCYTES % (AUTO) 39.3 % (22.0-44.0); MEAN CORPUSCULAR HEMOGLOBIN 33.2 pg (26.0-34.0); MEAN CORPUSCULAR HGB CONC 34.3 G/dL (31.0-37.0); MEAN CORPUSCULAR VOLUME 97 fL (80-100); MONOCYTES # (AUTO) 0.8 K/uL (0.1-1.0); MONOCYTES % (AUTO) 15.6 % (2.0-9.0); NEUTROPHILS % (AUTO) 41.1 % (40.0-70.0); PLATELET COUNT (AUTO) 183 K/uL (150-450); RED BLOOD CELL COUNT(AUTO) 3.05 MIL/uL (4.00-5.20); RED CELL DISTRIBUTION WIDTH 12.3 % (11.5-14.5)
[2020-09-02 06:59] LABS: HEMOGLOBIN A1C 5.6 % (3.8-5.6)
[2020-09-02 07:24] LABS: ALBUMIN 3.6 g/dL (3.4-5.0); BILIRUBIN,TOTAL 0.2 mg/dL (0.1-1.0); CALCIUM, TOTAL 9.6 mg/dL (8.8-10.5); CREATININE 1.61 mg/dL (0.60-1.30); MAGNESIUM 2.4 mg/dL (1.80-2.40); PHOSPHORUS 4.9 mg/dL (2.5-4.9); POTASSIUM 4.9 mmol/L (3.5-5.1); THYROID STIMULATING HORMONE 0.95 uIU/mL (0.36-3.74); TOTAL PROTEIN, SERUM 7.1 g/dL (6.4-8.2)
[2020-09-02] MEDS: FUROSEMIDE 20 MG TABLET PO SCH (08:10)
[2020-09-02] MEDS: DIVALPROEX SODIUM 500 MG DR TABLET PO SCH ×2 (08:10→16:33)
[2020-09-02] MEDS: BENZTROPINE MESYLATE 1 MG TABLET PO SCH ×2 (08:10→16:33)
[2020-09-02] MEDS: AmLODIPine BESYLATE 5 MG TABLET PO SCH (08:10)
[2020-09-02] MEDS: ATORVASTATIN CALCIUM 20 MG TABLET PO SCH (08:10)
[2020-09-03 00:40] VITALS: BP 138/82
[2020-09-03] MEDS: ACETAMINOPHEN 325 MG TABLET PO PRN (00:41)
[2020-09-03] MEDS: HALOPERIDOL 5 MG TABLET PO PRN ×3 (00:41→16:22)
[2020-09-03] MEDS: LEVOTHYROXINE SODIUM 150 MCG TABLET PO SCH (07:11)
[2020-09-03] MEDS: DIVALPROEX SODIUM 500 MG DR TABLET PO SCH ×2 (08:07→16:22)
[2020-09-03] MEDS: ATORVASTATIN CALCIUM 20 MG TABLET PO SCH (08:08)
[2020-09-03] MEDS: BENZTROPINE MESYLATE 1 MG TABLET PO SCH ×2 (08:08→16:22)
[2020-09-03] MEDS: AmLODIPine BESYLATE 5 MG TABLET PO SCH (08:08)
[2020-09-03] MEDS: FUROSEMIDE 20 MG TABLET PO SCH (08:08)
[2020-09-03 09:46] VITALS: BP 136/92
[2020-09-03 16:30] VITALS: BP 138/73
[2020-09-04] MEDS: HALOPERIDOL 5 MG TABLET PO PRN ×3 (02:23→14:47)
[2020-09-04 02:37] VITALS: BP 152/88
[2020-09-04] MEDS: ACETAMINOPHEN 325 MG TABLET PO PRN ×2 (03:09→19:01)
[2020-09-04] MEDS: LEVOTHYROXINE SODIUM 150 MCG TABLET PO SCH (07:12)
[2020-09-04 08:30] VITALS: BP 148/92
[2020-09-04] MEDS: DIVALPROEX SODIUM 500 MG DR TABLET PO SCH ×2 (08:36→16:03)
[2020-09-04] MEDS: AmLODIPine BESYLATE 5 MG TABLET PO SCH (08:36)
[2020-09-04] MEDS: ATORVASTATIN CALCIUM 20 MG TABLET PO SCH (08:36)
[2020-09-04] MEDS: BENZTROPINE MESYLATE 1 MG TABLET PO SCH ×2 (08:36→16:03)
[2020-09-04] MEDS: FUROSEMIDE 20 MG TABLET PO SCH (08:36)
[2020-09-04 16:13] VITALS: BP 131/76
[2020-09-04 19:00] VITALS: BP 139/82
[2020-09-05 00:50] VITALS: BP 165/70
[2020-09-05] MEDS: HALOPERIDOL 5 MG TABLET PO PRN ×3 (00:53→16:11)
[2020-09-05] MEDS: ACETAMINOPHEN 325 MG TABLET PO PRN ×2 (00:53→09:18)
[2020-09-05] MEDS: LEVOTHYROXINE SODIUM 150 MCG TABLET PO SCH (07:02)
[2020-09-05] MEDS: FUROSEMIDE 20 MG TABLET PO SCH (08:44)
[2020-09-05] MEDS: ATORVASTATIN CALCIUM 20 MG TABLET PO SCH (08:44)
[2020-09-05] MEDS: AmLODIPine BESYLATE 5 MG TABLET PO SCH (08:45)
[2020-09-05] MEDS: BENZTROPINE MESYLATE 1 MG TABLET PO SCH ×2 (08:45→16:11)
[2020-09-05] MEDS: DIVALPROEX SODIUM 500 MG DR TABLET PO SCH ×2 (08:50→16:11)
[2020-09-05 16:33] VITALS: BP 134/70
[2020-09-06 00:05] VITALS: BP 136/84
[2020-09-06] MEDS: HALOPERIDOL 5 MG TABLET PO PRN ×2 (00:05→08:29)
[2020-09-06] MEDS: ACETAMINOPHEN 325 MG TABLET PO PRN (00:05)
[2020-09-06] MEDS: LEVOTHYROXINE SODIUM 150 MCG TABLET PO SCH (07:05)
[2020-09-06] MEDS: FUROSEMIDE 20 MG TABLET PO SCH (08:26)
[2020-09-06] MEDS: ATORVASTATIN CALCIUM 20 MG TABLET PO SCH (08:26)
[2020-09-06] MEDS: AmLODIPine BESYLATE 5 MG TABLET PO SCH (08:27)
[2020-09-06] MEDS: DIVALPROEX SODIUM 500 MG DR TABLET PO SCH ×2 (08:27→16:22)
[2020-09-06] MEDS: BENZTROPINE MESYLATE 1 MG TABLET PO SCH ×2 (08:28→16:22)
[2020-09-06 09:05] VITALS: BP 145/71
[2020-09-06 09:09] VITALS: BP 124/67
[2020-09-06 16:28] VITALS: BP 120/85
[2020-09-06 21:34] LABS: COVID AG,FIA SOURCE NASAL SWAB
[2020-09-07 01:01] VITALS: BP 148/90
[2020-09-07] MEDS: LEVOTHYROXINE SODIUM 150 MCG TABLET PO SCH (07:02)
[2020-09-07] MEDS: DIVALPROEX SODIUM 500 MG DR TABLET PO SCH ×2 (08:19→16:03)
[2020-09-07] MEDS: BENZTROPINE MESYLATE 1 MG TABLET PO SCH ×2 (08:19→16:03)
[2020-09-07] MEDS: AmLODIPine BESYLATE 5 MG TABLET PO SCH (08:19)
[2020-09-07] MEDS: FUROSEMIDE 20 MG TABLET PO SCH (08:19)
[2020-09-07] MEDS: ATORVASTATIN CALCIUM 20 MG TABLET PO SCH (08:20)
[2020-09-07] MEDS: HALOPERIDOL 5 MG TABLET PO PRN ×2 (08:20→15:57)
[2020-09-07 09:40] VITALS: BP 113/64
[2020-09-07] MEDS ORDERED: FURO20 PO (13:18)
[2020-09-07] MEDS ORDERED: LEVO125T95 PO (13:18)
[2020-09-07] MEDS ORDERED: DIVA-112 PO (13:18)
== END 2020-09-07 16:30 | disposition home or self-care (01) | DRG 885 ==
LOC: EMS 08:20 → 3EX 10:58
PROVIDERS: ADMIT Psychiatry & Neurology Psychiatry; ATTEND Psychiatry & Neurology Psychiatry
DX: F25.0 Schizoaffective disorder, bipolar type (principal); N18.4 Chronic kidney disease, stage 4 (severe); I12.9 Hypertensive chronic kidney disease with stage 1 through stage 4 chronic kidney disease, or unspecified chronic kidney disease; E03.9 Hypothyroidism, unspecified; E78.5 Hyperlipidemia, unspecified; F41.9 Anxiety disorder, unspecified; J43.9 Emphysema, unspecified; Z20.822 Contact with and (suspected) exposure to COVID-19; Z59.0 Homelessness; Z87.891 Personal history of nicotine dependence; K59.09 Other constipation; R73.03 Prediabetes
CPT/HCPCS: 76770; 82565; 83036; 83735; 83970; 84100; 84443; 85007; 87426; 97116; 97162; 97165; 97530; 97535; 99285; G0378; G0480; J2794; J3535; Q0162

== ENCOUNTER 2020-09-17 15:15 | Emergency (ER) | payer MEDICARE ==
[~2020-09-17] VITALS: Ht 157.5 cm; Wt 63.6 kg
[~2020-09-17 15:15] MED LIST changes: +DIVA-112 PO; +FURO20 PO; -LEVO125 PO; +LEVO125T95 PO; -LITH300C3 PO; -MULT-1239 PO
[2020-09-17 15:17] VITALS: BP 139/74
== END 2020-09-17 17:16 | disposition left against medical advice (07) ==
LOC: EMS 15:15
DX: Z04.6 Encounter for general psychiatric examination, requested by authority (principal); Z53.21 Procedure and treatment not carried out due to patient leaving prior to being seen by health care provider

== ENCOUNTER 2021-02-16 16:31 | Emergency (ER) | payer MEDICARE, SELFPAY ==
[~2021-02-16] VITALS: Ht 152.4 cm; Wt 56.0 kg
[~2021-02-16 16:31] MED LIST changes: -FURO20 PO; +PROP10TA73 PO
[2021-02-16 16:33] VITALS: BP 118/82
== END 2021-02-16 18:12 | disposition left against medical advice (07) ==
LOC: EMS 16:34
DX: Z00.8 Encounter for other general examination (principal); Z53.21 Procedure and treatment not carried out due to patient leaving prior to being seen by health care provider

== ENCOUNTER 2021-05-31 22:54 | Emergency (ER) | payer MEDICARE ==
[~2021-05-31] VITALS: Ht 152.4 cm; Wt 54.5 kg
[2021-05-31 23:04] VITALS: BP 124/78
== END 2021-06-01 02:10 | disposition home or self-care (01) ==
LOC: EMS 22:57
DX: R41.0 Disorientation, unspecified (principal); Z76.0 Encounter for issue of repeat prescription; F17.210 Nicotine dependence, cigarettes, uncomplicated; M19.90 Unspecified osteoarthritis, unspecified site; F31.9 Bipolar disorder, unspecified; K21.9 Gastro-esophageal reflux disease without esophagitis; J43.9 Emphysema, unspecified; I10 Essential (primary) hypertension; E03.9 Hypothyroidism, unspecified; F20.9 Schizophrenia, unspecified
CPT/HCPCS: 99281; Z7502

== ENCOUNTER 2021-06-29 15:06 | Emergency (ER) | payer MEDICARE ==
[2021-06-29] MEDS ORDERED: ONDANSETRON HCL 4 MG TABLET PO ONE (17:00)
== END 2021-06-29 17:04 | disposition left against medical advice (07) ==
LOC: EMS 15:09
DX: R11.2 Nausea with vomiting, unspecified (principal); F31.9 Bipolar disorder, unspecified; I10 Essential (primary) hypertension; F20.9 Schizophrenia, unspecified; I12.9 Hypertensive chronic kidney disease with stage 1 through stage 4 chronic kidney disease, or unspecified chronic kidney disease; N18.9 Chronic kidney disease, unspecified; R42 Dizziness and giddiness; Z99.2 Dependence on renal dialysis; Z98.890 Other specified postprocedural states
CPT/HCPCS: 99283

== ENCOUNTER 2022-12-26 17:02 | Emergency (ER) | payer MEDICARE, MEDICAID ==
[~2022-12-26] VITALS: Ht 154.9 cm; Wt 56.8 kg
[~2022-12-26 17:02] MED LIST changes: +ATOR20TA PO; -ATOR20TA86 PO; -BENZ1TAB10 PO; +BENZ1TAB84 PO
[2022-12-26 17:21] VITALS: BP 143/74; PULSE 88; RESP 18; TEMP 98.2
[2022-12-26 18:22] LABS: BASOPHILS % (AUTO) 0.4 % (0.0-2.0); EOSINOPHILS % (AUTO) 1.6 % (1.0-6.0); HEMATOCRIT 34.7 % (36-46); HEMOGLOBIN 11.8 g/dL (12.0-16.0); LYMPHOCYTES # (AUTO) 2.3 K/uL (1.0-4.8); LYMPHOCYTES % (AUTO) 29.3 % (22.0-44.0); MEAN CORPUSCULAR HEMOGLOBIN 35.1 pg (26.0-34.0); MEAN CORPUSCULAR VOLUME 103 fL (80-100); MONOCYTES # (AUTO) 0.7 K/uL (0.1-1.0); MONOCYTES % (AUTO) 8.7 % (2.0-9.0); NEUTROPHILS # (AUTO) 4.6 K/uL (1.8-7.7); PLATELET COUNT (AUTO) 233 K/uL (150-450); RED BLOOD CELL COUNT(AUTO) 3.36 MIL/uL (4.00-5.20); RED CELL DISTRIBUTION WIDTH 14.4 % (11.5-14.5)
[2022-12-26 18:34] LABS: ANION GAP 9 mmol/L (8-16); CALCIUM, TOTAL 9.9 mg/dL (8.8-10.5); CARBON DIOXIDE 28 mmol/L (22-29); CHLORIDE 101 mmol/L (98-107); CREATININE 3.38 mg/dL (0.60-1.30); GLOMERULAR FILTR. RATE CALC 14 mL/min (>60); GLUCOSE,RANDOM 97 mg/dL (70-110); POTASSIUM 4.5 mmol/L (3.5-5.1); SODIUM SERUM 138 mmol/L (136-145)
[2022-12-26 18:40] LABS: ALANINE AMINOTRANSFERASE 13 U/L (12-78); ALBUMIN 3.8 g/dL (3.4-5.0); ALKALINE PHOSPHATASE 118 U/L (46-116); ASPARTATE AMINOTRANSFERASE 16 U/L (15-37); BILIRUBIN,TOTAL 0.3 mg/dL (0.1-1.0); TOTAL PROTEIN, SERUM 7.8 g/dL (6.4-8.2)
== END 2022-12-26 23:22 | disposition home or self-care (01) ==
LOC: EMS 17:04
DX: F32.A Depression, unspecified (principal); I10 Essential (primary) hypertension; R55 Syncope and collapse; J43.9 Emphysema, unspecified; Z91.040 Latex allergy status; N18.6 End stage renal disease; Z99.2 Dependence on renal dialysis
CPT/HCPCS: 99283; 80053; 85025; 36415; G0480

== ENCOUNTER 2024-03-16 17:09 | Emergency (ER) | payer MEDICARE, MEDICAID ==
[~2024-03-16] VITALS: Ht 152.4 cm; Wt 47.7 kg
[~2024-03-16 17:09] MED LIST changes: -AMLO2.5T96 PO; +BENZ-247 PO; -BENZ1TAB84 PO; +EPOE20002 SQ; +FOLI0.8T54 PO; +LITH300C3 PO; +SEVE0.8P7 PO
[2024-03-16 18:06] LABS: BASOPHILS % (AUTO) 0.5 % (0.0-2.0); EOSINOPHILS % (AUTO) 1.3 % (1.0-6.0); HEMATOCRIT 35.3 % (36-46); HEMOGLOBIN 11.8 g/dL (12.0-16.0); LYMPHOCYTES # (AUTO) 2.4 K/uL (1.0-4.8); LYMPHOCYTES % (AUTO) 36.1 % (22.0-44.0); MEAN CORPUSCULAR HEMOGLOBIN 32.8 pg (26.0-34.0); MEAN CORPUSCULAR HGB CONC 33.5 G/dL (31.0-37.0); MEAN CORPUSCULAR VOLUME 98 fL (80-100); MONOCYTES # (AUTO) 0.9 K/uL (0.1-1.0); MONOCYTES % (AUTO) 12.6 % (2.0-9.0); NEUTROPHILS # (AUTO) 3.4 K/uL (1.8-7.7); NEUTROPHILS % (AUTO) 49.5 % (40.0-70.0); PLATELET COUNT (AUTO) 167 K/uL (150-450); WHITE BLOOD COUNT (AUTO) 6.8 K/uL (4.5-11.0)
[2024-03-16 18:17] LABS: CALCIUM, TOTAL 9.2 mg/dL (8.8-10.5); CREATININE 1.93 mg/dL (0.60-1.30); POTASSIUM 3.6 mmol/L (3.5-5.1)
[2024-03-16 18:23] LABS: ALBUMIN 3.5 g/dL (3.4-5.0); BILIRUBIN,TOTAL 0.3 mg/dL (0.1-1.0)
[2024-03-16 18:24] LABS: TROPONIN I-HIGH SENSITIVITY 6 ng/L (<51)
[2024-03-16 18:58] LABS: APPEARANCE,URINE CLEAR (CLEAR); BILIRUBIN,URINE NEGATIVE (NEGATIVE); COLOR,URINE LIGHT YELLOW (YELLOW); GLUCOSE, URINE (UA) NEGATIVE (NEGATIVE); KETONES,URINE NEGATIVE (NEGATIVE); LEUKOCYTE ESTERASE ,URINE NEGATIVE (NEGATIVE); NITRATE,URINE NEGATIVE (NEGATIVE); OCCULT BLOOD,URINE NEGATIVE (NEGATIVE); PROTEIN,URINE NEGATIVE (NEGATIVE); SPECIFIC GRAVITIY, URINE 1.005 (1.003-1.030); UROBILINOGEN,URINE <=1.0 mg/dL (<=1.0)
[2024-03-16 19:04] LABS: ALCOHOL, URINE DRUG SCREEN NEGATIVE (NEGATIVE); AMPHET/METH SCREEN,URINE NEGATIVE (NEGATIVE); BARBITURATE SCREEN, URINE NEGATIVE (NEGATIVE); BENZODIAZEPINES SCREEN,URINE NEGATIVE (NEGATIVE); CANNABINOID SCREEN,URINE NEGATIVE (NEGATIVE); COCAINE SCREEN,URINE NEGATIVE (NEGATIVE); METHADONE SCREEN, URINE NEGATIVE (NEGATIVE); OPIATE SCREEN,URINE NEGATIVE (NEGATIVE); PHENCYCLIDINE SCREEN,URINE NEGATIVE (NEGATIVE)
[2024-03-16 19:30] VITALS: BP 128/63; PULSE 79; RESP 18; TEMP 97.3; O2SAT 97
== END 2024-03-17 00:25 | disposition home or self-care (01) ==
LOC: EMS 17:09
DX: F32.A Depression, unspecified (principal); E78.00 Pure hypercholesterolemia, unspecified; I10 Essential (primary) hypertension; F20.9 Schizophrenia, unspecified; Z98.890 Other specified postprocedural states; Z91.040 Latex allergy status
CPT/HCPCS: 99285; 71045; 80053; 80178; 82550; 83880; 84484; 85025; 36415; 93005; 80307; 81003; G0480

== ENCOUNTER 2024-06-02 13:25 | Emergency (ER) | payer MEDICARE, MEDICAID ==
[~2024-06-02] VITALS: Ht 152.4 cm; Wt 50.4 kg
[2024-06-02 14:08] VITALS: BP 125/67; PULSE 84; RESP 14; TEMP 98.3; O2SAT 98
[2024-06-02 14:31] LABS: EOSINOPHILS % (AUTO) 0.6 % (1.0-6.0); HEMATOCRIT 29.6 % (36-46); HEMOGLOBIN 9.9 g/dL (12.0-16.0); LYMPHOCYTES # (AUTO) 2.1 K/uL (1.0-4.8); LYMPHOCYTES % (AUTO) 22.7 % (22.0-44.0); MEAN CORPUSCULAR HEMOGLOBIN 32.8 pg (26.0-34.0); MEAN CORPUSCULAR HGB CONC 33.5 G/dL (31.0-37.0); MEAN CORPUSCULAR VOLUME 98 fL (80-100); MONOCYTES # (AUTO) 0.8 K/uL (0.1-1.0); MONOCYTES % (AUTO) 8.5 % (2.0-9.0); NEUTROPHILS # (AUTO) 6.1 K/uL (1.8-7.7); NEUTROPHILS % (AUTO) 67.2 % (40.0-70.0); PLATELET COUNT (AUTO) 160 K/uL (150-450); RED BLOOD CELL COUNT(AUTO) 3.02 MIL/uL (4.00-5.20); RED CELL DISTRIBUTION WIDTH 13.3 % (11.5-14.5); WHITE BLOOD COUNT (AUTO) 9.1 K/uL (4.5-11.0)
[2024-06-02 14:41] LABS: ANION GAP 7 mmol/L (8-16); CALCIUM, TOTAL 9.4 mg/dL (8.8-10.5); CARBON DIOXIDE 29 mmol/L (22-29); CHLORIDE 103 mmol/L (98-107); CREATININE 2.94 mg/dL (0.60-1.30); GLOMERULAR FILTR. RATE CALC 16 mL/min (>60); GLUCOSE,RANDOM 101 mg/dL (70-110); POTASSIUM 4.7 mmol/L (3.5-5.1); SODIUM SERUM 139 mmol/L (136-145); UREA NITROGEN, BLOOD 26 mg/dL (7-18)
[2024-06-02 14:45] LABS: ALCOHOL, BLOOD (SERUM) < 3 mg/dL (0-10)
== END 2024-06-02 15:48 | disposition home or self-care (01) ==
LOC: EMS 13:25
DX: F32.A Depression, unspecified (principal); I10 Essential (primary) hypertension; E78.00 Pure hypercholesterolemia, unspecified; F20.9 Schizophrenia, unspecified; Z91.040 Latex allergy status; Z99.2 Dependence on renal dialysis; Z79.899 Other long term (current) drug therapy
CPT/HCPCS: 99284; 80048; 85025; 36415; G0480